=== PATIENT | male | born 1980 | race Caucasian/White ===

== ENCOUNTER 2020-04-05 06:40 | Outpatient (REF) | payer OTHER, SELFPAY ==
[2020-04-05 07:16] LABS: MANUAL DIFF FLAG NO
[2020-04-05 07:33] LABS: Basophils Absolute Auto 0.1 X10*3/uL (0.0-0.2); Basophils Percent Auto 0.7 % (0-2); Eosinophils Absolute Auto 0.2 X10*3/uL (0.0-0.4); Eosinophils Percent Auto 2.8 % (0-4); Hematocrit 46.7 % (42-52); Hemoglobin 15.2 g/dl (14.0-18.0); Imm Gran Abs Auto 0.02 X10*3/uL (0.00-0.03); Imm Gran Pct Auto 0.3 % (0.0-0.4); Lymphocytes Absolute Auto 2.6 X10*3/uL (1.2-4.9); Lymphocytes Percent Auto 37.6 % (20-40); Mean Corpuscular HGB Conc 32.5 g/dl (31.0-36.0); Mean Corpuscular Hemoglobin 26.8 pg (27.0-33.0); Mean Corpuscular Volume 82.2 fL (80-98); Mean Platelet Volume 11.8 fL (9.4-12.4); Monocytes Absolute Auto 0.5 X10*3/uL (0.1-1.2); Monocytes Percent Auto 7.7 % (2-11); Neutrophils Absolute Auto 3.5 X10*3/uL (2.0-8.3); Neutrophils Percent Auto 50.9 % (45-73); Platelet Count 192 X10*3/uL (160-400); Red Blood Count 5.68 X10*6/uL (4.60-5.80); Red Cell Distribution Width 13.7 % (11.0-16.0); White Blood Count 6.9 X10*3/uL (4.8-10.8)
[2020-04-05 07:46] LABS: Alanine Aminotransferase 13 U/L (0-40); Albumin Level 4.2 g/dL (3.5-5.0); Alkaline Phosphatase 48 U/L (39-117); Anion Gap 10 (12-20); Aspartate Amino Transferase 11 U/L (5-37); Bilirubin Total 2.2 mg/dL (0.0-1.0); Blood Urea Nitrogen 16 mg/dL (9-16); Calcium 8.9 mg/dL (8.4-10.2); Carbon Dioxide 26 mmol/L (22-29); Chloride 109 mmol/L (96-108); Cholesterol 203 mg/dL; Estimated Glomerular Filt Rate > 60; Glucose Fasting 102 mg/dL (60-99); HDL Cholesterol 39 mg/dL; LDL Cholesterol Calculated 139 mg/dl; Potassium 4.2 mmol/L (3.3-5.1); Sodium 141 mmol/L (135-145); Total Protein 6.5 g/dL (6.5-8.0); Triglycerides 128 mg/dL
== END 2020-04-05 06:41 | disposition home or self-care (01) ==
LOC: HO.LAB 06:40
PROVIDERS: Visit Provider Internal Medicine
DX: Z00.00 Encounter for general adult medical examination without abnormal findings (principal); E11.9 Type 2 diabetes mellitus without complications
CPT/HCPCS: 36415; 80053; 80061; 85025

== ENCOUNTER 2020-04-28 05:24 | Emergency (ER) | payer OTHER, SELFPAY ==
[2020-04-28 05:25] VITALS: BP 139/83; PULSE 78; RESP 18; TEMP 36.6; O2SAT 98; BMI 29.0
--- NOTE | 2020-04-28 06:32 | ED_ITS ---
HPI - General Adult General Chief complaint: Neck Pain/Injury Stated complaint: Neck pain Time Seen by Provider: 04/28/20 06:20 Source: patient Mode of arrival: ambulatory Limitations: no limitations History of Present Illness HPI narrative: 40-year-old male who presents emergency department for evaluation of neck pain x4 days. The patient does not recount any injury. States he had a gradual onset of pain in his neck muscles. The patient points to his a occipital area and to his trapezius muscles bilaterally when asked to localize the pain. He states the pain is a constant, spasm like pain which is 9/10 at its worst. The pain is worse with movement. He denies radiation of the pain to his arms, he denies numbness or weakness of his arms or legs. He denied fever, chills, cough, shortness of breath or dyspnea on exertion. The patient states he has had similar problems in the past and has been seen in the emergency department and also has been treated by his primary care physician. He states that he has been taking Advil 200 mg pills once or twice a day with no relief his pain. He states that in the past, he has benefitted from muscle relaxants. Related Data Previous Rx's Medication Instructions Recorded cyclobenzaprine 10 mg PO TID PRN #20 tab 04/28/20 Allergies Allergy/AdvReac Type Severity Reaction Status Date / Time codeine Allergy Severe RASH Verified 04/02/20 15:12 [From TYLENOL-CODEINE #3] oxycodone Allergy Unknown Nausea Verified 04/02/20 15:12 Review of Systems Review of Systems: Yes all other systems are reviewed and are negative PMFSH Past Medical History Medical History (Updated 04/28/20 @ 06:39 by Cheng Foley MD) Physical exam Surgical History History of appendectomy History of hernia repair Family History Family History Father No problems noted. Mother No problems noted. Social History Social History Alcohol intake: never Smoking Status: Never smoker Advance Directives: No Advance Directives Information Provided: No Physical Exam Vital Signs: Vital Signs: Last Vital Signs Temp 98 F 03/10/21 05:25 Pulse 78 04/28/20 05:25 Resp 18 04/28/20 05:25 BP 139/83 04/28/20 05:25 Pulse Ox 98 04/28/20 05:25 Body Mass Index 29.0 Const: General: cooperative and healthy appearing Orientation/consciousness: oriented to person and oriented to place Limitations: no limitations HENMT: Head: Yes normal to inspection, Yes normocephalic and Yes atraumatic Ears: external ears normal General nose exam: Normal external nose present Face and sinus: Yes normal facial exam Mouth: Normal oral and palatal mucosa present Throat: Yes posterior oropharynx normal Eyes: Periorbital: periorbital findings normal Eyelids: Yes eyelids normal Conjunctivae: conjunctivae normal Sclerae: sclerae normal Corneas: corneas normal Pupils: Equal, round and reactive pupils present Direct Ophthalmoscopy: normal light reflex Neck: Neck: Yes normal visual inspection, Yes no lymphadenopathy, Yes no meningeal signs, Yes trachea midline, Yes supple and Yes tender (Trapezius muscle bilaterally with spasm) Chest: Chest palpation & inspection: normal inspection of the chest and normal palpation of entire chest wall Resp: Effort & Inspection: normal respiratory effort and able to speak in complete sentences Auscultation: clear to auscultation bilaterally Cardio: Rate: regular rate Rhythm: regular rhythm Heart sounds: S1 normal heart sound present, S2 normal heart sound present and no murmurs GI: Inspection: Yes normal to inspection Palpation (GI): Soft to palpation, nontender, no guarding, not rigid and No hepatosplenomegaly present : General: Yes no CVA tenderness Back/Spine/Pelvis: Back: no CVA tenderness Cervical Spine: normal cervical lordosis Thoracic/Lumbar Spine: thoracic and lumbar spine normal to ins pection Skin: Lesions: no lesions Rashes: no rashes Wounds: no wounds Neuro: General: oriented to person, oriented to place and no meningeal signs Cranial nerves: Yes CN's II-XII intact bilaterally and Yes Equal, round and reactive pupils present Cognition (Neuro): normal cognition Motor exam (neuro): 5/5 motor strength present throughout Extrem: General: Yes normal to inspection and Yes full ROM Psych: Appearance: well kempt Mental Status: mental status grossly normal Speech and movement: Normal speech and movement present Affect: normal affect Attitude: cooperative Thought process: Normal thought process pres ent Thought content: Normal thought content present Course Course Course Narrative: 40-year-old male who presents emergency department for evaluation of spasm like muscle pain his trapezius muscles x4 days, the patient reports no injury and no systemic illness. Physical examination did reveal tenderness with palpation of the trapezius muscles with spasm these muscles. The patient was advised to take ibuprofen 200 mg pills, 3 pills every 6 hours and Tylenol (acetaminophen) 500 mg pills, 2 pills every 4 to 6 hours as needed for pain. He was prescribed cyclobenzaprine 10 mg every 6-8 hours as needed for pain and spasm. He was given verbal and printed instructions and discharged home. Discharge Plan Discharge Clinical Impression: Strain of neck muscle Qualifiers: Encounter type: initial encounter Qualified Code(s): S16.1XXA - Strain of muscle, fascia and tendon at neck level, initial encounter Patient Disposition: Home, Self-Care Instructions: Acute Neck Pain (ED) Additional Instructions: Neck Pain Discharge Instructions: Take Motri(ibuprofen) 200 mg pills, 3 pills every 6 hours as needed for pain. Take Tyleno(acetaminophen) 500 mg pills, 2 pills every 6 hours as needed for pain. Take Flexerl(cyclobenzaprine) 10 mg pills, 1 pill every 8 hours as needed for pain or muscle spasm. This is a prescription medication. This medication will make you sleepy, therefore do not drive or work while taking this medication. Apply ice for 15 minutes to the area that hurts on your neck, then apply a heating a pad on low for 15 minutes. Do this 4-6 times a day to help reduce the pain in your neck. Continue with normal activities as tolerated since staying in bed and not moving around will make your pain worse. Please return to the Emergency Department or see your doctor immediately if your symptoms get worse or if you develop any new symptoms that are concerning you. Follow up with your doctor in 2 day. Please read the other printed discharge instructions on back pain. Prescriptions: New cyclobenzaprine 10 mg tablet 10 mg PO TID PRN (Reason: muscle pain or spasm) Qty: 20 RF: 0
== END 2020-04-28 06:48 | disposition home or self-care (01) ==
PROVIDERS: Emergency Provider Emergency Medicine Emergency Medical Services; PCP Internal Medicine
DX: S16.1XXA Strain of muscle, fascia and tendon at neck level, initial encounter (principal); M54.2 Cervicalgia; X58.XXXA Exposure to other specified factors, initial encounter; Y93.9 Activity, unspecified; Y92.9 Unspecified place or not applicable; Y99.9 Unspecified external cause status; Z79.899 Other long term (current) drug therapy
CPT/HCPCS: 99283

== ENCOUNTER 2021-02-14 10:14 | Emergency (ER) | payer OTHER, SELFPAY ==
[2021-02-14 11:14] VITALS: BP 142/86; PULSE 106; RESP 18; TEMP 36.9; O2SAT 96; BMI 30.4
--- NOTE | 2021-02-14 11:34 | ED.URI ---
HPI - URI/Sore Throat General Chief Complaint: Upper Respiratory Symptoms Stated Complaint: Sore throat Sinus pressure Time Seen by Provider: 02/14/21 11:30 Source: patient Mode of arrival: ambulatory Limitations: no limitations History of Present Illness MD elicited complaint: sore throat, rhinorrhea, nasal congestion and sinus pain Pertinent past history: other (vaccinated x 2) Onset (ago): day(s) (2) Consistency: constant Severity: mild Description of mucous: clear Able to tolerate fluids by mouth: Yes Exacerbating factors: nothing Relieving factors: nothing Context: other (hx of sinusitis in the past) Associated symptoms: nasal congestion and sore throat Treatments prior to arrival: none Related Data Previous Rx's Medication Instructions Recorded albuterol sulfate 90 mcg/actuation 2 puff PO Q6H PRN #18 g 01/05/21 aerosol inhaler (ProAir HFA) amoxicillin 875 mg-potassium 1 tab PO BID #14 tab 02/14/21 clavulanate 125 mg tablet (Augmentin) Allergies Allergy/AdvReac Type Severity Reaction Status Date / Time codeine Allergy Severe RASH Verified 02/14/21 11:13 [From TYLENOL-CODEINE #3] oxycodone Allergy Unknown Nausea Verified 02/14/21 11:13 Review of Systems Review of Systems: Constitutional : no Fever, no Chills, no fatigue, no Malaise ENT/Mouth : positive sore throat, positive runny nose, pos sinus pain Eyes: No Discharge Cardiovascular : No Chest Pain, No SOB Respiratory : No Cough, No Sputum Gastrointestinal : No Nausea, No Vomiting, No Diarrhea Genitourinary : No Dysuria, No Urinary Frequency Musculoskeletal : no Myalgia Skin : No rash Neuro : No Headache PMFSH Past Medical History Medical History Acute sinus infection Asthma Obesity Physical exam Surgical History History of appendectomy History of hernia repair Family History Family History Father No problems noted. Mother No problems noted. Social History Social History Housing: Apartment Alcohol intake: never Patient Tobacco Use Status: Never used Tobacco e-Cigarette/Vaping Use: Never Used Second Hand Smoke Exposure: No Advance Directives: No Advance Directives Information Provided: No service: No Current occupational status: unemployed Cognitive needs: No Hearing needs: No Vision needs: No Physical Exam Vital Signs: Vital Signs: Last Vital Signs Temp 98.5 F 02/14/21 11:14 Pulse 106 H 02/14/21 11:14 Resp 18 02/14/21 11:14 BP 142/86 H 02/14/21 11:14 Pulse Ox 96 02/14/21 11:14 BMI result Body Mass Index 30.4 Appearance: Alert. Oriented X3. No acute distress. Eyes: Pupils equal, round and reactive to light. ENT: Pharynx moderate generalized erythema no patches noted - also has sinus congestion and ttp along both maxillary sinuses no swelling noted Neck: Normal inspection. Neck supple. CVS: Normal heart rate and rhythm. Pulses normal. Respiratory: No respiratory distress. Breath sounds normal. Abdomen: Soft and nontender. Skin: Skin warm and dry. Normal skin color. Normal skin turgor. Extremities: No lower extremity edema. No calf ttp Neuro: Oriented X 3. No motor deficit. No sensory deficit. MDM - URI/Sore Throat MDM Narrative Medical decision making narrative: 40 yo male hx of asthma here with sore throat and sinus pressure and congestion - at this time not toxic, no hypoxia he has had two of his pfizer shots - hx of sinusitis in the past feels the same will order strep and COVID swabs. Likely start on augmentin. Lab Data Labs: Lab Results 02/14/21 02/14/21 Range/Units 11:26 11:54 COVID-19 (DOMI) Negative (Negative) COVID-19 Clin Com See Note S. pyogenes GrpA ILDA Negative (Negative) Discharge Plan Discharge Clinical Impression: Sinusitis Qualifiers: Sinusitis location: maxillary Chronicity: acute Recurrence: non-recurrent Qualified Code(s): J01.00 - Acute maxillary sinusitis, unspecified Patient Disposition: Home, Self-Care Instructions: Sinusitis (ED) Additional Instructions: return to ED for any worsening symptoms or concerns COVID negative please get the booster it is preventing serious illness from the new COVID variants Prescriptions: New amoxicillin-pot clavulanate [Augmentin] 875-125 mg tablet 1 tab PO BID Qty: 14 RF: 0 No Action albuterol sulfate [ProAir HFA] 90 mcg/actuation HFA aerosol inhaler 2 puff PO Q6H PRN (Reason: bronchospasm) Qty: 18 RF: 8 Referrals: Crow Omer MD [Primary Care Provider] - 2 days (if not better) Interventions: ED Discharge Assessment Last Done: 02/14/21 12:26 Discharge Date/Time: 02/14/21 12:27
[2021-02-14 11:50] LABS: COVID-19 Test Negative (Negative)
[2021-02-14 12:20] LABS: Strep A Nucleic Acid Negative (Negative)
== END 2021-02-14 12:27 | disposition home or self-care (01) ==
PROVIDERS: Emergency Provider Emergency Medicine; PCP Internal Medicine
DX: J01.00 Acute maxillary sinusitis, unspecified (principal); J45.909 Unspecified asthma, uncomplicated; Z20.822 Contact with and (suspected) exposure to COVID-19
CPT/HCPCS: 36415; 87635; 87651; 99283

== ENCOUNTER 2021-04-04 09:43 | Outpatient (REF) | payer OTHER, SELFPAY ==
[2021-04-04 09:54] LABS: MANUAL DIFF FLAG NO
[2021-04-04 10:41] LABS: Alanine Aminotransferase 16 U/L (0-40); Albumin Level 4.5 g/dL (3.5-5.0); Alkaline Phosphatase 55 U/L (39-117); Anion Gap 10 (12-20); Aspartate Amino Transferase 12 U/L (5-37); Bilirubin Total 2.3 mg/dL (0.0-1.0); Blood Urea Nitrogen 13 mg/dL (9-16); Carbon Dioxide 28 mmol/L (22-29); Chloride 107 mmol/L (96-108); Cholesterol 233 mg/dL; Estimated Glomerular Filt Rate > 60; Glucose Fasting 110 mg/dL (60-99); HDL Cholesterol 34 mg/dL; LDL Cholesterol Calculated 163 mg/dl; Potassium 4.4 mmol/L (3.3-5.1); Sodium 141 mmol/L (135-145); Total Protein 7.1 g/dL (6.5-8.0); Triglycerides 182 mg/dL
[2021-04-04 10:47] LABS: Basophils Percent Auto 0.5 % (0-2); Eosinophils Absolute Auto 0.2 X10*3/uL (0.0-0.4); Eosinophils Percent Auto 2.6 % (0-4); Hematocrit 47.5 % (42.0-52.0); Hemoglobin 15.6 g/dl (14.0-18.0); Imm Gran Abs Auto 0.02 X10*3/uL (0.00-0.03); Imm Gran Pct Auto 0.3 % (0.0-0.4); Lymphocytes Absolute Auto 2.5 X10*3/uL (1.2-4.9); Lymphocytes Percent Auto 34.1 % (20-40); Mean Corpuscular HGB Conc 32.8 g/dl (31.0-36.0); Mean Corpuscular Hemoglobin 26.9 pg (27.0-33.0); Mean Corpuscular Volume 81.8 fL (80.0-98.0); Mean Platelet Volume 12.2 fL (9.4-12.4); Monocytes Absolute Auto 0.7 X10*3/uL (0.1-1.2); Monocytes Percent Auto 8.9 % (2-11); Neutrophils Percent Auto 53.6 % (45-73); Platelet Count 207 X10*3/uL (160-400); Red Blood Count 5.81 X10*6/uL (4.60-5.80); White Blood Count 7.5 X10*3/uL (4.8-10.8)
== END 2021-04-04 09:44 | disposition home or self-care (01) ==
LOC: HO.LAB 09:43
PROVIDERS: PCP Internal Medicine; Visit Provider Internal Medicine
DX: Z00.00 Encounter for general adult medical examination without abnormal findings (principal); Z13.0 Encounter for screening for diseases of the blood and blood-forming organs and certain disorders involving the immune mechanism
CPT/HCPCS: 36415; 80053; 80061; 85025

== ENCOUNTER 2021-06-21 06:23 | Emergency (ER) | payer OTHER, SELFPAY ==
--- NOTE | ~2021-06-21 | XR_ITS ---
EXAMINATION: XR CHEST CLINICAL INFORMATION: Cough, Covid positive COMPARISON: 04/05/2018 TECHNIQUE: Frontal view of the chest was obtained. FINDINGS: The cardiomediastinal silhouette is normal. There is no dense consolidation, pleural effusion or pneumothorax. XR/XR chest 1V IMPRESSION: No acute cardiopulmonary process.
[2021-06-21 06:36] VITALS: BP 144/103; PULSE 81; RESP 18; TEMP 36.4; O2SAT 94; BMI 29.8
[2021-06-21 06:49] LABS: COVID-19 Test Positive (Negative); IDNOW Serial# 55D5AD1C
[2021-06-21 06:55] LABS: Influenza A Negative (Negative); Influenza B2 Negative (Negative)
--- NOTE | 2021-06-21 07:16 | ED.URI ---
HPI - URI/Sore Throat General Chief Complaint: General Medical Stated Complaint: flu like symptoms Time Seen by Provider: 06/21/21 06:58 Source: patient Mode of arrival: ambulatory Limitations: no limitations History of Present Illness MD elicited complaint: cough, nasal congestion and sinus pain Pertinent past history: sinusitis and asthma Onset (ago): day(s) (5) Consistency: constant Severity: mild Description of mucous: clear Able to tolerate fluids by mouth: Yes Exacerbating factors: supine positioning Relieving factors: nothing Context: other (vaccinated x 2) Associated symptoms: nasal congestion and cough Treatments prior to arrival: none Related Data Previous Rx's Medication Instructions Recorded albuterol sulfate 90 mcg/actuation 2 puff PO Q6H PRN #18 g 01/05/21 aerosol inhaler (ProAir HFA) amoxicillin 500 mg tablet 500 mg PO BID 7 Days #14 tab 06/21/21 Allergies Allergy/AdvReac Type Severity Reaction Status Date / Time codeine Allergy Severe RASH Verified 04/04/21 08:59 [From TYLENOL-CODEINE #3] oxycodone Allergy Unknown Nausea Verified 04/04/21 08:59 Review of Systems Review of Systems: Constitutional : No Fever, No Chills, No Fatigue, No Malaise ENT/Mouth : No sore throat, No Rhinorrhea, pos sinus pain, pos nasal congestion Eyes: No Eye Pain, No Swelling, No Redness Cardiovascular : No Chest Pain, No SOB, No Dyspnea on Exertion, No Orthopnea, No Edema, No Palpitations Respiratory : pos Cough, No Sputum, No Wheezing Gastrointestinal : No Nausea, No Vomiting, No Diarrhea, No Constipation, No abdominal Pain, No Hematochezia, No Melena Genitourinary : No Dysuria, No Urinary Frequency, No Hematuria, Musculoskeletal : No joint pain, No Myalgias, No Joint Swelling Skin : No Skin Lesions, No rash Neuro : No Weakness, No Numbness, No Dizziness, No Headache All other systems reviewed and are negative [facility] Past Medical History Attestation statement: The following information was validated with the patient. Medical History Acute sinus infection Asthma Obesity Physical exam Surgical History History of appendectomy History of hernia repair Family History Family History Father No problems noted. Mother No problems noted. Social History Social History Housing: Apartment Alcohol intake: never Patient Tobacco Use Status: Never used Tobacco e-Cigarette/Vaping Use: Never Used Second Hand Smoke Exposure: No Advance Directives: No Advance Directives Information Provided: Yes service: No Current occupational status: unemployed Cognitive needs: No Hearing needs: No Vision needs: No Physical Exam Vital Signs: Vital Signs: Last Vital Signs Temp 98.4 F 06/21/21 07:57 Pulse 73 06/21/21 07:57 Resp 16 06/21/21 07:57 BP 130/87 06/21/21 07:57 Pulse Ox 97 06/21/21 07:57 BMI result Body Mass Index 29.8 Appearance: Alert. Oriented X3. No acute distress. Eyes: Pupils equal, round and reactive to light. ENT: Pharynx normal. Neck: Normal inspection. Neck supple. CVS: Normal heart rate and rhythm. Pulses normal. Respiratory: No respiratory distress. Breath sounds normal. Abdomen: Soft and non-tender. Skin: Skin warm and dry. Normal skin color. Normal skin turgor. Extremities: No lower extremity edema. Neuro: Oriented X 3. No motor deficit. No sensory deficit. MDM - URI/Sore Throat MDM Narrative Medical decision making narrative: 41 yo male hx of sinusitis and asthma vaccinated x 2 here with c/o URI symptoms x 5 days - at this time given asthma hx of and obesity would quality for treatments for COVID he has no resp distress 98% in the room - will refer to [facility]. Dx with COVID. Does not require inpatient treatment denies CP/SOB. Lab Data Result diagrams: 06/21/21 07:50 06/21/21 07:50 Labs: Lab Results 06/21/21 06/21/21 06/21/21 Range/Units 06:33 06:33 07:50 WBC 6.8 (4.8-10.8) X10*3/uL RBC 5.55 (4.60-5.80) X10*6/uL Hgb 14.8 (14.0-18.0) g/dl Hct 44.9 (42.0-52.0) % MCV 80.9 (80.0-98.0) fL MCH 26.7 L (27.0-33.0) pg MCHC 33.0 (31.0-36.0) g/dl RDW 14.3 (11.0-16.0) % Plt Count 160 (160-400) X10*3/uL MPV 11.0 (9.4-12.4) fL Immature Gran % (Auto) 0.3 (0.0-0.4) % Neut % (Auto) 55.3 (45-73) % Lymph % (Auto) 27.5 (20-40) % Gosper % (Auto) 12.4 H (2-11) % Eos % (Auto) 4.2 H (0-4) % Baso % (Auto) 0.3 (0-2) % Lymph # (Auto) 1.9 (1.2-4.9) X10*3/uL Gosper # (Auto) 0.9 (0.1-1.2) X10*3/uL Eos # (Auto) 0.3 (0.0-0.4) X10*3/uL Baso # (Auto) 0.0 (0.0-0.2) X10*3/uL Abs Immat Gran (auto) 0.02 (0.00-0.03) X10*3/uL Absolute Neuts (auto) 3.8 (2.0-8.3) x10*3/uL Absolute Nucleated RBC 0.000 (0.0-0.012) X10*3/uL Nucleated RBC % (auto) 0.0 (0.0-0.2) /100WBC Sodium (135-145) mmol/L Potassium (3.3-5.1) mmol/L Chloride (96-108) mmol/L Carbon Dioxide (22-29) mmol/L Anion Gap (12-20) BUN (9-16) mg/dL Creatinine (0.5-1.4) mg/dL Estim Creat Clear Calc Estimated GFR Random Glucose (60-115) mg/dL Calcium (8.4-10.2) mg/dL Total Bilirubin (0.0-1.0) mg/dL Direct Bilirubin (0.0-0.5) mg/dL AST (5-37) U/L ALT (0-40) U/L Alkaline Phosphatase (39-117) U/L Total Protein (6.5-8.0) g/dL Albumin (3.5-5.0) g/dL COVID-19 (DOMI) Positive A (Negative) COVID-19 Clin Com See Note Influenza Type A (ILDA) Negative (Negative) Influenza Type B (ILDA) Negative (Negative) Influenza A & B Note See Note 06/21/21 Range/Units 07:50 WBC (4.8-10.8) X10*3/uL RBC (4.60-5.80) X10*6/uL Hgb (14.0-18.0) g/dl Hct (42.0-52.0) % MCV (80.0-98.0) fL MCH (27.0-33.0) pg MCHC (31.0-36.0) g/dl RDW (11.0-16.0) % Plt Count (160-400) X10*3/uL MPV (9.4-12.4) fL Immature Gran % (Auto) (0.0-0.4) % Neut % (Auto) (45-73) % Lymph % (Auto) (20-40) % Gosper % (Auto) (2-11) % Eos % (Auto) (0-4) % Baso % (Auto) (0-2) % Lymph # (Auto) (1.2-4.9) X10*3/uL Gosper # (Auto) (0.1-1.2) X10*3/uL Eos # (Auto) (0.0-0.4) X10*3/uL Baso # (Auto) (0.0-0.2) X10*3/uL Abs Immat Gran (auto) (0.00-0.03) X10*3/uL Absolute Neuts (auto) (2.0-8.3) x10*3/uL Absolute Nucleated RBC (0.0-0.012) X10*3/uL Nucleated RBC % (auto) (0.0-0.2) /100WBC Sodium 140 (135-145) mmol/L Potassium 4.3 (3.3-5.1) mmol/L Chloride 107 (96-108) mmol/L Carbon Dioxide 26 (22-29) mmol/L Anion Gap 11 L (12-20) BUN 10 (9-16) mg/dL Creatinine 0.89 (0.5-1.4) mg/dL Estim Creat Clear Calc 133.6 Estimated GFR > 60 Random Glucose 108 (60-115) mg/dL Calcium 9.1 D (8.4-10.2) mg/dL Total Bilirubin 1.0 (0.0-1.0) mg/dL Direct Bilirubin 0.3 (0.0-0.5) mg/dL AST 18 D (5-37) U/L ALT 28 (0-40) U/L Alkaline Phosphatase 52 (39-117) U/L Total Protein 6.7 (6.5-8.0) g/dL Albumin 4.0 (3.5-5.0) g/dL COVID-19 (DOMI) (Negative) COVID-19 Clin Com Influenza Type A (ILDA) (Negative) Influenza Type B (ILDA) (Negative) Influenza A & B Note Discharge Plan Discharge Clinical Impression: COVID-19 Sinusitis Qualifiers: Sinusitis location: maxillary Chronicity: acute Recurrence: non-recurrent Qualified Code(s): J01.00 - Acute maxillary sinusitis, unspecified Patient Disposition: Home, Self-Care Instructions: Sinusitis (ED), COVID-19 (Coronavirus Disease 2019) (ED) Additional Instructions: return to ED for any worsening symptoms or concerns you were reffered [facility] they will be contacting you labs and chest xray were normal Prescriptions: New amoxicillin 500 mg tablet 500 mg PO BID 7 Days Qty: 14 0RF No Action albuterol sulfate [ProAir HFA] 90 mcg/actuation HFA aerosol inhaler 2 puff PO Q6H PRN (Reason: bronchospasm) Qty: 18 8RF Stand Alone Forms: Work/School Release
[2021-06-21 07:57] VITALS: BP 130/87; PULSE 73; RESP 16; TEMP 36.9; O2SAT 97
[2021-06-21 07:57] LABS: MANUAL DIFF FLAG NO
[2021-06-21 07:58] LABS: Basophils Percent Auto 0.3 % (0-2); Eosinophils Absolute Auto 0.3 X10*3/uL (0.0-0.4); Eosinophils Percent Auto 4.2 % (0-4); Hematocrit 44.9 % (42.0-52.0); Hemoglobin 14.8 g/dl (14.0-18.0); Imm Gran Abs Auto 0.02 X10*3/uL (0.00-0.03); Imm Gran Pct Auto 0.3 % (0.0-0.4); Lymphocytes Absolute Auto 1.9 X10*3/uL (1.2-4.9); Lymphocytes Percent Auto 27.5 % (20-40); Mean Corpuscular Hemoglobin 26.7 pg (27.0-33.0); Mean Corpuscular Volume 80.9 fL (80.0-98.0); Monocytes Absolute Auto 0.9 X10*3/uL (0.1-1.2); Monocytes Percent Auto 12.4 % (2-11); Neutrophils Absolute Auto 3.8 x10*3/uL (2.0-8.3); Neutrophils Percent Auto 55.3 % (45-73); Platelet Count 160 X10*3/uL (160-400); Red Blood Count 5.55 X10*6/uL (4.60-5.80); Red Cell Distribution Width 14.3 % (11.0-16.0); White Blood Count 6.8 X10*3/uL (4.8-10.8)
[2021-06-21 08:34] LABS: Alanine Aminotransferase 28 U/L (0-40); Alkaline Phosphatase 52 U/L (39-117); Anion Gap 11 (12-20); Aspartate Amino Transferase 18 U/L (5-37); Bilirubin Direct 0.3 mg/dL (0.0-0.5); Blood Urea Nitrogen 10 mg/dL (9-16); Calcium 9.1 mg/dL (8.4-10.2); Carbon Dioxide 26 mmol/L (22-29); Chloride 107 mmol/L (96-108); Creatinine Clr Calc Pharmacy 133.6; Estimated Glomerular Filt Rate > 60; Glucose Random 108 mg/dL (60-115); Potassium 4.3 mmol/L (3.3-5.1); Sodium 140 mmol/L (135-145); Total Protein 6.7 g/dL (6.5-8.0)
== END 2021-06-21 09:01 | disposition home or self-care (01) ==
PROVIDERS: Emergency Provider Emergency Medicine
DX: U07.1 COVID-19 (principal); J01.00 Acute maxillary sinusitis, unspecified; R05.9 Cough, unspecified; R09.81 Nasal congestion; Z79.899 Other long term (current) drug therapy
CPT/HCPCS: 36415; 71045; 80048; 80076; 85025; 87502; 87635; 99283

== ENCOUNTER 2022-04-24 08:27 | Emergency (ER) | payer OTHER, SELFPAY ==
--- NOTE | ~2022-04-24 | XR_ITS ---
EXAMINATION: XR CHEST CLINICAL INFORMATION: Chest pain COMPARISON: 06/21/2021. TECHNIQUE: 2 views of the chest were obtained. FINDINGS: No significant abnormality is noted involving the heart, lungs, mediastinum, bony thorax or soft tissues. XR/XR chest 2V IMPRESSION: Unremarkable examination.
--- NOTE | 2022-04-24 08:31 | ECG_ITS ---
Test Reason : CHEST PAIN Blood Pressure : / mmHG Vent. Rate : 070 BPM Atrial Rate : 070 BPM P-R Int : 164 ms QRS Dur : 078 ms QT Int : 370 ms P-R-T Axes : 035 046 037 degrees QTc Int : 399 ms Normal sinus rhythm Possible Left atrial enlargement Borderline ECG No significant changes when compared with the previous EKG of 05 jan 2017 Referred By: Generic ED Physician Electronically Signed By:RAMESH PIERCE
[2022-04-24 08:55] VITALS: BP 142/98; PULSE 76; RESP 20; TEMP 37; O2SAT 99; BMI 29.4
[2022-04-24 09:12] LABS: MANUAL DIFF FLAG NO
[2022-04-24 09:18] LABS: Basophils Absolute Auto 0.1 X10*3/uL (0.0-0.2); Basophils Percent Auto 0.7 % (0-2); Eosinophils Absolute Auto 0.3 X10*3/uL (0.0-0.4); Eosinophils Percent Auto 3.7 % (0-4); Hematocrit 47.3 % (42.0-52.0); Hemoglobin 15.8 g/dl (14.0-18.0); Imm Gran Abs Auto 0.02 X10*3/uL (0.00-0.03); Imm Gran Pct Auto 0.3 % (0.0-0.4); Lymphocytes Absolute Auto 2.7 X10*3/uL (1.2-4.9); Lymphocytes Percent Auto 37.4 % (20-40); Mean Corpuscular HGB Conc 33.4 g/dl (31.0-36.0); Mean Corpuscular Hemoglobin 27.4 pg (27.0-33.0); Mean Corpuscular Volume 82.1 fL (80.0-98.0); Mean Platelet Volume 11.7 fL (9.4-12.4); Monocytes Absolute Auto 0.6 X10*3/uL (0.1-1.2); Monocytes Percent Auto 8.1 % (2-11); Neutrophils Absolute Auto 3.6 x10*3/uL (2.0-8.3); Neutrophils Percent Auto 49.8 % (45-73); Platelet Count 187 X10*3/uL (160-400); Red Blood Count 5.76 X10*6/uL (4.60-5.80); Red Cell Distribution Width 14.5 % (11.0-16.0); White Blood Count 7.3 X10*3/uL (4.8-10.8)
[2022-04-24 09:27] LABS: Anion Gap 10 (12-20); Blood Urea Nitrogen 15 mg/dL (9-16); Calcium 9.1 mg/dL (8.4-10.2); Carbon Dioxide 26 mmol/L (22-29); Chloride 110 mmol/L (96-108); Creatinine Clr Calc Pharmacy 146.2; Estimated Glomerular Filt Rate > 60; Glucose Random 106 mg/dL (60-115); Sodium 142 mmol/L (135-145)
[2022-04-24 09:35] LABS: Troponin-I High Sensitivity 5.9 ng/L (<3.5-35.0)
--- NOTE | 2022-04-24 15:12 | ED_ITS ---
HPI - Chest Pain General Chief Complaint: Chest Pain Stated Complaint: Chest pain/L arm pain Time Seen by Provider: 04/24/22 14:51 Source: patient, family and RN notes reviewed Mode of arrival: ambulatory Limitations: no limitations History of Present Illness HPI narrative: This is a 42-year-old male, with past medical history of asthma, who presents to the emergency department today with complaints of intermittent chest pain for the last few weeks, worsening last night. but has been ongoing for >1 yr. Patient reports that he has had intermittent mid-sternal chest pain, which radiates down his left arm which typically lasts for 45 minutes to 1 hour and resolves on its own. Patient reports that the pain worsens with lying down and inspiration, and it improves with leaning forward. Patient reports that last night he took ibuprofen 200 mg which provided him with some relief. Patient admits to having some shortness of breath, diaphoresis, and decreased appetite secondary to the chest pain. He otherwise denies any palpitations, calf pain, swelling in his legs vomiting, or diarrhea. He denies any recent travels, surgeries, cancer history, or tobacco use. Patient denies any known cardiac history, reports his father had a history of coronary artery disease. He has a primary care physician who he saw several weeks ago and addressed these chest pain concerns, reports that his primary care physician orders labs but he reports the lab was too busy and has not had these labs drawn. MD complaint: chest pain Pertinent past history: asthma Onset (ago): week(s) Timing of current episode: episodic Prior episodes: Yes Onset: during rest Pain location: substernal Pain radiation: left arm Severity: moderate Quality: tightness and aching Relieving factors: leaning forward Exacerbating factors: inspiration, supine and movement Associated symptoms: diaphoresis and dyspnea Treatment prior to arrival: none Risk Factors Coronary artery disease risk factors: family history of CAD before age 50 Thoracic aortic dissection risk factors: none Related Data Previous Rx's Medication Instructions Recorded albuterol sulfate 90 mcg/actuation 2 puff PO Q6H PRN bronchospasm #18 02/02/22 aerosol inhaler (ProAir HFA) grams Allergies Allergy/AdvReac Type Severity Reaction Status Date / Time codeine Allergy Severe RASH Verified 04/04/21 08:59 [From TYLENOL-CODEINE #3] oxycodone Allergy Unknown Nausea Verified 04/04/21 08:59 Review of Systems Review of Systems: Yes all other systems are reviewed and are negative Constitutional: Constitutional: Reports no additional constitutional complaints, Denies body ache(s), Denies chills, Denies fever(s), Denies head ache(s) and Denies weakness Eyes: Eyes: Reports no additional eye complaints and Denies change in vision ENT: Reports system reviewed and no additional complaints, except as documented, Denies dizziness, Denies headache(s), Denies nasal congestion, Denies nasal discharge and Denies neck pain Cardiovascular: Cardiovascular: Reports no additional cardiovascular complaints, Reports chest pain, Denies leg edema, Reports radiating jaw, neck or arm pain and Reports dyspnea Respiratory: Respiratory: Reports no additional respiratory complaints, Denies cough and Reports dyspnea Gastrointestinal: Gastrointestinal: Reports no additional gastrointestinal co mplaints, Denies abdominal pain, Denies diarrhea, Denies nausea and Denies vomiting Genitourinary: Genitourinary: Denies urinary incontinence Musculoskeletal: Musculoskeletal: Reports no additional musculoskeletal complaints, Denies back pain, Denies arthralgias, Denies joint swelling, Denies neck pain, Denies numbness and Denies tingling Integumentary/Breasts: Skin/Breast: Reports system reviewed and no additional complaints, except as docu and Denies rash Neurologic: Reports system reviewed and no additional complaints, except as documented, Denies Abnormal speech present, Denies dizziness, Denies h eadache(s), Denies numbness, Denies tingling and Denies weakness PMFSH Past Medical History Medical History Acute sinus infection Asthma Obesity Physical exam Surgical History History of appendectomy History of hernia repair Family History Family History Father No problems noted. Mother No problems noted. Social History Social History Housing: Apartment Alcohol intake: never Patient Tobacco Use Status: Never used Tobacco Tobacco use type: Cigarette e-Cigarette/Vaping Use: Never Used Second Hand Smoke Exposure: No Advance Directives: No Advance Directives Information Provided: No service: No Current occupational status: unemployed Cognitive needs: No Hearing needs: No Vision needs: No Physical Exam Vital Signs: Vital Signs: Last Vital Signs Temp 98.6 F 04/24/22 08:55 Pulse 68 04/24/22 16:49 Resp 18 04/24/22 16:49 BP 134/78 04/24/22 16:49 Pulse Ox 98 04/24/22 16:49 O2 Del Method 04/24/22 16:49 BMI result Body Mass Index 29.4 Const: General: cooperative, healthy appearing, comfortable and no acute distress Orientation/consciousness: patient oriented x3 Limitations: no limitations HEENT: Head: Yes normal to inspection Ears: hearing grossly normal bilaterally General nose exam: Normal external nose present Face and sinus: Yes normal facial exam Mouth: Normal oral and palatal mucosa present Throat: Yes posterior oropharynx normal Eyes: General: appearance normal, both eyes and all related structures Pupils: Equal, round and reactive pupils present Neck: Neck: Yes normal visual inspection Chest: Other: Chest is nontender to palpation. Chest palpation & inspection: normal inspection of the chest Resp: Other: Reporting pleuritic chest pain upon inspiration. Effort & Inspection: normal respiratory effort Auscultation: clear to auscultation bilaterally Cardio: Rate: regular rate Rhythm: regular rhythm Peripheral pulses: Peripheral pulses 2+ throughout GI: Inspection: Yes normal to inspection Palpation (GI): Soft to palpation and nontender Auscultation: normal bowel sounds Back/Spine/Pelvis: Thoracic/Lumbar Spine: thoracic and lumbar spine normal to inspection Skin: General skin exam: no rashes or lesions noted Neuro: General: patient oriented x3, no focal motor deficits and normal sensation to monofilament Cranial nerves: Yes Equal, round and reactive pupils present Cognition (Neuro): normal cognition Speech: No Abnormal speech present Gait exam (Neuro): Normal gait present Motor exam (neuro): 5/5 motor strength present throughout Extrem: General: Yes normal to inspection Course Course Course Narrative: 1522 - Troponin within normal limits. PERC negative, however patient with pleuritic chest pain with inspiration. Will obtain D-dimer. Reevaluation(s) Reevaluation #1: 1630-troponin x2 are negative. D-dimer is negative. Symptoms are atypical for ACS, nonexertional in nature. HEART score is 0. Recommend patient follow up outpatient this primary care doctor. Reviewed worrisome signs symptoms of when to return to the emergency room. Comfortable plan for discharge home. Medical Decision Making Medical Decision Making [facility] Narrative: This is a 42-year-old male, with a past medical history of asthma, presents today for evaluation of intermittent episodes of chest pain for the last several weeks, worsening since last night. Will obtain EKG, chest x-ray, labs, and cardiac enzymes. Differential Diagnosis Differential Diagnoses: The differential diagnosis associated with the presentation includes ACS, PE, AAA, pericarditis, pneumonia, costochondritis, chest wall strain Lab Data [facility] Lab Attestation statement: I reviewed the patient's lab results. 04/24/22 09:08 04/24/22 09:08 Labs: Lab Results 04/24/22 04/24/22 04/24/22 Range/Units 09:08 09:08 09:08 WBC 7.3 (4.8-10.8) X10*3/uL RBC 5.76 (4.60-5.80) X10*6/uL Hgb 15.8 (14.0-18.0) g/dl Hct 47.3 (42.0-52.0) % MCV 82.1 (80.0-98.0) fL MCH 27.4 (27.0-33.0) pg MCHC 33.4 (31.0-36.0) g/dl RDW 14.5 (11.0-16.0) % Plt Count 187 (160-400) X10*3/uL MPV 11.7 (9.4-12.4) fL Immature Gran % (Auto) 0.3 (0.0-0.4) % Neut % (Auto) 49.8 (45-73) % Lymph % (Auto) 37.4 (20-40) % [place] % (Auto) 8.1 (2-11) % Eos % (Auto) 3.7 (0-4) % Baso % (Auto) 0.7 (0-2) % Lymph # (Auto) 2.7 (1.2-4.9) X10*3/uL [place] # (Auto) 0.6 (0.1-1.2) X10*3/uL Eos # (Auto) 0.3 (0.0-0.4) X10*3/uL Baso # (Auto) 0.1 (0.0-0.2) X10*3/uL Abs Immat Gran (auto) 0.02 (0.00-0.03) X10*3/uL Absolute Neuts (auto) 3.6 (2.0-8.3) x10*3/uL Absolute Nucleated RBC 0.000 (0.0-0.012) X10*3/uL Nucleated RBC % (auto) 0.0 (0.0-0.2) /100WBC D-Dimer High Sensitivty NG/ML Sodium 142 (135-145) mmol/L Potassium 4.0 (3.3-5.1) mmol/L Chloride 110 H (96-108) mmol/L Carbon Dioxide 26 (22-29) mmol/L Anion Gap 10 L (12-20) BUN 15 (9-16) mg/dL Creatinine 0.80 (0.5-1.4) mg/dL Estim Creat Clear Calc 146.2 Estimated GFR > 60 Random Glucose 106 (60-115) mg/dL Calcium 9.1 (8.4-10.2) mg/dL Troponin I High Sens 5.9 (<3.5-35.0) ng/L 04/24/22 04/24/22 Range/Units 15:51 15:51 WBC (4.8-10.8) X10*3/uL RBC (4.60-5.80) X10*6/uL Hgb (14.0-18.0) g/dl Hct (42.0-52.0) % MCV (80.0-98.0) fL MCH (27.0-33.0) pg MCHC (31.0-36.0) g/dl RDW (11.0-16.0) % Plt Count (160-400) X10*3/uL MPV (9.4-12.4) fL Immature Gran % (Auto) (0.0-0.4) % Neut % (Auto) (45-73) % Lymph % (Auto) (20-40) % [place] % (Auto) (2-11) % Eos % (Auto) (0-4) % Baso % (Auto) (0-2) % Lymph # (Auto) (1.2-4.9) X10*3/uL [place] # (Auto) (0.1-1.2) X10*3/uL Eos # (Auto) (0.0-0.4) X10*3/uL Baso # (Auto) (0.0-0.2) X10*3/uL Abs Immat Gran (auto) (0.00-0.03) X10*3/uL Absolute Neuts (auto) (2.0-8.3) x10*3/uL Absolute Nucleated RBC (0.0-0.012) X10*3/uL Nucleated RBC % (auto) (0.0-0.2) /100WBC D-Dimer High Sensitivty 175 NG/ML Sodium (135-145) mmol/L Potassium (3.3-5.1) mmol/L Chloride (96-108) mmol/L Carbon Dioxide (22-29) mmol/L Anion Gap (12-20) BUN (9-16) mg/dL Creatinine (0.5-1.4) mg/dL Estim Creat Clear Calc Estimated GFR Random Glucose (60-115) mg/dL Calcium (8.4-10.2) mg/dL Troponin I High Sens 5.2 (<3.5-35.0) ng/L Independent Interpretation I performed an independent interpretation of an: EKG and Plain X-Ray Interpretation: I performed an independent interpretation of patient's EKG and read as normal sinus rhythm with a ventricular rate of 70, normal VA interval, normal QTC interval. No ST elevation or depression. I performed an independent interpretation of patient's chest x-ray and agree with radiologist reading. Radiology Impression Discussion of test interpretation with radiology: I have reviewed the radiologist's reading. Radiologist Impression: [place] [id number] XRay Report Signed Patient: Anurag Roberson MR#: [id number] : 1980 Acct:[id number] Age/Sex: 42 / M ADM Date: 04/24/22 Loc: .ED Attending Dr: Ordering Physician: Generic ED Physician Date of Service: 04/24/22 Procedure(s): XR chest 2V Accession Number(s): [id number] cc: Generic ED Physician~ EXAMINATION: XR CHEST CLINICAL INFORMATION: Chest pain COMPARISON: 06/21/2021. TECHNIQUE: 2 views of the chest were obtained. FINDINGS: No significant abnormality is noted involving the heart, lungs, mediastinum, bony thorax or soft tissues. XR/XR chest 2V IMPRESSION: Unremarkable examination. 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 It is critical that you follow-up with your primary care in regards to today's visit. Please return for any worsening or change in symptoms Prescriptions: No Action albuterol sulfate [ProAir HFA] 90 mcg/actuation HFA aerosol inhaler 2 puff PO Q6H PRN (Reason: bronchospasm) Qty: 18 8RF Referrals: Crow Omer MD [Primary Care Provider] - 5 days Stand Alone Forms: Work/School Release Interventions: ED Discharge Assessment Last Done: 04/24/22 16:48 Discharge Date/Time: 04/24/22 16:49
[2022-04-24 15:52] VITALS: BP 143/97; PULSE 61; RESP 19; O2SAT 98
[2022-04-24 16:07] LABS: D Dimer High Sensitivity 175 NG/ML
[2022-04-24 16:25] LABS: Troponin-I High Sensitivity 5.2 ng/L (<3.5-35.0)
[2022-04-24 16:49] VITALS: BP 134/78; PULSE 68; RESP 18; O2SAT 98
== END 2022-04-24 16:49 | disposition home or self-care (01) ==
PROVIDERS: Nurse Practitioner Family; Emergency Provider Emergency Medicine; PCP Internal Medicine
DX: R07.9 Chest pain, unspecified (principal)
CPT/HCPCS: 36415; 71046; 80048; 84484; 85025; 85379; 93005; 99283; 99284

== ENCOUNTER 2022-06-17 15:41 | Emergency (ER) | payer OTHER, SELFPAY ==
[2022-06-17 16:08] VITALS: PULSE 89; RESP 18; TEMP 36.7; O2SAT 98; BMI 31.1
--- NOTE | 2022-06-17 16:26 | ED.EXTPRO ---
HPI - Extremity Problem General Chief complaint: Extremity Problem Stated complaint: rash and bump between toes Time Seen by Provider: 06/17/22 16:26 Source: patient and RN notes reviewed Mode of arrival: ambulatory Limitations: no limitations History of Present Illness HPI Narrative: This is a 42-year-old male presenting to the emergency department with complaints of burning rash in between his toes on his BL feet for the last week. 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 Patient states that he tried OTC lotrimin cream without any relief. He denies any fevers or chills. No numbness or tingling. Denies hx of similar symptoms in the past. No other complaints or concerns at this time. Onset (ago): week(s) Pain Consistency: constant Quality: burning Radiation: none Relieving factors: nothing Exacerbating factors: nothing Associated symptoms: denies other symptoms Related Data Previous Rx's Medication Instructions Recorded albuterol sulfate 90 mcg/actuation 2 puff PO Q6H PRN bronchospasm #18 02/02/22 aerosol inhaler (ProAir HFA) grams ketoconazole 2 % topical cream 1 appl topical BID #30 grams 06/17/22 Allergies Allergy/AdvReac Type Severity Reaction Status Date / Time codeine Allergy Severe RASH Verified 04/04/21 08:59 [From TYLENOL-CODEINE #3] oxycodone Allergy Unknown Nausea Verified 04/04/21 08:59 Review of Systems Review of Systems: Yes all other systems are reviewed and are negative PMFSH Past Medical History Attestation statement: The following information was validated with the patient. Medical History Acute sinus infection Asthma Obesity Physical exam Surgical History History of appendectomy History of hernia repair Family History Family History Father No problems noted. Mother No problems noted. Social History Social History Housing: Apartment Alcohol intake: never Patient Tobacco Use Status: Never used Tobacco Tobacco use type: Cigarette e-Cigarette/Vaping Use: Never Used Second Hand Smoke Exposure: No Advance Directives: No Advance Directives Information Provided: No service: No Current occupational status: unemployed Cognitive needs: No Hearing needs: No Vision needs: No Physical Exam Vital Signs: Vital Signs: Last Vital Signs Temp 98.1 F 06/17/22 16:08 Pulse 89 06/17/22 16:08 Resp 18 06/17/22 16:08 Pulse Ox 98 06/17/22 16:08 O2 Del Method Room Air 06/17/22 16:08 BMI result Body Mass Index 31.1 General: Awake, alert, and oriented X3. No acute distress. HEENT: Normal inspection CVS: Normal heart rate and rhythm. Pulses normal. Respiratory: No respiratory distress Skin: Warm, dry. Cracked, scaly, plaques noted to the skin between patient's toes. No erythema or edema or warmth. No drainage. Distal sensation and circulation intact. Extremities: Normal inspection. Neuro: Oriented X 3. No motor deficit. No sensory deficit. Medical Decision Making Medical Decision Making [facility] Narrative: This is a 40-year-old male, past medical history of asthma who presents emergency department today for rash between his toes for the last week. Patient tried [id number] Lotrimin cream any relief. 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 Patient's symptoms consistent with tinea pedis. No signs of underlying skin infection. Will treat with ketoconazole. Patient advised to keep feet clean and dry. Advised follow-up with his primary care physician and encouraged to return with any new or worsening symptoms. Patient understands and agrees with plan. Differential Diagnosis Differential Diagnoses: The differential diagnosis associated with the presentation includes Tinea pedis, cellulitis, contact dermatitis, folliculitis Discharge Plan Discharge Clinical Impression: Athlete's foot Patient Disposition: Home, Self-Care Instructions: Athlete's Foot (ED) Additional Instructions: Keep your feet clean and dry. Change her socks frequently as moisture will make this condition worse. Use ketoconazole cream as directed. Follow-up with her primary care physician. If any new or worsening symptoms occur, please return for re-evaluation. Prescriptions: New ketoconazole 2 % cream 1 appl topical BID Qty: 30 0RF No Action albuterol sulfate [ProAir HFA] 90 mcg/actuation HFA aerosol inhaler 2 puff PO Q6H PRN (Reason: bronchospasm) Qty: 18 8RF Stand Alone Forms: Work/School Release Interventions: ED Discharge Assessment Last Done: 06/17/22 16:41 Discharge Date/Time: 06/17/22 16:41
== END 2022-06-17 16:41 | disposition home or self-care (01) ==
PROVIDERS: Emergency Provider Emergency Medicine; PCP Internal Medicine
DX: B35.3 Tinea pedis (principal); R21 Rash and other nonspecific skin eruption; Z79.899 Other long term (current) drug therapy
CPT/HCPCS: 99282; 99283

== ENCOUNTER 2022-07-18 21:47 | Emergency (ER) | payer OTHER, SELFPAY ==
--- NOTE | ~2022-07-18 | XR_ITS ---
X-RAY RIGHT ANKLE X-RAY RIGHT FOOT CLINICAL HISTORY: Injury, pain. COMPARISON: Radiograph of the right foot 10/01/2018. TECHNIQUE: 2 views of the right ankle and 3 views of the right foot. FINDINGS: No acute fractures or malalignment. Asymmetric soft tissue thickening along the anterior surface of the distal calf best seen on the lateral view the x-ray of the foot. No unexpected radiopaque foreign bodies. Mild multifocal degenerative osteoarthritis. XR/XR ankle RT 2V IMPRESSION: 1. No acute fractures or malalignment. 2. Asymmetric soft tissue thickening along the anterior surface of the distal calf. Correlate with physical examination.
--- NOTE | ~2022-07-18 | XR_ITS ---
X-RAY RIGHT ANKLE X-RAY RIGHT FOOT CLINICAL HISTORY: Injury, pain. COMPARISON: Radiograph of the right foot 10/01/2018. TECHNIQUE: 2 views of the right ankle and 3 views of the right foot. FINDINGS: No acute fractures or malalignment. Asymmetric soft tissue thickening along the anterior surface of the distal calf best seen on the lateral view the x-ray of the foot. No unexpected radiopaque foreign bodies. Mild multifocal degenerative osteoarthritis. XR/XR foot RT 2V IMPRESSION: 1. No acute fractures or malalignment. 2. Asymmetric soft tissue thickening along the anterior surface of the distal calf. Correlate with physical examination.
[2022-07-18 22:01] VITALS: BP 133/78; PULSE 87; RESP 18; TEMP 36.2; O2SAT 99; BMI 28.5
--- NOTE | 2022-07-19 02:06 | ED_ITS ---
HPI - General Adult General Chief complaint: Extremity Injury, Lower Stated complaint: work accident, fell right foot Time Seen by Provider: 07/19/22 01:00 Source: patient Mode of arrival: ambulatory Limitations: no limitations History of Present Illness HPI narrative: 42 yold male presents to the ED right ankle/foot pain after oil drum fell on her lower leg and foot. patient denies falling to the ground or loss of conscisouness. patient states no other physical complaints. Related Data Previous Rx's Medication Instructions Recorded albuterol sulfate 90 mcg/actuation 2 puff PO Q6H PRN bronchospasm #18 02/02/22 aerosol inhaler (ProAir HFA) grams ketoconazole 2 % topical cream 1 appl topical BID #30 grams 06/17/22 naproxen 500 mg tablet 500 mg PO BID PRN pain 7 days #14 07/19/22 tabs doxycycline hyclate 100 mg capsule 100 mg PO BID 7 days #14 caps 07/20/22 Allergies Allergy/AdvReac Type Severity Reaction Status Date / Time codeine Allergy Severe RASH Verified 04/04/21 08:59 [From TYLENOL-CODEINE #3] oxycodone Allergy Unknown Nausea Verified 04/04/21 08:59 Review of Systems Review of Systems: RIght ankle/foot pain. Yes all other systems are reviewed and are negative PMFSH Past Medical History Medical History Acute sinus infection Asthma Obesity Physical exam Surgical History History of appendectomy History of hernia repair Family History Family History Father No problems noted. Mother No problems noted. Social History Social History Housing: Apartment Alcohol intake: never Patient Tobacco Use Status: Never used Tobacco Tobacco use type: Cigarette e-Cigarette/Vaping Use: Never Used Second Hand Smoke Exposure: No service: No Current occupational status: unemployed Cognitive needs: No Hearing needs: No Vision needs: No Physical Exam ED Vital Signs: Vital Signs - 24 hr 07/18/22 22:01 Temperature 97.2 F Pulse Rate 87 Respiratory Rate 18 Blood Pressure 133/78 Pulse Oximetry 99 Oxygen Delivery Method Room Air BMI result Body Mass Index 28.5 Const General: cooperative, healthy appearing, comfortable, no acute distress, well developed, alert, awake and Physically active Orientation/consciousness: oriented to person, oriented to place, oriented to time and patient oriented x3 HENHI Head: Yes normal to inspection, Yes No palpable skull fracture present, Yes normocephalic, Yes atraumatic and No abrasion Eyes General: appearance normal, both eyes and all related structures Neck Neck: Yes normal visual inspection, Yes full ROM, Yes no lymphadenopathy, Yes no meningeal signs, Yes trachea midline, Yes supple, No anterior neck swelling and No tender Chest Chest palpation & inspection: normal inspection of the chest and normal palpation of entire chest wall Resp Effort & Inspection: normal respiratory effort and able to speak in complete sentences Auscultation: clear to auscultation bilaterally Cardio Jugular venous distension: no JVD Heart sounds: S1 normal heart sound present and S2 normal heart sound present GI Inspection: Yes normal to inspection and No abdominal wall ecchymosis Palpation (GI): Soft to palpation, not firm, nontender, no guarding and not rigid General: No CVA tenderness and Yes no CVA tenderness Back/Spine/Pelvis Back: no CVA tenderness, No CVA tenderness and No back tenderness Skin General skin exam: no rashes or lesions noted and elasticity normal Neuro General: oriented to person, oriented to place, oriented to time, patient oriented x3, gait normal, tone normal, moves all extremities, Normal light touch and pain sensation, no meningeal signs, no focal motor deficits and CN's II-XI intact bilaterally Extrem General: Yes normal to inspection and Yes full ROM Upper/lower leg/hip images: 1. abrasion. Negative for crepitus, ecchymosis, or deformity. Motor/neuro /vascular exam intact. Negative for pus drainage or foul odor. Psych Appearance: grossly normal, well kempt and not disheveled Course Course Course Narrative: Patient with right ankle/foot pain after oil drum fell on ankle/foot Medications Administered Discontinued Medications Generic Name Dose Route Start Last Admin Trade Name Freq PRN Reason Stop Dose Admin Diphtheria/Tetanus/Acell Pertussis 0.5 ml 07/19/22 02:01 07/19/22 02:07 Diphth,Pertus(Acell),Tet Adult 0.5 Ml Syringe IM 07/19/22 02:02 0.5 ml .ONCE ONE Administration Medical Decision Making Medical Decision Making MDM Narrative: 42 yold male preesnts to the ED right ankle/foot discomfort after oil drum on foot/ankle. Patient denies hitting head or loss of consciousness. Patient given tetanus. Wound clean. X-ray negative for fractures. Patient informed to follow-up with [facility]. Differential Diagnosis Differential Diagnoses: The differential diagnosis associated with the presentation includes (Ankle fracture/Dislocation, foot fracture/diloscation. ) Independent Interpretation I performed an independent interpretation of an: Plain X-Ray Radiology Impression Discussion of test interpretation with radiology: I have reviewed the radi ologist's reading. Prescription Management I considered prescription management with: Pain Medication (naproxen) Discharge Plan Discharge Clinical Impression: Ankle sprain and strain, Abrasion Patient Disposition: Home, Self-Care Instructions: Ankle Sprain (ED), Abrasion (ED), R.I.C.E. Treatment (ED) Additional Instructions: Return to the ED for any swelling, redness, pus drainage, foul odor, bluish/black discoloration, numbness/tingling, worse pain, or any other concerning symptoms. Please follow up wiht [facility]. Prescriptions: New naproxen 500 mg tablet 500 mg PO BID PRN (Reason: pain) 7 Days Qty: 14 0RF No Action albuterol sulfate [ProAir HFA] 90 mcg/actuation HFA aerosol inhaler 2 puff PO Q6H PRN (Reason: bronchospasm) Qty: 18 8RF ketoconazole 2 % cream 1 appl topical BID Qty: 30 0RF doxycycline hyclate 100 mg capsule 100 mg PO BID 7 Days Qty: 14 0RF Referrals: [facility] [Provider Group] (Right ankle sprain/abrasion) Stand Alone Forms: Work/School Release Interventions: ED Discharge Assessment Last Done: 07/19/22 02:35 Discharge Date/Time: 07/19/22 02:35 Print Language: Venezuelan
[2022-07-19] MEDS: Diphth,Pertus(ACell),Tet Adult 0.5 ML SYRINGE IM (02:07)
== END 2022-07-19 02:35 | disposition home or self-care (01) ==
PROVIDERS: Emergency Provider Internal Medicine
DX: S93.401A Sprain of unspecified ligament of right ankle, initial encounter (principal); S96.911A Strain of unspecified muscle and tendon at ankle and foot level, right foot, initial encounter; S90.811A Abrasion, right foot, initial encounter; W20.8XXA Other cause of strike by thrown, projected or falling object, initial encounter; Y93.89 Activity, other specified; Y92.513 Shop (commercial) as the place of occurrence of the external cause; Y99.0 Civilian activity done for income or pay
CPT/HCPCS: 73600; 73620; 90471; 90715; 99282; 99284

== ENCOUNTER → 2022-07-20 08:16 | Outpatient (BNVA) | payer OTHER, SELFPAY | PROVIDERS: Visit Provider Physician Assistant Medical | DX: S90.01XA Contusion of right ankle, initial encounter (principal); W20.8XXA Other cause of strike by thrown, projected or falling object, initial encounter | CPT/HCPCS: 99203 ==

== ENCOUNTER → 2022-07-24 13:23 | Outpatient (BNVA) | payer OTHER, SELFPAY | PROVIDERS: Visit Provider Physician Assistant Medical | DX: S90.01XA Contusion of right ankle, initial encounter (principal); W20.8XXA Other cause of strike by thrown, projected or falling object, initial encounter | CPT/HCPCS: 99213 ==

== ENCOUNTER → 2022-07-27 10:53 | Outpatient (BNVA) | payer OTHER, SELFPAY | PROVIDERS: Visit Provider Physician Assistant Medical | DX: S90.01XD Contusion of right ankle, subsequent encounter (principal); W20.8XXD Other cause of strike by thrown, projected or falling object, subsequent encounter | CPT/HCPCS: 99213 ==

== ENCOUNTER 2023-01-01 10:59 | Emergency (ER) | payer OTHER, SELFPAY ==
--- NOTE | 2023-01-01 | ECG_ITS ---
Test Reason : l sided chest pain Blood Pressure : / mmHG Vent. Rate : 082 BPM Atrial Rate : 082 BPM P-R Int : 160 ms QRS Dur : 078 ms QT Int : 366 ms P-R-T Axes : 017 048 038 degrees QTc Int : 427 ms Normal sinus rhythm Normal ECG When compared with ECG of 24-APR-2022 08:42, No significant change was found Referred By: Generic ED Physician Electronically Signed By:IZAIAH YANES MD
--- NOTE | ~2023-01-01 | XR_ITS ---
EXAMINATION: XR CHEST CLINICAL INFORMATION: Chest pain. Shortness of breath. COMPARISON: Chest radiograph dated 04/24/2022. TECHNIQUE: 2 views of the chest were obtained. FINDINGS: The lungs are clear. The cardiomediastinal silhouette is normal in size. There is no pleural effusion or pneumothorax. No acute osseous abnormality. XR/XR chest 2V IMPRESSION: No acute cardiopulmonary findings.
--- NOTE | 2023-01-01 11:28 | ED_ITS ---
HPI - General Adult General Chief complaint: Chest Pain Stated complaint: R side chest pain when breathing Time Seen by Provider: 01/01/23 14:29 Source: patient Mode of arrival: ambulatory Limitations: no limitations History of Present Illness HPI narrative: Patient is a 42 year old assigned male at with a history of asthma presenting to the emergency department today with left sided chest pain. Patient states that over the last 3 days she has had chest pain with inspiration and he is out of his asthma pump at home. Patient denies any dizziness, lightheadedness, abdominal pain, nausea, vomiting, fever, chills, blurry vision, double vision, loss of vision, difficulty breathing, shortness of breath, back pain, night sweats, pain with urination, increased urinary frequency, increased urinary urgency, blood in his urine or stool, syncope or a near syncopal episode, recent trauma or falls, bowel incontinence, bladder incontinence, bowel retention, bladder retention, or any other complaints at this time. Onset (ago): day(s) Location: chest Severity: mild Severity scale (1-10): 3 Quality: aching Pain Consistency: intermittent Relieving factors: none Exacerbating factors: other (inspiration) Associated symptoms: denies other symptoms Treatments prior to arrival: none Related Data Previous Rx's Medication Instructions Recorded albuterol sulfate 90 mcg/actuation 2 puff PO Q6H PRN bronchospasm #18 02/02/22 aerosol inhaler (ProAir HFA) grams ketoconazole 2 % topical cream 1 appl topical BID #30 grams 06/17/22 naproxen 500 mg tablet 500 mg PO BID PRN pain 7 days #14 07/19/22 tabs doxycycline hyclate 100 mg capsule 100 mg PO BID 7 days #14 caps 07/20/22 albuterol sulfate 90 mcg/actuation 2 puff inhalation Q6H PRN 01/01/23 aerosol inhaler shortness of breath or wheezing #8.5 grams naproxen 500 mg tablet 500 mg PO BID 7 days #14 tabs 01/01/23 Allergies Allergy/AdvReac Type Severity Reaction Status Date / Time codeine Allergy Severe RASH Verified 04/04/21 08:59 [From TYLENOL-CODEINE #3] oxycodone Allergy Unknown Nausea Verified 04/04/21 08:59 Review of Systems 2 Constitutional: Constitutional: Reports no additional constitutional complaints, Denies chills, Denies fever(s) and Denies night sweats Eyes: Eyes: Reports no additional eye complaints, Denies blurry vision, Denies change in vision, Denies diplopia, Denies eye discharge, Denies loss of vision and Denies eye pain ENT: Denies dizziness Cardiovascular: Cardiovascular: Reports no additional cardiovascular complaints, Reports chest pain, Denies lightheadedness, Denies Loss of Consciousness and Denies dyspnea Respiratory: Respiratory: Reports no additional respiratory complaints and Denies dyspnea Gastrointestinal: Gastrointestinal: Reports no additional gastrointestinal complaints, Denies abdominal pain, Denies melena, Denies hematochezia, Denies change in bowel habits and Denies change in stool character Genitourinary: Genitourinary: Reports no additional male genitourinary complaints, Denies hematuria, Denies oliguria, Denies difficulty urinating, Denies dysuria, Denies urinary frequency, Denies urinary hesitancy, Denies urinary incontinence and Denies urinary urgency Musculoskeletal: Musculoskeletal: Reports no additional musculoskeletal complaints, Denies numbness and Denies tingling Neurologic: Denies dizziness, Denies loss of vision, Denies numbness and Denies tingling Psychiatric: Psychiatric: Reports no additional psychiatric complaints Endocrine: Endocrine: Reports no additional endocrine complaints Hematologic/Lymphatic: Hematologic/Lymphatic: Reports no additional hematologic/lymphatic complaints Allergic/Immunologic: Allergic/Immunologic: Reports no additional allergic/immunologic complaints [facility] Past Medical History Attestation statement: The following information was validated with the patient. Source: old records reviewed and nursing notes reviewed Medical History Acute sinus infection Obesity Asthma Physical exam Surgical History History of appendectomy History of hernia repair Family History Family History Father No problems noted. Mother No problems noted. Social History Social History Housing: Apartment Alcohol intake: never Patient Tobacco Use Status: Never used Tobacco Tobacco use type: Cigarette e-Cigarette/Vaping Use: Never Used Second Hand Smoke Exposure: No Advance Directives: No Advance Directives Information Provided: Yes service: No Current occupational status: unemployed Cognitive needs: No Hearing needs: No Vision needs: No Physical Exam ED Vital Signs: Vital Signs - 24 hr 01/01/23 11:29 Temperature 98.5 F Pulse Rate 74 Respiratory Rate 18 Blood Pressure 126/86 Pulse Oximetry 98 Oxygen Delivery Method Room Air BMI result Body Mass Index 29.8 Const General: cooperative, no acute distress, alert and awake Nutritional Appearance: well nourished Orientation/consciousness: patient oriented x3 Limitations: no limitations HENMT Head: Yes normal to inspection and Yes atraumatic Ears: hearing grossly normal bilaterally and external ears normal General nose exam: Normal external nose present, no nasal discharge noted and no epistaxis Face and sinus: Yes normal facial exam, No abrasion and No laceration Mouth: Normal oral and palatal mucosa present, no drooling and no muffled voice Eyes General: appearance normal, both eyes and all related structures Periorbital: periorbital findings normal Eyelids: Yes eyelids normal Conjunctivae: conjunctivae normal Pupils: Equal, round and reactive pupils present EOM: EOMs intact bilaterally Neck Neck: Yes normal visual inspection, Yes full ROM and Yes no lymphadenopathy Chest Chest palpation & inspection: normal inspection of the chest Resp Effort & Inspection: normal respiratory effort and able to speak in complete sentences GI Inspection: Yes normal to inspection Neuro General: patient oriented x3 and moves all extremities Cranial nerves: Yes Equal, round and reactive pupils present Cognition (Neuro): normal cognition Motor exam (neuro): 5/5 motor strength present throughout Sensory Exam: Normal double simultaneous stimulation for sensation Coordination: [id number] test normal Extrem General: Yes normal to inspection, Yes full ROM and Yes capillary refill normal Psych Appearance: grossly normal Mental Status: mental status grossly normal Affect: normal affect Attitude: cooperative Thought process: Normal thought process present Thought content: Normal thought content present Insight: Good insight present (Psych) Course Course Course Narrative: RME performed by Susi Dao PA-C. Patient is a 42 year old assigned male at presenting to the emergency department with shortness of breath. Labs, imaging, and swabs ordered. Patient placed back in the waiting room pending room availability and results. Medical Decision Making Medical Decision Making MDM Narrative: Patient is a 42 year old assigned male at with a history of asthma presenting to the emergency department today with chest pain upon inspiration. Patient's physical exam was unremarkable. Patient's blood work was unremarkable. Patient's EKG was unremarkable. Patient's chest x-ray showed no acute process. I explained my physical exam findings as well as all test results to the patient. I answered all questions asked by the patient. Patient received IM Toradol which he stated helped his symptoms significantly. I stressed the importance of the patient taking his medication as prescribed. I stressed the importance of the patient following up with his primary care provider. I stressed the importance of the patient returning to the emergency department immediately if his symptoms were to worsen or if he were to develop any dizziness, shortness of breath, difficulty breathing, chest pain, blurry vision, loss of vision, nausea, vomiting, abdominal pain, fever, chills, back pain, or any other complaints. Patient verbalized agreement and understanding with this treatment plan and discharge. Differential Diagnosis Differential Diagnoses: The differential diagnosis associated with the presentation includes Chest pain NSTEMI STEMI Costochondritis URI Asthma exacerbation Admission/Observation Consideration of admission/observation: Escalation of care including admission/observation considered Patient would have been admitted to the hospital had his work up had any findings where hospital admission was appropriate and his clinical presentation warranted hospital admission. Lab Data MDM Lab Attestation statement: I reviewed the patient's lab results. My interpretation of these studies and their corresponding values is that they are grossly normal. 01/01/23 11:42 01/01/23 11:42 Labs: Lab Results 01/01/23 01/01/23 Range/Units 11:38 11:42 WBC 7.1 (4.8-10.8) X10*3/uL RBC 5.80 (4.60-5.80) X10*6/uL Hgb 15.5 (14.0-18.0) g/dl Hct 46.8 (42.0-52.0) % MCV 80.7 (80.0-98.0) fL MCH 26.7 L (27.0-33.0) pg MCHC 33.1 (31.0-36.0) g/dl RDW 13.9 (11.0-16.0) % Plt Count 202 (160-400) X10*3/uL MPV 11.3 (9.4-12.4) fL Immature Gran % (Auto) 0.4 (0.0-0.4) % Neut % (Auto) 56.5 (45-73) % Lymph % (Auto) 32.4 (20-40) % Ramsey % (Auto) 7.6 (2-11) % Eos % (Auto) 2.5 (0-4) % Baso % (Auto) 0.6 (0-2) % Lymph # (Auto) 2.3 (1.2-4.9) X10*3/uL Ramsey # (Auto) 0.5 (0.1-1.2) X10*3/uL Eos # (Auto) 0.2 (0.0-0.4) X10*3/uL Baso # (Auto) 0.0 (0.0-0.2) X10*3/uL Abs Immat Gran (auto) 0.03 (0.00-0.03) X10*3/uL Absolute Neuts (auto) 4.0 (2.0-8.3) x10*3/uL Absolute Nucleated RBC 0.000 (0.0-0.012) X10*3/uL Nucleated RBC % (auto) 0.0 (0.0-0.2) /100WBC PT 12.1 (11.1-13.3) SEC INR 1.0 (0.9-1.1) APTT 32.4 (26.0-36.4) SEC Sodium 141 (135-145) mmol/L Potassium 3.9 (3.3-5.1) mmol/L Chloride 109 H (96-108) mmol/L Carbon Dioxide 26 (22-29) mmol/L Anion Gap 10 L (12-20) BUN 16 (9-16) mg/dL Creatinine 0.78 (0.5-1.4) mg/dL Estim Creat Clear Calc 150.9 Estimated GFR > 60 Random Glucose 111 (60-115) mg/dL Calcium 8.8 (8.4-10.2) mg/dL Magnesium 2.1 (1.6-2.6) mg/dL Total Bilirubin 1.7 H (0.0-1.0) mg/dL AST 12 (5-37) U/L ALT 9 (0-40) U/L Alkaline Phosphatase 56 (39-117) U/L Troponin I High Sens 4.2 (<3.5-35.0) ng/L Total Protein 6.7 (6.5-8.0) g/dL Albumin 4.1 (3.5-5.0) g/dL Influenza Type A (PCR) NEGATIVE (Negative) Influenza Type B (PCR) NEGATIVE (Negative) RSV RNA Qual (PCR) NEGATIVE (Negative) SARS-CoV-2 RNA (RT-PCR) NEGATIVE (Negative) Independent Interpretation I performed an independent interpretation of an: EKG and Plain X-Ray Interpretation: My interpretation is in agreement with the radiologist's impression of this imaging study. - EXAMINATION: XR CHEST CLINICAL INFORMATION: Chest pain. Shortness of breath. COMPARISON: Chest radiograph dated 04/24/2022. TECHNIQUE: 2 views of the chest were obtained. FINDINGS: The lungs are clear. The cardiomediastinal silhouette is normal in size. There is no pleural effusion or pneumothorax. No acute osseous abnormality. XR/XR chest 2V IMPRESSION: No acute cardiopulmonary findings. Dictated By: Paul Elizondo MD Signed By: Electronically signed by Paul Elizondo MD 01/01/23 1249 - Vent. Rate: 082 BPM Atrial Rate: 082 BPM P-R Int: 160 ms QRS Dur: 078 ms QT Int: 366 ms P-R-T Axes: 017 048 038 degrees QTc Int: 427 ms Normal sinus rhythm Normal ECG When compared with ECG of 24-APR-2022 08:42, No significant change was found Electronically Signed By:IZAIAH YANES MD Dictated By: Mahad Yanes MD Signed By: Electronically signed by Mahad Yanes MD 01/01/23 3849 Radiology Impression Discussion of test interpretation with radiology: I have reviewed the radiologist's reading. Prescription Management I considered prescription management with: Pain Medication (patient prescribed pain medication.) Scores Heart Score History: -0- slightly suspicious ECG: -0- normal Age: -0- < or = 45 Risk factory: -0- no risk factors known Troponin: -0- < or = normal limit Score: 0 Risk: 1.7% Additional Scores PERC Score: Score: 0 Discharge Plan Discharge Clinical Impression: Acute costochondritis Patient Disposition: Home, Self-Care Instructions: Costochondritis (ED) Additional Instructions: Follow up with your primary care provider. Return to the emergency department immediately if your symptoms worsen or if you develop any dizziness, shortness of breath, difficulty breathing, chest pain, blurry vision, loss of vision, nausea, vomiting, abdominal pain, fever, chills, back pain, or any other complaints. Prescriptions: New albuterol sulfate 90 mcg/actuation HFA aerosol inhaler 2 puff inhalation Q6H PRN (Reason: shortness of breath or wheezing) Qty: 8.5 0RF naproxen 500 mg tablet 500 mg PO BID 7 Days Qty: 14 0RF No Action albuterol sulfate [ProAir HFA] 90 mcg/actuation HFA aerosol inhaler 2 puff PO Q6H PRN (Reason: bronchospasm) Qty: 18 8RF naproxen 500 mg tablet 500 mg PO BID PRN (Reason: pain) 7 Days Qty: 14 0RF ketoconazole 2 % cream 1 appl topical BID Qty: 30 0RF doxycycline hyclate 100 mg capsule 100 mg PO BID 7 Days Qty: 14 0RF Referrals: Crow Omer MD [Primary Care Provider] - Stand Alone Forms: Work/School Release Print Language: Albanian
[2023-01-01 11:29] VITALS: BP 126/86; PULSE 74; RESP 18; TEMP 36.9; O2SAT 98; BMI 29.8
[2023-01-01 11:46] LABS: MANUAL DIFF FLAG NO
[2023-01-01 11:57] LABS: Prothrombin Time 12.1 SEC (11.1-13.3)
[2023-01-01 11:59] LABS: Partial Thromboplastin Time 32.4 SEC (26.0-36.4)
[2023-01-01 12:02] LABS: Basophils Percent Auto 0.6 % (0-2); Eosinophils Absolute Auto 0.2 X10*3/uL (0.0-0.4); Eosinophils Percent Auto 2.5 % (0-4); Hematocrit 46.8 % (42.0-52.0); Hemoglobin 15.5 g/dl (14.0-18.0); Imm Gran Abs Auto 0.03 X10*3/uL (0.00-0.03); Imm Gran Pct Auto 0.4 % (0.0-0.4); Lymphocytes Absolute Auto 2.3 X10*3/uL (1.2-4.9); Lymphocytes Percent Auto 32.4 % (20-40); Mean Corpuscular HGB Conc 33.1 g/dl (31.0-36.0); Mean Corpuscular Hemoglobin 26.7 pg (27.0-33.0); Mean Corpuscular Volume 80.7 fL (80.0-98.0); Mean Platelet Volume 11.3 fL (9.4-12.4); Monocytes Absolute Auto 0.5 X10*3/uL (0.1-1.2); Monocytes Percent Auto 7.6 % (2-11); Neutrophils Percent Auto 56.5 % (45-73); Platelet Count 202 X10*3/uL (160-400); Red Cell Distribution Width 13.9 % (11.0-16.0); White Blood Count 7.1 X10*3/uL (4.8-10.8)
[2023-01-01 12:04] LABS: Alanine Aminotransferase 9 U/L (0-40); Albumin Level 4.1 g/dL (3.5-5.0); Alkaline Phosphatase 56 U/L (39-117); Anion Gap 10 (12-20); Aspartate Amino Transferase 12 U/L (5-37); Bilirubin Total 1.7 mg/dL (0.0-1.0); Blood Urea Nitrogen 16 mg/dL (9-16); Calcium 8.8 mg/dL (8.4-10.2); Carbon Dioxide 26 mmol/L (22-29); Chloride 109 mmol/L (96-108); Creatinine Clr Calc Pharmacy 150.9; Estimated Glomerular Filt Rate > 60; Glucose Random 111 mg/dL (60-115); Magnesium 2.1 mg/dL (1.6-2.6); Potassium 3.9 mmol/L (3.3-5.1); Sodium 141 mmol/L (135-145); Total Protein 6.7 g/dL (6.5-8.0)
[2023-01-01 12:10] LABS: Troponin-I High Sensitivity 4.2 ng/L (<3.5-35.0)
[2023-01-01 12:33] LABS: Influenza A PCR NEGATIVE (Negative); Influenza B PCR NEGATIVE (Negative); Resp Syncy Virus RNA Qual PCR NEGATIVE (Negative); SARS COV2 PCR INHOUSE NEGATIVE (Negative)
[2023-01-01] MEDS: Ketorolac Tromethamine 15 MG/ML VIAL IM (14:38)
== END 2023-01-01 14:42 | disposition home or self-care (01) ==
PROVIDERS: Physician Assistant Medical; Emergency Provider Emergency Medicine; PCP Internal Medicine
DX: R07.9 Chest pain, unspecified (principal); R06.02 Shortness of breath; M94.0 Chondrocostal junction syndrome [Tietze]; Z20.822 Contact with and (suspected) exposure to COVID-19; Z20.828 Contact with and (suspected) exposure to other viral communicable diseases
CPT/HCPCS: 0241U; 36415; 71046; 80053; 83735; 84484; 85025; 85610; 85730; 93005; 96372; 99283; 99284; J1885

== ENCOUNTER 2023-01-02 09:14 | Outpatient (AMB) | payer OTHER, SELFPAY ==
[2023-01-02 09:47] VITALS: BP 122/80; PULSE 78; O2SAT 98; BMI 29.6
--- NOTE | 2023-01-02 09:47 | A.OFFPC_ITS ---
Vital Signs 01/02/23 09:47 Height 6 ft Weight 218 lb BMI 29.6 BP 122/80 Blood Pressure Location Lt brachial Position Sitting Pulse 78 Pulse Source Pulse Oximeter Pulse Oximetry (%) 98 Oxygen Delivery Method Room Air Intake Visit Reasons: ED 01/01 acute costochondritis Special Delivery Messenger Required: No Japanese Interpreter: Not Required per policy Accompanied by: Self / Same As Patient Allergies codeine [From TYLENOL-CODEINE #3] Allergy (Severe, Verified 01/02/23 09:47) RASH oxycodone Allergy (Unknown, Verified 01/02/23 09:47) Nausea Medication List - Last Reconciled 01/03/23 by Crow Omer MD albuterol sulfate 90 mcg/actuation 2 puffs inhalation Q6H PRN albuterol sulfate 90 mcg/actuation (ProAir HFA) 2 puffs PO Q6H PRN naproxen 500 mg PO BID 7 days Tobacco use date assessed: 04/06/22 Dental Screening Dental Screen Date: 01/02/23 Did you have a dental visit in the last 12 months?: Yes Did you have a dental problem in the last 6 months where you did not have access to dental care?: No Was dental information given to patient?: Patient has dentist HPI ED 01/01 acute costochondritis HPI Details went to er with costochondritis due to lifting and needs oow note for a few more days; [facility] Medical History Acute sinus infection Obesity Asthma Physical exam Surgical History History of appendectomy History of hernia repair Family History Father No problems noted. Mother No problems noted. Social History Housing: Apartment Alcohol intake: never Patient Tobacco Use Status: Never used Tobacco Tobacco use type: Cigarette e-Cigarette/Vaping Use: Never Used Second Hand Smoke Exposure: No service: No Current occupational status: unemployed Cognitive needs: No Hearing needs: No Vision needs: No Questionnaire PHQ-9 Over the last 2 weeks, how often have you been bothered by any of the following problems? 1. Little interest or pleasure in doing things: not at all 2. Feeling down, depressed, or hopeless: not at all 3. Trouble falling or staying asleep, or sleeping too much: not at all 4. Feeling tired or having little energy: not at all 5. Poor appetite or overeating: not at all 6. Feeling bad about yourself - or that you are a failure or have let yourself or your family down: not at all 7. Trouble concentrating on things, such as reading the newspaper or watching television: not at all 8. Moving or speaking so slowly that other people could have noticed. Or the opposite - being so fidgety or restless that you have been moving around a lot more than usual: not at all 9. Thoughts that you would be better off or of hurting yourself in some way: not at all Total score: 0 Depression Screening Interpretation: Negative Depression Screening Done: Yes 50754 - PHQ-9 Billing: Yes Source: Developed by Drs. Ruben Odonnell, Shirley Song, Bobby Lopez and colleagues, with an educational david from [employer]. Thrive Questionnaire Date Thrive assessed: 04/06/22 AUDIT C Alcohol Use Questionnaire (AUDIT-C) 1. How often do you have a drink containing alcohol?: Never Total Score: 0 Score Reviewed/Action Taken: Yes ALEENA-7 AMB Questionnaire ALEENA-7 Date ALEENA - 7 assessed: 04/06/22 Source: Developed by Drs. Ruben Odonnell, Bobby Welch and colleagues, with an educational david from [employer]. Review of Systems Const Denies chills, Denies headache(s) and Denies weight loss ENT Denies headache(s) Card Denies syncope, Denies irregular heart rhythm and Denies dyspnea Resp Denies chest congestion, Denies cough and Denies dyspnea GI Denies abdominal pain, Denies change in stool character, Denies nausea and Denies vomiting Musc Denies deformity and Denies joint swelling Neuro Denies syncope and Denies headache(s) Physical exam (Primary Care) Vital Signs: Last Vital Signs Pulse 78 01/02/23 09:47 BP 122/80 01/02/23 09:47 Pulse Ox 98 01/02/23 09:47 Oxygen Delivery Method Room Air 01/02/23 09:47 BMI result Body Mass Index 29.6 Tobacco/Smoking Status: Tobacco use Status Tobacco use date assessed 04/06/22 01/02/23 09:48 Patient Tobacco Use Status Never used Tobacco 01/02/23 09:48 Tobacco use type Cigarette 01/02/23 09:48 e-Cigarette/Vaping Use Never Used 01/02/23 09:48 PHQ-9: PHQ-9 Score PHQ-9: Total score 0 01/02/23 09:48 Depression Screening Interpretation: Negative Thrive Assessment: Date of Thrive Assessment Date Thrive assessed 04/06/22 01/02/23 09:48 Const General: cooperative, comfortable, no acute distress and alert Neck Neck: Yes no lymphadenopathy Thyroid: Thyroid normal Resp Effort & Inspection: normal respiratory effort Auscultation: clear to auscultation bilaterally Percussion: percussion normal Cardio Jugular venous distension: no JVD Palpation: normal PMI Rate: regular rate Rhythm: regular rhythm Heart sounds: S1 normal heart sound present and S2 normal heart sound present GI Inspection: Yes normal to inspection Palpation (GI): No hepatosplenomegaly present Skin General skin exam: no rashes or lesions noted Extrem General: Yes no clubbing, cyanosis or edema Assessment and Plan Assessment & Plan (1) Costochondritis: Code(s): M94.0 - Chondrocostal junction syndrome [Tietze] Plan: conc=servative rx Coding Level of Care Code Est Pt Level 3 (30242) Diagnoses Costochondritis M94.0
== END 2023-01-02 10:08 | disposition home or self-care (01) ==
PROVIDERS: PCP Internal Medicine; Visit Provider Internal Medicine
DX: M94.0 Chondrocostal junction syndrome [Tietze] (principal)
CPT/HCPCS: 99213

== ENCOUNTER 2023-01-22 21:43 | Emergency (ER) | payer OTHER, SELFPAY ==
--- NOTE | ~2023-01-22 | XR_ITS ---
EXAMINATION: XR CHEST CLINICAL INFORMATION: Epigastric pain COMPARISON: 01/01/2023 TECHNIQUE: 2 views of the chest were obtained. FINDINGS: Since the prior study there has developed left midlung atelectasis and a small left pleural. Heart size normal. No evidence of CHF. The right lung is clear. The bony thorax is unremarkable. XR/XR chest 2V IMPRESSION: New left midlung atelectasis and small left pleural effusion.
--- NOTE | ~2023-01-22 | CT_ITS ---
EXAMINATION: CT ANGIOGRAM OF THE CHEST WITH AND WITHOUT CONTRAST (CT PULMONARY ANGIOGRAM FOR PE) CLINICAL INFORMATION: Reason for Exam l sided pain COMPARISON: None available. TECHNIQUE: Prior to contrast administration, noncontrast localization images were obtained. Subsequently, multidetector volumetric imaging was performed from the thoracic inlet to below the diaphragms following the administration of 80 mL Omnipaque 350 intravenous contrast. No contrast reaction reported Sagittal, coronal, and MIP oblique sagittal reformatted images were obtained on the CT workstation, uploaded to PACS, and reviewed. This CT examination was performed using dose optimization techniques as appropriate, variously including the following: *Automated exposure control *Adjustment of mA and/or kV according to patient size (this includes techniques or standardized protocols for targeted exams where dose is matched to indication/reason for exam; i.e. extremities or head) *Use of iterative reconstruction technique Total exam dose-length product 295 mGy-cm FINDINGS: QUALITY OF STUDY/CONTRAST BOLUS: Satisfactory. PULMONARY ARTERIES: No pulmonary emboli. THORACIC AORTA: No aneurysm. LUNG: There is minimal atelectatic change at the left lung base associated with a small left pleural effusion. There is minimal lingular atelectatic change. PLEURA: There is a small left pleural effusion. MEDIASTINUM: Normal heart size. No pericardial effusion. No hilar or mediastinal lymphadenopathy. No evidence of septal bowing or right heart strain. CORONARY ARTERY CALCIFICATION: None visualized on this study. CHEST WALL/AXILLA: No axillary or internal mammary lymphadenopathy. OSSEOUS STRUCTURES: No acute or suspicious osseous abnormality. UPPER ABDOMEN: Unremarkable. No reflux of contrast into the hepatic veins to suggest elevated right heart pressures. CT/CT angio chest PE protocol IMPRESSION: No evidence for pulmonary embolism. Small left pleural effusion with minimal associated atelectasis. VTE: Negative for pulmonary embolism.
--- NOTE | 2023-01-22 22:13 | ED_ITS ---
HPI - General Adult General Chief complaint: Abdominal Pain Stated complaint: upper abd pain Time Seen by Provider: 01/23/23 00:27 Source: patient and old records reviewed Mode of arrival: ambulatory Limitations: no limitations History of Present Illness HPI narrative: 42 yo male hx of asthma seen 01/01 started on inhaler and naproxen - he comes back with recurrent L sided rib pain and now 5am yesterday started with epigastric pain but no n/v/d belching. He notes no acid taste in the mouth feels the pain moved to his epigastric area. He has never had this before. Prior to the left rib pain he denies travel, procedures, URI symptoms. He notes he did have a hard time breathing and it hurt to breathe but he has no hx of blood clots. He notes the pain in his epigastric area does hurt when he breathes. MD complaint: epigastric pain Onset (ago): day(s) (5am yesterday ) Location: chest and abdomen Radiation: non-radiation Severity: moderate Quality: stabbing Pain Consistency: intermittent Relieving factors: none Exacerbating factors: other (inspiration) Associated symptoms: denies other symptoms Treatments prior to arrival: none Related Data Previous Rx's Medication Instructions Recorded albuterol sulfate 90 mcg/actuation 2 puff PO Q6H PRN bronchospasm #18 02/02/22 aerosol inhaler (ProAir HFA) grams albuterol sulfate 90 mcg/actuation 2 puff inhalation Q6H PRN 01/01/23 aerosol inhaler shortness of breath or wheezing #8.5 grams naproxen 500 mg tablet 500 mg PO BID 7 days #14 tabs 01/01/23 famotidine 20 mg tablet (Pepcid) 20 mg PO DAILY abdominal 01/23/23 discomfort #10 tabs prednisone 20 mg tablet 40 mg (2 x 20 mg) PO DAILY 5 days 01/23/23 #10 tabs Allergies Allergy/AdvReac Type Severity Reaction Status Date / Time codeine Allergy Severe RASH Verified 01/02/23 09:47 [From TYLENOL-CODEINE #3] oxycodone Allergy Unknown Nausea Verified 01/02/23 09:47 Review of Systems 2 Review of Systems: Constitutional : No Weight loss, No Fever, No Chills ENT/Mouth : No sore throat, No Rhinorrhea Eyes: No Swelling, No Redness Cardiovascular : No Chest Pain, No SOB, NoEdema, pos rib pain Respiratory : No Cough, No Sputum, No Wheezing Gastrointestinal : no Nausea, no Vomiting, no Diarrhea, positive abdominal Pain, No Hematochezia, No Melena Genitourinary : No Dysuria, No Urinary Frequency, No Hematuria, No Urgency Musculoskeletal : No joint pain, No Myalgias, No Joint Swelling Skin : No Skin Lesions, No rash Neuro : No Weakness, No Numbness, No Dizziness, No Headache Psych : No Anxiety/Panic, No Depression All other systems reviewed and are negative. [facility] Past Medical History Attestation statement: The following information was validated with the patient. Source: old records reviewed Medical History Acute sinus infection Obesity Asthma Physical exam Surgical History History of appendectomy History of hernia repair Family History Family History Father No problems noted. Mother No problems noted. Social History Social History Housing: Apartment Alcohol intake: current Alcohol intake frequency: a few times a month Patient Tobacco Use Status: Never used Tobacco Tobacco use type: Cigarette Smoked in Last 30 Days: No e-Cigarette/Vaping Use: Never Used Second Hand Smoke Exposure: No Use of substances other than those prescribed or required for medical reasons: No Advance Directives: No Advance Directives Information Provided: Yes service: No Current occupational status: unemployed Cognitive needs: No Hearing needs: No Vision needs: No Physical Exam ED Vital Signs: Vital Signs - 24 hr 01/22/23 22:16 Temperature 99.0 F Pulse Rate 85 Respiratory Rate 20 Blood Pressure 119/92 H Pulse Oximetry 96 Oxygen Delivery Method Room Air BMI result Body Mass Index 29.0 Appearance: Alert. Oriented X3. No acute distress. Eyes: Pupils equal, round and reactive to light. ENT: Pharynx normal. Neck: Normal inspection. Neck supple. CVS: Normal heart rate and rhythm. Pulses normal. Respiratory: No respiratory distress. Breath sounds diminished L lower base Abdomen: Soft and mild epigastric ttp no rebound Skin: Skin warm and dry. Normal skin color. Normal skin turgor. Extremities: No lower extremity edema. No calf ttp Neuro: Oriented X 3. No motor deficit. No sensory deficit. Course Course Course Narrative: RME performed by Susi Dao PA-C. Patient is a 42 year old assigned male at presenting to the emergency department with epigastric pain. Labs, imaging, and swabs ordered. Patient placed back in the waiting room pending room availability and results. Medications Administered Discontinued Medications Generic Name Dose Route Start Last Admin Trade Name Dawit PRN Reason Stop Dose Admin Famotidine 20 mg 01/23/23 00:41 01/23/23 01:09 Famotidine/Pf 20 Mg/2 Ml Vial IVPUSH 01/23/23 00:42 20 mg ONCE ONE Administration Iohexol 85 ml 01/23/23 02:05 01/23/23 02:06 Iohexol 350 Mg/Ml 100 Ml Infus..Btl IV 01/23/23 02:06 85 ml ONCE ONE Administration Medical Decision Making Medical Decision Making [facility] Narrative: 42 yo male with PMH of asthma just seen for L sided rib pain now here with c/o epigastric pain and L sided pain at this time has new effusion will obtain basic labs, CTA given effusion - to look for infection/VTE, he has benign abdominal exam but will obtain basic labs. He is not toxic appearing. Could be pancreatitis, gastritis, VTE, will order initial EKG and trop x 1 as pain > 12 hours. Differential Diagnosis Differential Diagnoses: The differential diagnosis associated with the presentation includes gastritis, pancreatis, effusion, pleurisy, VTE Admission/Observation Consideration of admission/observation: Escalation of care including admission/observation considered can be DC home - labs and CT scan stable Lab Data [facility] Lab Attestation statement: I reviewed the patient's lab results. 01/22/23 22:26 01/22/23 22:26 Labs: Lab Results 01/22/23 01/23/23 Range/Units 22:26 01:14 WBC 9.1 (4.8-10.8) X10*3/uL RBC 5.55 (4.60-5.80) X10*6/uL Hgb 14.9 (14.0-18.0) g/dl Hct 44.8 (42.0-52.0) % MCV 80.7 (80.0-98.0) fL MCH 26.8 L (27.0-33.0) pg MCHC 33.3 (31.0-36.0) g/dl RDW 13.2 (11.0-16.0) % Plt Count 267 D (160-400) X10*3/uL MPV 10.9 (9.4-12.4) fL Immature Gran % (Auto) 0.2 (0.0-0.4) % Neut % (Auto) 52.7 (45-73) % Lymph % (Auto) 29.5 (20-40) % [place] % (Auto) 6.8 (2-11) % Eos % (Auto) 9.9 H (0-4) % Baso % (Auto) 0.9 (0-2) % Lymph # (Auto) 2.7 (1.2-4.9) X10*3/uL [place] # (Auto) 0.6 (0.1-1.2) X10*3/uL Eos # (Auto) 0.9 H (0.0-0.4) X10*3/uL Baso # (Auto) 0.1 (0.0-0.2) X10*3/uL Abs Immat Gran (auto) 0.02 (0.00-0.03) X10*3/uL Absolute Neuts (auto) 4.8 (2.0-8.3) x10*3/uL Absolute Nucleated RBC 0.000 (0.0-0.012) X10*3/uL Nucleated RBC % (auto) 0.0 (0.0-0.2) /100WBC PT 12.8 (11.1-13.3) SEC INR 1.1 (0.9-1.1) APTT 33.8 (26.0-36.4) SEC Sodium 143 (135-145) mmol/L Potassium 3.8 (3.3-5.1) mmol/L Chloride 109 H (96-108) mmol/L Carbon Dioxide 24 (22-29) mmol/L Anion Gap 14 (12-20) BUN 15 (9-16) mg/dL Creatinine 0.81 (0.5-1.4) mg/dL Estim Creat Clear Calc 143.4 Estimated GFR > 60 Random Glucose 109 (60-115) mg/dL Calcium 9.3 (8.4-10.2) mg/dL Magnesium 2.2 (1.6-2.6) mg/dL Total Bilirubin 1.1 H (0.0-1.0) mg/dL AST 12 (5-37) U/L ALT 10 (0-40) U/L Alkaline Phosphatase 68 (39-117) U/L Troponin I High Sens 4.1 (<3.5-35.0) ng/L Total Protein 7.1 (6.5-8.0) g/dL Albumin 4.2 (3.5-5.0) g/dL Lipase 17 (8-78) U/L Urine Color DK YELLOW Urine Appearance Clear Urine pH 6.5 (5.0-9.0) Ur Specific [place] 1.025 (1.005-1.025) Urine Protein Negative (Neg-Trace) mg/dL Urine Glucose (UA) Negative (Negative) mg/dL Urine Ketones Negative (Negative) mg/dL Urine Blood Negative (Negative) Urine Nitrite Negative (Negative) Ur Leukocyte Esterase Negative (Negative) Influenza Type A (PCR) NEGATIVE (Negative) Influenza Type B (PCR) NEGATIVE (Negative) RSV RNA Qual (PCR) NEGATIVE (Negative) SARS-CoV-2 RNA (RT-PCR) NEGATIVE (Negative) Independent Interpretation I performed an independent interpretation of an: EKG, Plain X-Ray (L sided pleural effusion) and CT Scan (no PE) Interpretation: Rate: 81 Rhythm: NSR [place]: normal Normal P waves. Normal AFUA. Normal QRS complex. ST T wave : normal no THAD qTC: normal prior studies: no acute ischemia The study has been interpreted contemporaneously by me. . Radiology Impression Discussion of test interpretation with radiology: I have reviewed the radiologist's reading. External Record Review External record reviewed: Inpatient record Prescription Management I considered prescription management with: Other Discharge Plan Discharge Clinical Impression: Pleural effusion Gastritis Qualifiers: Gastritis type: unspecified gastritis Chronicity: acute Gastritis bleeding: w ithout bleeding Qualified Code(s): K29.00 - Acute gastritis without bleeding Patient Disposition: Home, Self-Care Instructions: Pleurisy (ED), Gastritis (ED), Pleural Effusion (ED) Additional Instructions: return for worsening pain, difficulty breathing, inability to eat or drink repeat chest xray in 2 weeks with doctor. avoid motrin/ibuprofen or aleve at this time. Prescriptions: New prednisone 20 mg tablet 40 mg PO DAILY 5 Days Qty: 10 0RF famotidine [Pepcid] 20 mg tablet 20 mg PO DAILY Qty: 10 0RF No Action albuterol sulfate [ProAir HFA] 90 mcg/actuation HFA aerosol inhaler 2 puff PO Q6H PRN (Reason: bronchospasm) Qty: 18 8RF albuterol sulfate 90 mcg/actuation HFA aerosol inhaler 2 puff inhalation Q6H PRN (Reason: shortness of breath or wheezing) Qty: 8.5 0RF naproxen 500 mg tablet 500 mg PO BID 7 Days Qty: 14 0RF Stand Alone Forms: Work/School Release
--- NOTE | 2023-01-22 22:13 | ECG_ITS ---
Test Reason : abdominal pain Blood Pressure : / mmHG Vent. Rate : 081 BPM Atrial Rate : 081 BPM P-R Int : 156 ms QRS Dur : 090 ms QT Int : 372 ms P-R-T Axes : 011 040 040 degrees QTc Int : 432 ms Normal sinus rhythm Normal ECG When compared with ECG of 01-JAN-2023 11:10, No significant change was found Referred By: Susi Dao Electronically Signed By:RAMESH PIERCE
[2023-01-22 22:16] VITALS: BP 119/92; PULSE 85; RESP 20; TEMP 37.2; O2SAT 96; BMI 29.0
[2023-01-22 22:36] LABS: MANUAL DIFF FLAG NO
[2023-01-22 22:38] LABS: Basophils Absolute Auto 0.1 X10*3/uL (0.0-0.2); Basophils Percent Auto 0.9 % (0-2); Eosinophils Absolute Auto 0.9 X10*3/uL (0.0-0.4); Eosinophils Percent Auto 9.9 % (0-4); Hematocrit 44.8 % (42.0-52.0); Hemoglobin 14.9 g/dl (14.0-18.0); Imm Gran Abs Auto 0.02 X10*3/uL (0.00-0.03); Imm Gran Pct Auto 0.2 % (0.0-0.4); Lymphocytes Absolute Auto 2.7 X10*3/uL (1.2-4.9); Lymphocytes Percent Auto 29.5 % (20-40); Mean Corpuscular HGB Conc 33.3 g/dl (31.0-36.0); Mean Corpuscular Hemoglobin 26.8 pg (27.0-33.0); Mean Corpuscular Volume 80.7 fL (80.0-98.0); Mean Platelet Volume 10.9 fL (9.4-12.4); Monocytes Absolute Auto 0.6 X10*3/uL (0.1-1.2); Monocytes Percent Auto 6.8 % (2-11); Neutrophils Absolute Auto 4.8 x10*3/uL (2.0-8.3); Neutrophils Percent Auto 52.7 % (45-73); Platelet Count 267 X10*3/uL (160-400); Red Blood Count 5.55 X10*6/uL (4.60-5.80); Red Cell Distribution Width 13.2 % (11.0-16.0); White Blood Count 9.1 X10*3/uL (4.8-10.8)
[2023-01-22 22:45] LABS: INTERNATIONAL NORM RATIO 1.1 (0.9-1.1); Prothrombin Time 12.8 SEC (11.1-13.3)
[2023-01-22 22:48] LABS: Partial Thromboplastin Time 33.8 SEC (26.0-36.4)
[2023-01-22 22:51] LABS: Alanine Aminotransferase 10 U/L (0-40); Albumin Level 4.2 g/dL (3.5-5.0); Alkaline Phosphatase 68 U/L (39-117); Anion Gap 14 (12-20); Aspartate Amino Transferase 12 U/L (5-37); Bilirubin Total 1.1 mg/dL (0.0-1.0); Blood Urea Nitrogen 15 mg/dL (9-16); Calcium 9.3 mg/dL (8.4-10.2); Carbon Dioxide 24 mmol/L (22-29); Chloride 109 mmol/L (96-108); Creatinine Clr Calc Pharmacy 143.4; Estimated Glomerular Filt Rate > 60; Glucose Random 109 mg/dL (60-115); Magnesium 2.2 mg/dL (1.6-2.6); Potassium 3.8 mmol/L (3.3-5.1); Sodium 143 mmol/L (135-145); Total Protein 7.1 g/dL (6.5-8.0)
[2023-01-22 22:58] LABS: Troponin-I High Sensitivity 4.1 ng/L (<3.5-35.0)
[2023-01-22 23:13] LABS: Influenza A PCR NEGATIVE (Negative); Influenza B PCR NEGATIVE (Negative); Resp Syncy Virus RNA Qual PCR NEGATIVE (Negative); SARS COV2 PCR INHOUSE NEGATIVE (Negative)
[2023-01-23 01:07] LABS: Lipase 17 U/L (8-78)
[2023-01-23] MEDS: Famotidine/PF 20 MG/2 ML VIAL IVPUSH (01:09)
[2023-01-23 01:28] LABS: Appearance Urine Clear; Color Urine DK YELLOW; Glucose Urine UA Negative (Negative); Leukocyte Esterase Urine Negative (Negative); Nitrite Urine Negative (Negative); PH 6.5 (5.0-9.0); Specific Gravity - Urine 1.025 (1.005-1.025); Urine Blood Negative (Negative); Urine Ketones Negative (Negative); Urine Protein Negative (Neg-Trace)
--- NOTE | 2023-01-23 01:37 | PC.NURSE ---
this rn assumed care of pt. pt reporting epigastric pain since sunday that feels like burning sensation. pt reports being treated with naproxen recently for a similar pain in his lower left quadrant. pt denies n/v/d. pt abdomen soft but tender to touch in the upper epigastric region. bowel sounds active in all 4 quandrants. pt a&ox4. pt ambulated with steady gait to bathroom.
[2023-01-23] MEDS: iohexoL 350 MG/ML 100 ML INFUS..BTL 85 ML IV (02:06)
== END 2023-01-23 03:27 | disposition home or self-care (01) ==
PROVIDERS: Physician Assistant Medical; Emergency Provider Emergency Medicine; PCP Internal Medicine
DX: K29.00 Acute gastritis without bleeding (principal); J90 Pleural effusion, not elsewhere classified; Z20.822 Contact with and (suspected) exposure to COVID-19; Z20.828 Contact with and (suspected) exposure to other viral communicable diseases; Z79.899 Other long term (current) drug therapy
CPT/HCPCS: 0241U; 71046; 71275; 80053; 81003; 83690; 83735; 84484; 85025; 85610; 85730; 93005; 96374; 99284; Q9967

== ENCOUNTER → 2023-01-22 22:13 | Outpatient (BNV) | payer OTHER, SELFPAY | PROVIDERS: Emergency Provider Emergency Medicine; PCP Internal Medicine; Visit Provider Internal Medicine | DX: R06.02 Shortness of breath (principal); K29.00 Acute gastritis without bleeding | CPT/HCPCS: 93010 ==

== ENCOUNTER 2023-01-30 08:52 | Outpatient (AMB) | payer OTHER, SELFPAY ==
[2023-01-30 08:53] VITALS: BP 130/82; PULSE 62; O2SAT 98; BMI 29.3
--- NOTE | 2023-01-30 08:53 | A.OFFPC_ITS ---
Vital Signs 01/30/23 08:53 Height 6 ft Weight 216 lb BMI 29.3 BP 130/82 Blood Pressure Location Lt brachial Position Sitting Pulse 62 Pulse Source Pulse Oximeter Pulse Oximetry (%) 98 Oxygen Delivery Method Room Air Intake [place] [facility] [place] upper abd pain/lung fluid Director Of Outpatient Services Required: No Dining Room Tables Set Up Attendant: Not Required per policy Accompanied by: Self / Same As Patient Allergies codeine [From TYLENOL-CODEINE #3] Allergy (Severe, Verified 01/30/23 08:54) RASH oxycodone Allergy (Unknown, Verified 01/30/23 08:54) Nausea Medication List - Last Reconciled 01/30/23 by Crow Omer MD albuterol sulfate 90 mcg/actuation 2 puffs inhalation Q6H PRN albuterol sulfate 90 mcg/actuation (ProAir HFA) 2 puffs PO Q6H PRN famotidine (Pepcid) 20 mg PO DAILY naproxen 500 mg PO BID 7 days prednisone 40 mg (2 x 20 mg) PO DAILY 5 days Tobacco use date assessed: 04/06/22 Dental Screening Dental Screen Date: 01/30/23 Did you have a dental visit in the last 12 months?: Yes Did you have a dental problem in the last 6 months where you did not have access to dental care?: No Was dental information given to patient?: Patient has dentist [place] [facility] [place] upper abd pain/lung fluid HPI Details ER visit with left sided chest pain; cxr showed left sided atel and effusion; still has pain PFSH Medical History Acute sinus infection Obesity Asthma Physical exam Surgical History History of appendectomy History of hernia repair Family History Father No problems noted. Mother No problems noted. Social History Housing: Apartment Alcohol intake: current Alcohol intake frequency: a few times a month Patient Tobacco Use Status: Never used Tobacco Tobacco use type: Cigarette e-Cigarette/Vaping Use: Never Used Second Hand Smoke Exposure: No service: No Current occupational status: unemployed Cognitive needs: No Hearing needs: No Vision needs: No Questionnaire Thrive Questionnaire Date Thrive assessed: 04/06/22 ALEENA-7 AMB Questionnaire ALEENA-7 Date ALEENA - 7 assessed: 04/06/22 Source: Developed by Drs. Ruben Odonnell, Shirley Song, Bobby Lopez and colleagues, with an educational david from [employer]. Review of Systems Const Denies chills, Denies headache(s) and Denies weight loss ENT Denies headache(s) Card Denies syncope, Denies irregular heart rhythm and Denies dyspnea Resp Denies chest congestion and Denies dyspnea GI Denies abdominal pain, Denies change in stool character, Denies nausea and Denies vomiting Musc Denies deformity and Denies joint swelling Neuro Denies syncope and Denies headache(s) Physical exam (Primary Care) Vital Signs: Last Vital Signs Pulse 62 01/30/23 08:53 BP 130/82 01/30/23 08:53 Pulse Ox 98 01/30/23 08:53 Oxygen Delivery Method Room Air 01/30/23 08:53 BMI result Body Mass Index 29.3 Tobacco/Smoking Status: Tobacco use Status Tobacco use date assessed 04/06/22 01/30/23 08:58 Patient Tobacco Use Status Never used Tobacco 01/30/23 08:58 Tobacco use type Cigarette 01/30/23 08:58 e-Cigarette/Vaping Use Never Used 01/30/23 08:58 Thrive Assessment: Date of Thrive Assessment Date Thrive assessed 04/06/22 01/30/23 08:58 Const General: cooperative, comfortable, no acute distress and alert Neck Neck: Yes no lymphadenopathy Thyroid: Thyroid normal Resp Effort & Inspection: normal respiratory effort Auscultation: clear to auscultation bilaterally Percussion: percussion normal Cardio Jugular venous distension: no JVD Palpation: normal PMI Rate: regular rate Rhythm: regular rhythm Heart sounds: S1 normal heart sound present and S2 normal heart sound present GI Inspection: Yes normal to inspection Palpation (GI): No hepatosplenomegaly present Skin General skin exam: no rashes or lesions noted Extrem General: Yes no clubbing, cyanosis or edema Assessment and Plan Assessment & Plan (1) Chest pain: Code(s): R07.9 - Chest pain, unspecified Plan: repeat cxr; antibiotics Orders: Orders XR chest 2V Today R07.9 - Chest pain, unspecified Referrals Pulmonary Medicine Referral J98.11 - Atelectasis Medications: New amoxicillin-pot clavulanate 500-125 mg (Augmentin) 1 tab PO BID 10 tabs 0RF Coding Level of Care Code Est Pt Level 3 (15957) Diagnoses Chest pain R07.9
== END 2023-01-30 09:17 | disposition home or self-care (01) ==
PROVIDERS: PCP Internal Medicine; Visit Provider Internal Medicine
DX: R07.9 Chest pain, unspecified (principal)
CPT/HCPCS: 99213

== ENCOUNTER 2023-02-14 10:54 | Outpatient (REF) | payer OTHER, SELFPAY | END 2023-02-14 10:55 | disposition home or self-care (01) | LOC: HO.XRAY 10:54 | PROVIDERS: PCP Internal Medicine; Visit Provider Internal Medicine | DX: R07.81 Pleurodynia (principal); J45.909 Unspecified asthma, uncomplicated; J90 Pleural effusion, not elsewhere classified | CPT/HCPCS: 71046; 94640; 99202 ==

== ENCOUNTER 2023-02-14 10:54 | Outpatient (AMB) | payer OTHER, SELFPAY ==
--- NOTE | 2023-02-14 10:57 | MHC.OFFVIS ---
Intake Vital Signs 02/14/23 11:01 Height 6 ft Weight 215 lb BMI 29.2 BP 126/70 Blood Pressure Location Rt brachial Position Sitting Pulse 76 Pulse Source Pulse Oximeter Pulse Oximetry (%) 97 Oxygen Delivery Method Room Air Intake Visit Reasons: Atelectasis Garnisher Required: No Manager Real Estate: Manager Real Estate offered & declined Allergies codeine [From TYLENOL-CODEINE #3] Allergy (Severe, Verified 02/14/23 11:02) RASH oxycodone Allergy (Unknown, Verified 02/14/23 11:02) Nausea Medication List - Last Reconciled 02/14/23 by Margot Hector LPN albuterol sulfate 90 mcg/actuation 2 puffs inhalation Q6H PRN albuterol sulfate 90 mcg/actuation (ProAir HFA) 2 puffs PO Q6H PRN famotidine (Pepcid) 20 mg PO DAILY naproxen 500 mg PO BID 7 days HPI Atelectasis HPI Details Anurag is a pleasant 42 year old male, never smoker, with underlying asthma since childhood. He was referred for pulmonary evalution by PCP after recent ED evaluation. He was seen in [facility] ED on 01/23 and prior on 01/01 with pleuritic chest pain. CTA performed on 01/23 which was negative for PE, however did reveal minimal atelectasis and small pleural effusion. Full report below. He reports intermittent wheezing, chest tightness and cough. He has been prescribed albuterol recently, which he has been using on a daily basis with good effect. He has never been prescribed a daily inhaler. 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 Denies pets. Reports mother, never smoker, had lung cancer as well as asthma. [facility] Medical History Acute sinus infection Obesity Asthma Physical exam Surgical History History of appendectomy History of hernia repair Family History Father No problems noted. Mother No problems noted. Social History (Updated 02/14/23 @ 11:05 by Margot Hector LPN) Housing: Apartment Alcohol intake: current Alcohol intake frequency: a few times a month Patient Tobacco Use Status: Never used Tobacco Tobacco use type: Cigarette Smoked in Last 30 Days: No e-Cigarette/Vaping Use: Never Used Second Hand Smoke Exposure: No service: No Current occupational status: unemployed Cognitive needs: No Hearing needs: No Vision needs: No Review of Systems Const Denies chills, Denies excessive sweating, Denies fever(s), Denies headache(s) and Denies night sweats Eyes Denies dry eyes, Denies irritation and Denies itchy eyes ENT Reports Normal hearing present, Denies headache(s), Denies nasal congestion, Denies nasal discharge, Denies post nasal drip and Denies sore throat Card Denies chest pain, Denies chest pain at rest, Denies chest pain with activity, Denies claudication, Denies leg edema, Denies dyspnea, Denies orthopnea and Denies paroxysmal nocturnal dyspnea Resp Denies chest congestion, Denies excessive phlegm production, Denies pain with cough, Denies dyspnea, Denies stridor and Denies wheezing Neuro Reports Normal hearing present and Denies headache(s) Endo Denies excessive sweating Nam/Lymph Denies lymphadenopathy Aller/Immun Denies itchy eyes, Denies seasonal rhinorrhea and Denies wheezing Physical Exam Vital Signs: Last Vital Signs Pulse 76 02/14/23 11:01 BP 126/70 02/14/23 11:01 Pulse Ox 97 02/14/23 11:01 Oxygen Delivery Method Room Air 02/14/23 11:01 BMI result Body Mass Index 29.2 Const General: cooperative, healthy appearing, comfortable, no acute distress, well developed and alert Nutritional Appearance: obese Orientation/consciousness: patient oriented x3 Limitations: no limitations HEENT Head: Yes normal to inspection, Yes normocephalic and Yes atraumatic Ears: hearing grossly normal bilaterally and external ears normal Eyes General: appearance normal, both eyes and all related structures Eyelids: Yes eyelids normal Sclerae: sclerae normal EOM: EOMs intact bilaterally Neck Neck: Yes normal visual inspection and Yes no lymphadenopathy Lymphatic: no lymphadenopathy noted Chest Chest palpation & inspection: normal inspection of the chest Resp Other: diminished lung sounds, improved with nebulizer Effort & Inspection: normal respiratory effort, able to speak in complete sentences, no audible wheezes, no cough, no stridor, not tachypneic, no tripod positioning and no use of accessory muscles Cardio Jugular venous distension: no JVD Rate: regular rate Rhythm: regular rhythm Skin Other: warm, dry General skin exam: no rashes or lesions noted Neuro General: patient oriented x3 Cranial nerves: Yes Normal hearing present Cognition (Neuro): normal cognition Gait exam (Neuro): Normal gait present Extrem General: Yes normal to inspection, Yes capillary refill normal, Yes no clubbing, cyanosis or edema and Yes no pedal edema Psych Appearance: grossly normal and well kempt Speech and movement: Normal speech and movement present and Clear speech present Affect: normal affect Attitude: cooperative Thought process: Normal thought process present Thought content: Normal thought content present Insight: Good insight present (Psych) Judgement: Good judgement present (Psych) Office Procedures Nebulizer Treatment Nebulizer Treatment 25041-Lyhigthfm/MDI RX initial, or Nebulizer Subsequent Treatment Office Meds ipratropium 0.5 mg-albuterol 3 mg (2.5 mg base)/3 mL nebulization soln Performing Provider: Desiree Schmidt NP Performing Location: [facility] Administered by: Margot Hector LPN on 02/14/23 11:44 Dose Route Admin Location Dispensed Lot Number Expiration Date [facility] Transportation Engineering Technician 3 mL inhalation 3 mL [id number] 11/18/24 58155-595-56 [employer] Results Reviewed Results Reviewed: [address] [address] [address] Scan Report Signed Patient: Anurag Roberson MR#: [id number] : 1980 Acct:[id number] Age/Sex: 42 / M ADM Date: 01/23/23 Loc: .ED Attending Dr: Ordering Physician: Cheyenne Horvath DO Date of Service: 01/23/23 Procedure(s): CT angio chest PE protocol Accession Number(s): [id number] cc: Cheyenne Horvath DO; Crow Omer MD~ EXAMINATION: CT ANGIOGRAM OF THE CHEST WITH AND WITHOUT CONTRAST (CT PULMONARY ANGIOGRAM FOR PE) CLINICAL INFORMATION: Reason for Exam l sided pain COMPARISON: None available. TECHNIQUE: Prior to contrast administration, noncontrast localization images were obtained. Subsequently, multidetector volumetric imaging was performed from the thoracic inlet to below the diaphragms following the administration of 80 mL Omnipaque 350 intravenous contrast. No contrast reaction reported Sagittal, coronal, and MIP oblique sagittal reformatted images were obtained on the CT workstation, uploaded to PACS, and reviewed. This CT examination was performed using dose optimization techniques as appropriate, variously including the following: *Automated exposure control *Adjustment of mA and/or kV according to patient size (this includes techniques or standardized protocols for targeted exams where dose is matched to indication/reason for exam; i.e. extremities or head) *Use of iterative reconstruction technique Total exam dose-length product 295 mGy-cm FINDINGS: QUALITY OF STUDY/CONTRAST BOLUS: Satisfactory. PULMONARY ARTERIES: No pulmonary emboli. THORACIC AORTA: No aneurysm. LUNG: There is minimal atelectatic change at the left lung base associated with a small left pleural effusion. There is minimal lingular atelectatic change. PLEURA: There is a small left pleural effusion. MEDIASTINUM: Normal heart size. No pericardial effusion. No hilar or mediastinal lymphadenopathy. No evidence of septal bowing or right heart strain. CORONARY ARTERY CALCIFICATION: None visualized on this study. CHEST WALL/AXILLA: No axillary or internal mammary lymphadenopathy. OSSEOUS STRUCTURES: No acute or suspicious osseous abnormality. UPPER ABDOMEN: Unremarkable. No reflux of contrast into the hepatic veins to suggest elevated right heart pressures. CT/CT angio chest PE protocol IMPRESSION: No evidence for pulmonary embolism. Small left pleural effusion with minimal associated atelectasis. VTE: Negative for pulmonary embolism. Assessment & Plan Assessment & Plan (1) Asthma: Code(s): J45.909 - Unspecified asthma, uncomplicated (2) Pleuritic pain: Code(s): R07.81 - Pleurodynia (3) Pleural effusion: Code(s): J90 - Pleural effusion, not elsewhere classified Plan Anurag's symptoms are likely related to underlying asthma as well as recent diagnosis of costochronidritis resulting in atelectasis secondary to poor inspiratory effort. Will obtain repeat CXR to assess to resolution of atelectatsis and pleural effusion. Will send for PFT and empirically trial on Breo. All questions were answered and patient is in agreement of plan. Will follow up in 2-3 months to review PFT results and response to inhaler. Orders: Orders XR chest 2V Today R07.81 - Pleurodynia PFT pulmonary function test Today J45.909 - Unspecified asthma, uncomplicated AMB Nebulizer Treatment Today J45.909 - Unspecified asthma, uncomplicated Medications: New fluticasone furoate-vilanterol 100-25 mcg/dose (Breo Ellipta) 1 inh inhalation DAILY 60 ea 3RF Coding Level of Care Code New Pt Level 4 (26079) Diagnoses Asthma J45.909 Pleuritic pain R07.81 Pleural effusion J90 CPT Codes Nebulizer Treatment - Nebulizer Treatment, initial or subsequent: 54054-Buitsxiow/MDI RX initial, or Nebulizer Subsequent Treatment ([id number])
[2023-02-14 11:01] VITALS: BP 126/70; PULSE 76; O2SAT 97; BMI 29.2
== END 2023-02-14 13:53 | disposition home or self-care (01) ==
PROVIDERS: PCP Internal Medicine; Visit Provider Nurse Practitioner Family
DX: J45.909 Unspecified asthma, uncomplicated (principal); R07.81 Pleurodynia; J90 Pleural effusion, not elsewhere classified
CPT/HCPCS: 99204

== ENCOUNTER 2023-03-08 09:36 | Outpatient (REF) | payer OTHER, SELFPAY ==
--- NOTE | 2023-03-08 10:39 | PFT_ITS ---
Flows: FEV1: 75 % of predicted at 3.28 L FVC: 72 % of predicted at 4.01 L FEV1/FVC: 82 % Bronchodilator response: Absent Volumes: Total lung capacity: 71 % of predicted at 5.41 L Residual volume: 70 % of predicted at 1.24 L Slow vital capacity: 71 % of predicted at 4.17 L Expiratory reserve volume: 56 % of predicted at 0.96 L Diffusion capacity: Normal Impression: Moderate restrictive ventilatory defect with no bronchodilator response. Decreased expiratory reserve volume suggests extrathoracic restriction likely secondary to abdominal obesity. MTDD
== END 2023-03-08 09:37 | disposition home or self-care (01) ==
LOC: HO.RESP 09:36
PROVIDERS: PCP Internal Medicine; Visit Provider Nurse Practitioner Family
DX: J45.909 Unspecified asthma, uncomplicated (principal)
CPT/HCPCS: 94010; 94727; 94729

== ENCOUNTER → 2023-03-08 10:39 | Outpatient (BNV) | payer OTHER, SELFPAY | PROVIDERS: PCP Internal Medicine; Visit Provider Internal Medicine Pulmonary Disease | DX: J45.909 Unspecified asthma, uncomplicated (principal) | CPT/HCPCS: 94060; 94727; 94729 ==

== ENCOUNTER 2023-04-11 09:29 | Outpatient (AMB) | payer OTHER, SELFPAY ==
--- NOTE | 2023-04-11 09:31 | A.OFFPC_ITS ---
Vital Signs 04/11/23 09:32 Height 6 ft Weight 222 lb BMI 30.1 BP 122/82 Blood Pressure Location Lt brachial Position Sitting Pulse 75 Pulse Source Pulse Oximeter Pulse Oximetry (%) 99 Oxygen Delivery Method Room Air Intake Visit Reasons: PE Store Keeper Required: No Detail Drafter: Not Required per policy Accompanied by: Self / Same As Patient Allergies codeine [From TYLENOL-CODEINE #3] Allergy (Severe, Verified 04/11/23 09:32) RASH oxycodone Allergy (Unknown, Verified 04/11/23 09:32) Nausea Medication List - Last Reconciled 04/11/23 by Crow Omer MD albuterol sulfate 90 mcg/actuation 2 puffs inhalation Q6H PRN albuterol sulfate 90 mcg/actuation (ProAir HFA) 2 puffs PO Q6H PRN famotidine (Pepcid) 20 mg PO DAILY fluticasone furoate-vilanterol 100-25 mcg/dose (Breo Ellipta) 1 inh inhalation DAILY naproxen 500 mg PO BID 7 days Tobacco use date assessed: 04/11/23 Dental Screening Dental Screen Date: 04/11/23 Did you have a dental visit in the last 12 months?: Yes Did you have a dental problem in the last 6 months where you did not have access to dental care?: No Was dental information given to patient?: Patient has dentist HPI PE HPI Details no reg meds PFSH Medical History Acute sinus infection Obesity Asthma Physical exam Surgical History History of appendectomy History of hernia repair Family History Father No problems noted. Mother No problems noted. Social History (Updated 02/14/23 @ 11:05 by Margot Hector LPN) Housing: Apartment Alcohol intake: current Alcohol intake frequency: a few times a month Patient Tobacco Use Status: Never used Tobacco Tobacco use type: Cigarette e-Cigarette/Vaping Use: Never Used Second Hand Smoke Exposure: No service: No Current occupational status: unemployed Cognitive needs: No Hearing needs: No Vision needs: No Questionnaire PHQ-9 Over the last 2 weeks, how often have you been bothered by any of the following problems? 1. Little interest or pleasure in doing things: more than half the days 2. Feeling down, depressed, or hopeless: more than half the days 3. Trouble falling or staying asleep, or sleeping too much: several days 4. Feeling tired or having little energy: several days 5. Poor appetite or overeating: more than half the days 6. Feeling bad about yourself - or that you are a failure or have let yourself or your family down: not at all 7. Trouble concentrating on things, such as reading the newspaper or watching television: several days 8. Moving or speaking so slowly that other people could have noticed. Or the opposite - being so fidgety or restless that you have been moving around a lot more than usual: not at all 9. Thoughts that you would be better off or of hurting yourself in some way: not at all Total score: 9 Depression Screening Interpretation: Positive Depression Screening Done: Yes 71482 - PHQ-9 Billing: Yes Source: Developed by Drs. Ruben Odonnell, Shirley Song, Bobby Lopez and colleagues, with an educational david from [employer]. Thrive Questionnaire Date Thrive assessed: 04/11/23 I am a: Patient What is your living situation today?: I have a steady place to live Within the past 12 months, did the food you bought not last and you didn't have the money to get more?: Never true Within the past 12 months, did you worry whether your food would run out before you got money to buy more?: Never true Do you have trouble paying for medicines?: No Do you have trouble getting transportation to medical appointments?: No Do you have trouble paying your heating and electricity bill?: No Do you have trouble taking care of your child, family member or friend?: No Do you have trouble with day-to-day activities such as bathing, preparing meals, shopping, managing finances, etc.?: No Are you currently unemployed and looking for a job?: No Are you interested in more education?: No Please select the resources that you would like help with: None THRIVE Score: 0 AUDIT C Alcohol Use Questionnaire (AUDIT-C) 1. How often do you have a drink containing alcohol?: Never Total Score: 0 Score Reviewed/Action Taken: Yes ALEENA-7 AMB Questionnaire ALEENA-7 Date ALEENA - 7 assessed: 04/11/23 Feeling nervous, anxious, or on edge: 0 = Not at all Not being able to stop or control worryin = Not at all Worrying too much about different things: 0 = Not at all Trouble relaxin = Not at all Being so restless that it is hard to sit still: 0 = Not at all Becoming easily annoyed or irritable: 0 = Not at all Feeling afraid as if something awful might happen: 0 = Not at all Total ALEENA-7 score (0-4 normal; 5-9 mild; 10-14 moderate; 15-21 severe): 0 Source: Developed by Drs. Ruben Odonnell, Shirley Song, Bobby Lopez and colleagues, with an educational david from [employer]. ALEENA-7 Assessment Billing ALEENA-7 Assessment Tool: ALEENA-7 Assessment 04242 Review of Systems Const Denies chills, Denies fatigue, Denies headache(s) and Denies weight loss Eyes Denies change in vision, Denies diplopia and Denies eye pain ENT Denies vertigo, Denies dizziness, Denies headache(s) and Denies nasal discharge Card Denies chest pain, Denies rapid heart rate and Denies dyspnea on exertion Resp Denies chest congestion, Denies cough, Denies pain with cough and Denies dyspnea on exertion GI Denies abdominal pain, Denies hematochezia and Denies change in bowel habits Musc Denies myalgias, Denies arthralgias and Denies joint swelling Skin/Breast Denies lesions and Denies unusual bruising Neuro Denies vertigo, Denies dizziness, Denies headache(s) and Denies focal weakness Endo Denies fatigue Physical exam (Primary Care) Vital Signs: Last Vital Signs Pulse 75 04/11/23 09:32 BP 122/82 04/11/23 09:32 Pulse Ox 99 04/11/23 09:32 Oxygen Delivery Method Room Air 04/11/23 09:32 BMI result Body Mass Index 30.1 Tobacco/Smoking Status: Tobacco use Status Tobacco use date assessed 04/11/23 04/11/23 09:33 Patient Tobacco Use Status Never used Tobacco 04/11/23 09:33 Tobacco use type Cigarette 04/11/23 09:33 e-Cigarette/Vaping Use Never Used 04/11/23 09:33 PHQ-9: PHQ-9 Score PHQ-9: Total score 9 04/11/23 09:42 Depression Screening Interpretation: Positive Thrive Assessment: Date of Thrive Assessment Date Thrive assessed 04/11/23 04/11/23 09:33 Const General: cooperative, healthy appearing and no acute distress Orientation/consciousness: oriented to person, oriented to place and oriented to time HENMT Head: Yes normal to inspection, Yes normocephalic and Yes atraumatic Mouth: Normal oral and palatal mucosa present and tongue normal Throat: Yes posterior oropharynx normal and Yes uvula midline Eyes General: appearance normal, both eyes and all related structures Neck Neck: Yes normal visual inspection, Yes full ROM and Yes no lymphadenopathy Thyroid: Thyroid normal Carotids: normal carotid upstroke Chest Chest palpation & inspection: normal inspection of the chest Resp Effort & Inspection: normal respiratory effort and able to speak in complete sentences Auscultation: clear to auscultation bilaterally Cardio Jugular venous distension: no JVD Palpation: normal PMI Rate: regular rate Rhythm: regular rhythm Heart sounds: S1 normal heart sound present and S2 normal heart sound present GI Inspection: Yes normal to inspection Palpation (GI): Soft to palpation and No hepatosplenomegaly present Auscultation: normal bowel sounds General: Yes no CVA tenderness Back/Spine/Pelvis Back: no CVA tenderness Skin General skin exam: no rashes or lesions noted Neuro General: oriented to person, oriented to place and oriented to time Extrem General: Yes normal to inspection and Yes full ROM Assessment and Plan Assessment & Plan (1) Physical exam: Code(s): Z00.00 - Encounter for general adult medical examination without abnormal findings Plan: labs (2) Depression: Code(s): F32.A - Depression, unspecified Plan: rx sent Orders: Orders Comprehensive Jamison. Panel Fast Today N28.9 - Disorder of kidney and ureter, unspecified Lipid Panel Today E78.5 - Hyperlipidemia, unspecified Thyroid Stimulating Hormone Today E03.9 - Hypothyroidism, unspecified Complete Blood Count Auto Diff Today D64.9 - Anemia, unspecified Medications: New sertraline 25 mg PO DAILY 30 tabs 3RF Coding Level of Care Code Est Pt Prev Care 40-64y(86907) Diagnoses Physical exam Z00.00 Depression F32.A Additional Codes ALEENA-7 Assessment Billing - ALEENA-7 Assessment Tool: ALEENA-7 Assessment 00892 ([id number])
[2023-04-11 09:32] VITALS: BP 122/82; PULSE 75; O2SAT 99; BMI 30.1
== END 2023-04-11 09:54 | disposition home or self-care (01) ==
PROVIDERS: Visit Provider Internal Medicine
DX: Z00.00 Encounter for general adult medical examination without abnormal findings (principal); F32.A Depression, unspecified
CPT/HCPCS: 96127; 99396

== ENCOUNTER 2023-04-12 07:20 | Outpatient (REF) | payer OTHER, SELFPAY ==
[2023-04-12 07:37] LABS: MANUAL DIFF FLAG NO
[2023-04-12 07:53] LABS: Basophils Percent Auto 0.5 % (0-2); Eosinophils Absolute Auto 0.4 X10*3/uL (0.0-0.4); Eosinophils Percent Auto 4.9 % (0-4); Hemoglobin 15.8 g/dl (14.0-18.0); Imm Gran Abs Auto 0.03 X10*3/uL (0.00-0.03); Imm Gran Pct Auto 0.4 % (0.0-0.4); Lymphocytes Absolute Auto 2.8 X10*3/uL (1.2-4.9); Lymphocytes Percent Auto 36.6 % (20-40); Mean Corpuscular HGB Conc 32.9 g/dl (31.0-36.0); Mean Corpuscular Hemoglobin 26.9 pg (27.0-33.0); Mean Corpuscular Volume 81.8 fL (80.0-98.0); Mean Platelet Volume 11.1 fL (9.4-12.4); Monocytes Absolute Auto 0.7 X10*3/uL (0.1-1.2); Monocytes Percent Auto 8.9 % (2-11); Neutrophils Absolute Auto 3.8 x10*3/uL (2.0-8.3); Neutrophils Percent Auto 48.7 % (45-73); Platelet Count 188 X10*3/uL (160-400); Red Blood Count 5.87 X10*6/uL (4.60-5.80); Red Cell Distribution Width 13.8 % (11.0-16.0); White Blood Count 7.8 X10*3/uL (4.8-10.8)
[2023-04-12 08:37] LABS: Alanine Aminotransferase 13 U/L (0-40); Albumin Level 4.3 g/dL (3.5-5.0); Alkaline Phosphatase 55 U/L (39-117); Anion Gap 11 (12-20); Aspartate Amino Transferase 14 U/L (5-37); Bilirubin Total 2.1 mg/dL (0.0-1.0); Blood Urea Nitrogen 17 mg/dL (9-16); Calcium 9.4 mg/dL (8.4-10.2); Carbon Dioxide 27 mmol/L (22-29); Chloride 108 mmol/L (96-108); Cholesterol 186 mg/dL (<200); Estimated Glomerular Filt Rate > 60; Glucose Fasting 104 mg/dL (60-99); HDL Cholesterol 36 mg/dL (>40); LDL Cholesterol Calculated 113 mg/dL (<100); Sodium 142 mmol/L (135-145); Total Protein 6.9 g/dL (6.5-8.0); Triglycerides 187 mg/dL (<150)
[2023-04-12 08:55] LABS: Thyroid Stimulating Hormone 3.37 uIU/mL (0.32-4.0)
== END 2023-04-12 07:21 | disposition home or self-care (01) ==
LOC: HO.LAB 07:20
PROVIDERS: PCP Internal Medicine; Visit Provider Internal Medicine
DX: E03.9 Hypothyroidism, unspecified (principal); D64.9 Anemia, unspecified; N28.9 Disorder of kidney and ureter, unspecified; E78.5 Hyperlipidemia, unspecified
CPT/HCPCS: 36415; 80053; 80061; 84443; 85025

== ENCOUNTER 2024-01-05 15:58 | Emergency (ER) | payer OTHER, SELFPAY ==
--- NOTE | ~2024-01-05 | XR_ITS ---
EXAMINATION: XR SHOULDER, LEFT CLINICAL INFORMATION: Left shoulder pain. COMPARISON: None available. TECHNIQUE: Three views of the left shoulder. FINDINGS: The bones and soft tissues appear unremarkable. No fracture identified. Glenohumeral and acromioclavicular alignment is anatomic with normal joint space. No abnormal soft tissue calcifications appreciated. XR/XR shoulder LT min 2V IMPRESSION: Normal plain film examination of the left shoulder. Electronically signed by: Otoniel Hartman MD 01/05/2024 05:08 PM CHANTAL LORENZANA
[2024-01-05 16:21] VITALS: BP 121/87; PULSE 83; RESP 18; TEMP 37.1; O2SAT 99
[2024-01-05 20:00] VITALS: BP 136/93; PULSE 66; RESP 16; TEMP 36.8; O2SAT 100
--- NOTE | 2024-01-05 20:48 | ED_ITS ---
HPI - Extremity Problem General Chief complaint: Extremity Problem Stated complaint: left side back shoulder pain Time Seen by Provider: 01/05/24 20:35 Source: patient Mode of arrival: ambulatory Limitations: no limitations History of Present Illness ED Provider: zoë TEE Narrative: Patient was moving heavy stuff days since then noticed pain in the upper back especially in the rhomboids area no other injuries Related Data Previous Rx's ?Medication ?Instructions ?Recorded albuterol sulfate 90 mcg/actuation 2 puff PO Q6H PRN bronchospasm #18 02/02/22 aerosol inhaler (ProAir HFA) grams albuterol sulfate 90 mcg/actuation 2 puff inhalation Q6H PRN 01/01/23 aerosol inhaler shortness of breath or wheezing #8.5 grams naproxen 500 mg tablet 500 mg PO BID 7 days #14 tabs 01/01/23 famotidine 20 mg tablet (Pepcid) 20 mg PO DAILY abdominal 01/23/23 discomfort #10 tabs fluticasone furoate 100 1 inh inhalation DAILY #60 ea 02/14/23 mcg-vilanterol 25 mcg/dose inhalation powder (Breo Ellipta) sertraline 25 mg tablet 25 mg PO DAILY #30 tabs 04/11/23 cyclobenzaprine 10 mg tablet 10 mg PO Q8H #20 tabs 01/05/24 ibuprofen 600 mg tablet 600 mg PO Q6H PRN fever or pain 01/05/24 #30 tabs Allergies Allergy/AdvReac Type Severity Reaction Status Date / Time codeine Allergy Severe RASH Verified 01/05/24 16:22 [From TYLENOL-CODEINE #3] oxycodone Allergy Unknown Nausea Verified 01/05/24 16:22 Review of Systems 2 Review of Systems: Yes all other systems are reviewed and are negative PMFSH Past Medical History Medical History Acute sinus infection Obesity Asthma Physical exam Surgical History History of appendectomy History of hernia repair Family History Family History Father No problems noted. Mother No problems noted. Social History Social History Housing: Apartment Alcohol intake: current Alcohol intake frequency: a few times a month Patient Tobacco Use Status: Never used Tobacco Tobacco use type: Cigarette Smoked in Last 30 Days: No e-Cigarette/Vaping Use: Never Used Second Hand Smoke Exposure: No Use of substances other than those prescribed or required for medical reasons: No Advance Directives: No Advance Directives Information Provided: No service: No Current occupational status: unemployed Cognitive needs: No Hearing needs: No Vision needs: No Physical Exam 2 Vital Signs: Vital Signs: Last Vital Signs Temp 98.2 F 01/05/24 20:00 Pulse 66 01/05/24 20:00 Resp 16 01/05/24 20:00 BP 136/93 H 01/05/24 20:00 Pulse Ox 100 01/05/24 20:00 O2 Del Method Room Air 01/05/24 20:00 BMI result Body Mass Index 30.0 Appearance: Alert. Oriented X3. No acute distress. ENT: Pharynx normal. Oral Mucosa moist Neck: Normal inspection. Neck supple. CVS: Normal heart rate and rhythm. Pulses normal. Respiratory: No respiratory distress. Equal air entry bilateral, no wheezing/rales/rhonchi Skin: Skin warm and dry. Normal skin color. Normal skin turgor. Extremities: No lower extremity edema. Neuro: Oriented X 3. Back/Spine/Pelvis: Back/spine/pelvis image: 1. Tenderness in the right rhomboids and trapezius area right shoulder good range of movement Medications Administered Discontinued Medications Generic Name Dose Route Start Last Admin Trade Name Freq PRN Reason Stop Dose Admin Cyclobenzaprine HCl 10 mg 01/05/24 20:48 01/05/24 21:02 Cyclobenzaprine Hcl 10 Mg Tablet PO 01/05/24 20:49 10 mg ONCE ONE Administration Ibuprofen 600 mg 01/05/24 20:48 01/05/24 21:02 Ibuprofen 600 Mg Tablet PO 01/05/24 20:49 600 mg ONCE ONE Administration Medical Decision Making Independent Interpretation I performed an independent interpretation of an: Plain X-Ray Interpretation: Negative left shoulder x-ray Radiology Impression Discussion of test interpretation with radiology: I have reviewed the radiologist's reading. Discharge Plan Discharge Clinical Impression: Muscle strain of left upper back Patient Disposition: Home, Self-Care Instructions: Thoracic Back Strain (ED) Additional Instructions: Take ibuprofen for pain Flexeril for muscle relaxation Apply ice pack Prescriptions: New cyclobenzaprine 10 mg tablet 10 mg PO Q8H Qty: 20 0RF ibuprofen 600 mg tablet 600 mg PO Q6H PRN (Reason: fever or pain) Qty: 30 0RF No Action albuterol sulfate [ProAir HFA] 90 mcg/actuation HFA aerosol inhaler 2 puff PO Q6H PRN (Reason: bronchospasm) Qty: 18 8RF albuterol sulfate 90 mcg/actuation HFA aerosol inhaler 2 puff inhalation Q6H PRN (Reason: shortness of breath or wheezing) Qty: 8.5 0RF naproxen 500 mg tablet 500 mg PO BID 7 Days Qty: 14 0RF famotidine [Pepcid] 20 mg tablet 20 mg PO DAILY Qty: 10 0RF sertraline 25 mg tablet 25 mg PO DAILY Qty: 30 3RF fluticasone furoate-vilanterol [Breo Ellipta] 100-25 mcg/dose blister with device 1 inh inhalation DAILY Qty: 60 3RF Print Language: Kyrgyz
[2024-01-05] MEDS: Cyclobenzaprine HCl 10 MG TABLET PO (21:02)
[2024-01-05] MEDS: Ibuprofen 600 MG TABLET PO (21:02)
[2024-01-05 22:00] VITALS: BP 136/93; PULSE 66; RESP 16; TEMP 36.8; O2SAT 100
== END 2024-01-05 21:22 | disposition home or self-care (01) ==
PROVIDERS: Emergency Provider Internal Medicine; PCP Internal Medicine
DX: S29.012A Strain of muscle and tendon of back wall of thorax, initial encounter (principal); X50.0XXA Overexertion from strenuous movement or load, initial encounter; Y93.E9 Activity, other interior property and clothing maintenance; Y92.019 Unspecified place in single-family (private) house as the place of occurrence of the external cause; Y99.9 Unspecified external cause status
CPT/HCPCS: 73030; 99283; 99284

== ENCOUNTER 2024-07-04 16:50 | Emergency (ER) | payer OTHER, SELFPAY ==
--- NOTE | ~2024-07-04 | XR_ITS ---
CLINICAL HISTORY: R shoulder pain 4 view right shoulder Comparison: None Findings: Bones intact. No dislocations. No significant arthritic change. No erosions. No radiopaque foreign body. IMPRESSION: 1. No acute findings This document has been electronically signed by: Peggy Mancilla MD on 07/04/2024 17:55:26
--- NOTE | 2024-07-04 17:21 | ED.GENADULT ---
HPI - General Adult General Chief complaint: Extremity Problem Stated complaint: right houlder pain radiating down to fingers Time Seen by Provider: 07/04/24 22:24 Source: patient, RN notes reviewed and old records reviewed Mode of arrival: ambulatory Limitations: no limitations History of Present Illness ED Provider: Natalie HPI narrative: 44-year-old male presents for evaluation of right shoulder pain. Patient reports that his pain has been worsening for the last 2 days but today became severe. The pain is mostly in the back of the right shoulder and radiates symptoms right arm all the way down into his fingertips. He reports no improvement with NSAIDs. 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 He denies chest pain or shortness of breath Related Data Previous Rx's ?Medication ?Instructions ?Recorded albuterol sulfate 90 mcg/actuation 2 puff PO Q6H PRN bronchospasm #18 02/02/22 aerosol inhaler (ProAir HFA) grams albuterol sulfate 90 mcg/actuation 2 puff inhalation Q6H PRN 01/01/23 aerosol inhaler shortness of breath or wheezing #8.5 grams naproxen 500 mg tablet 500 mg PO BID 7 days #14 tabs 01/01/23 famotidine 20 mg tablet (Pepcid) 20 mg PO DAILY abdominal 01/23/23 discomfort #10 tabs fluticasone furoate 100 1 inh inhalation DAILY #60 ea 02/14/23 mcg-vilanterol 25 mcg/dose inhalation powder (Breo Ellipta) sertraline 25 mg tablet 25 mg PO DAILY #30 tabs 04/11/23 cyclobenzaprine 10 mg tablet 10 mg PO Q8H #20 tabs 01/05/24 ibuprofen 600 mg tablet 600 mg PO Q6H PRN fever or pain 01/05/24 #30 tabs cyclobenzaprine 10 mg tablet 10 mg PO TID PRN muscle spasm #20 07/04/24 tabs prednisone 20 mg tablet 40 mg (2 x 20 mg) PO DAILY #10 tabs 07/04/24 Allergies Allergy/AdvReac Type Severity Reaction Status Date / Time codeine Allergy Severe RASH Verified 07/04/24 17:24 [From TYLENOL-CODEINE #3] oxycodone Allergy Unknown Nausea Verified 07/04/24 17:24 Review of Systems Constitutional: Constitutional: Denies body ache(s), Denies chills, Denies fatigue, Denies fever(s) and Denies headache(s) ENT: Denies dysphagia, Denies vertigo and Denies headache(s) Cardiovascular: Cardiovascular: Denies chest pain Gastrointestinal: Gastrointestinal: Denies dysphagia Musculoskeletal: Musculoskeletal: Reports arthralgias, Reports joint swelling, Reports limited range of motion, Reports numbness and Reports tingling Integumentary/Breasts: Skin/Breast: Denies rash Neurologic: Denies vertigo, Denies headache(s), Reports numbness and Reports tingling Endocrine: Endocrine: Denies fatigue PMFSH Past Medical History Medical History Acute sinus infection Obesity Asthma Physical exam Surgical History History of appendectomy History of hernia repair Family History Family History Father No problems noted. Mother No problems noted. Social History Social History Housing: Apartment Alcohol intake: current Alcohol intake frequency: a few times a month Patient Tobacco Use Status: Never used Tobacco Tobacco use type: Cigarette e-Cigarette/Vaping Use: Never Used Second Hand Smoke Exposure: No Advance Directives: No Advance Directives Information Provided: Yes Do you have a plan to hurt others: No Plan service: No Current occupational status: unemployed Cognitive needs: No Hearing needs: No Vision needs: No Physical Exam ED Vital Signs: Vital Signs - 24 hr 07/04/24 17:22 07/04/24 22:55 Temperature 98.9 F 98.9 F Pulse Rate 73 73 Respiratory Rate 16 16 Blood Pressure 130/97 H 130/97 H Pulse Oximetry 97 97 Oxygen Delivery Method Room Air Room Air BMI result Body Mass Index 29.5 Const General: healthy appearing, comfortable, no acute distress, alert and awake Nutritional Appearance: well nourished Orientation/consciousness: patient oriented x3 HENMT Head: Yes normocephalic and Yes atraumatic Eyes Eyelids: Yes eyelids normal Conjunctivae: conjunctivae normal Sclerae: sclerae normal Corneas: corneas normal Pupils: Equal, round and reactive pupils present EOM: EOMs intact bilaterally Neck Neck: Yes full ROM Resp Effort & Inspection: normal respiratory effort, able to speak in complete sentences and not labored GI Inspection: No distended Palpation (GI): Soft to palpation, not firm, nontender, no guarding and not rigid Skin General skin exam: elasticity normal Neuro General: patient oriented x3 Cranial nerves: Yes Equal, round and reactive pupils present and Yes Bilaterally intact EOM present Cognition (Neuro): normal cognition Extrem Other: There was no obvious deformity to the right upper extremity. There is minimal tenderness to the right posterior shoulder and trapezius muscle group. That has minimal tenderness to the right cervical paraspinous region. He retains full range of motion with shoulder, elbow, and wrist. Gross sensation is intact, distal capillary refill intact. Radial pulses 2+ and equal Course Course Course Narrative: This is a Rapid Medical Exam performed in triage by Naomi Muse PA-C. Full HPI, ROS and PE to be performed by primary ED provider. 44-year-old male with a past medical history of obesity, asthma, depression, presenting to the ED c/o R shoulder pain x2 days w/assoc R finger numbness & tingling. denies injury. reports heavy lifting at work. denies CP/MULTANI PE: RUE w/o deformity, + reproducible right shoulder tenderness. Neurovascularly intact distally. Decreased sensation to right digits to light touch. Full range of motion intact. No crepitus Plan: EKG, labs, XR Medical Decision Making Medical Decision Making [facility] Narrative: 44-year-old male presents for evaluation of right shoulder pain. He does reports repetitive motion and heavy lifting but no trauma. X-rays negative for acute injury, EKG is nonischemic. Labs are unremarkable. History exam is most consistent with overuse injury which I discussed with the patient. He may have some degree of thoracic outlet syndrome which I discussed with him. He will follow up with his outpatient providers. We will treat his symptoms with a short course of prednisone and cyclobenzaprine Differential Diagnosis Differential Diagnoses: The differential diagnosis associated with the presentation includes Tendonitis Bursitis Thoracic outlet syndrome Muscle strain Arthritis Lab Data [facility] Lab Attestation statement: I reviewed the patient's lab results. No leukocytosis or anemia. Normal platelet count. No electrolyte abnormalities warranting intervention. 07/04/24 17:37 07/04/24 17:37 Labs: Lab Results 07/04/24 Range/Units 17:37 WBC 7.2 (4.8-10.8) X10*3/uL RBC 5.77 (4.60-5.80) X10*6/uL Hgb 15.5 (14.0-18.0) g/dl Hct 45.7 (42.0-52.0) % MCV 79.2 L (80.0-98.0) fL MCH 26.9 L (27.0-33.0) pg MCHC 33.9 (31.0-36.0) g/dl RDW 13.7 (11.0-16.0) % Plt Count 221 (160-400) X10*3/uL MPV 11.6 (9.4-12.4) fL Immature Gran % (Auto) 0.3 (0.0-0.4) % Neut % (Auto) 50.0 (45-73) % Lymph % (Auto) 37.3 (20-40) % [place] % (Auto) 8.1 (2-11) % Eos % (Auto) 3.6 (0-4) % Baso % (Auto) 0.7 (0-2) % Lymph # (Auto) 2.7 (1.2-4.9) X10*3/uL [place] # (Auto) 0.6 (0.1-1.2) X10*3/uL Eos # (Auto) 0.3 (0.0-0.4) X10*3/uL Baso # (Auto) 0.1 (0.0-0.2) X10*3/uL Abs Immat Gran (auto) 0.02 (0.00-0.03) X10*3/uL Absolute Neuts (auto) 3.6 (2.0-8.3) x10*3/uL Absolute Nucleated RBC 0.000 (0.0-0.012) X10*3/uL Nucleated RBC % (auto) 0.0 (0.0-0.2) /100WBC Sodium 141 (135-145) mmol/L Potassium 4.0 (3.3-5.1) mmol/L Chloride 109 H (96-108) mmol/L Carbon Dioxide 23 (22-29) mmol/L Anion Gap 13 (12-20) BUN 17 H (9-16) mg/dL Creatinine 0.78 (0.5-1.4) mg/dL Estim Creat Clear Calc 147.0 Estimated GFR > 60 Random Glucose 101 (60-115) mg/dL Calcium 9.3 (8.4-10.2) mg/dL Magnesium 2.1 (1.6-2.6) mg/dL Total Bilirubin 1.9 H (0.0-1.0) mg/dL Direct Bilirubin 0.4 (0.0-0.5) mg/dL AST 18 (5-37) U/L ALT 16 (0-40) U/L Alkaline Phosphatase 58 (39-117) U/L Troponin I High Sens < 2.7 (<3.5-35.0) ng/L Total Protein 7.2 (6.5-8.0) g/dL Albumin 4.4 (3.5-5.0) g/dL Independent Interpretation I performed an independent interpretation of an: EKG Interpretation: Normal sinus rhythm with a rate of 72 beats minute. No significant change when compared to previous from January 22, 2023. Radiology Impression Discussion of test interpretation with radiology: I have reviewed the radiologist's reading. Radiologist Impression: Findings: Bones intact. No dislocations. No significant arthritic change. No erosions. No radiopaque foreign body. IMPRESSION: 1. No acute findings This document has been electronically signed by: Peggy Mancilla MD on 07/04/2024 17:55:26 Discharge Plan Discharge Clinical Impression: Acute pain of right shoulder Patient Disposition: Home, Self-Care Instructions: Shoulder Pain (ED), Shoulder Impingement Syndrome (ED) Additional Instructions: Your workup in the ER today was reassuring. This includes your x-ray, labs, EKG. Your pain is most likely related to an overuse injury such as a bursitis or tendinitis related to your job. I recommend avoiding heavy lifting or strenuous activity with the right arm for the next 4-5 days Use ibuprofen as needed for pain inflammation. You may use cyclobenzaprine for muscle spasms This may make you drowsy, do not drink alcohol or drive after taking it. Take prednisone 40 mg daily for the next 5 days to help reduce inflammation Follow-up with your primary doctor, return for new or worsening symptoms Prescriptions: New cyclobenzaprine 10 mg tablet 10 mg PO TID PRN (Reason: muscle spasm) Qty: 20 0RF prednisone 20 mg tablet 40 mg PO DAILY Qty: 10 0RF No Action albuterol sulfate [ProAir HFA] 90 mcg/actuation HFA aerosol inhaler 2 puff PO Q6H PRN (Reason: bronchospasm) Qty: 18 8RF albuterol sulfate 90 mcg/actuation HFA aerosol inhaler 2 puff inhalation Q6H PRN (Reason: shortness of breath or wheezing) Qty: 8.5 0RF naproxen 500 mg tablet 500 mg PO BID 7 Days Qty: 14 0RF cyclobenzaprine 10 mg tablet 10 mg PO Q8H Qty: 20 0RF ibuprofen 600 mg tablet 600 mg PO Q6H PRN (Reason: fever or pain) Qty: 30 0RF famotidine [Pepcid] 20 mg tablet 20 mg PO DAILY Qty: 10 0RF sertraline 25 mg tablet 25 mg PO DAILY Qty: 30 3RF fluticasone furoate-vilanterol [Breo Ellipta] 100-25 mcg/dose blister with device 1 inh inhalation DAILY Qty: 60 3RF Stand Alone Forms: Work/School Release Interventions: ED Discharge Assessment Last Done: 07/04/24 22:55 Discharge Date/Time: 07/04/24 22:55 Print Language: Turkish
[2024-07-04 17:22] VITALS: BP 130/97; PULSE 73; RESP 16; TEMP 37.2; O2SAT 97; BMI 29.5
--- NOTE | 2024-07-04 17:23 | ECG_ITS ---
Test Reason : shoulder pain Blood Pressure : */* mmHG Vent. Rate : 72 BPM Atrial Rate : 72 BPM P-R Int : 166 ms QRS Dur : 72 ms QT Int : 380 ms P-R-T Axes : 28 41 21 degrees QTcB Int : 416 ms Normal sinus rhythm Nonspecific ST abnormality Abnormal ECG When compared with ECG of 22-Jan-2023 22:19, No significant change was found Referred By: Naomi Muse Electronically Signed By: JOHN LEONE MD
[2024-07-04 17:42] LABS: MANUAL DIFF FLAG NO
[2024-07-04 18:01] LABS: Alanine Aminotransferase 16 U/L (0-40); Albumin Level 4.4 g/dL (3.5-5.0); Alkaline Phosphatase 58 U/L (39-117); Anion Gap 13 (12-20); Aspartate Amino Transferase 18 U/L (5-37); Bilirubin Direct 0.4 mg/dL (0.0-0.5); Bilirubin Total 1.9 mg/dL (0.0-1.0); Blood Urea Nitrogen 17 mg/dL (9-16); Calcium 9.3 mg/dL (8.4-10.2); Carbon Dioxide 23 mmol/L (22-29); Chloride 109 mmol/L (96-108); Estimated Glomerular Filt Rate > 60; Glucose Random 101 mg/dL (60-115); Magnesium 2.1 mg/dL (1.6-2.6); Sodium 141 mmol/L (135-145); Total Protein 7.2 g/dL (6.5-8.0)
[2024-07-04 18:08] LABS: Troponin-I High Sensitivity < 2.7 ng/L (<3.5-35.0)
[2024-07-04 18:13] LABS: Basophils Absolute Auto 0.1 X10*3/uL (0.0-0.2); Basophils Percent Auto 0.7 % (0-2); Eosinophils Absolute Auto 0.3 X10*3/uL (0.0-0.4); Eosinophils Percent Auto 3.6 % (0-4); Hematocrit 45.7 % (42.0-52.0); Hemoglobin 15.5 g/dl (14.0-18.0); Imm Gran Abs Auto 0.02 X10*3/uL (0.00-0.03); Imm Gran Pct Auto 0.3 % (0.0-0.4); Lymphocytes Absolute Auto 2.7 X10*3/uL (1.2-4.9); Lymphocytes Percent Auto 37.3 % (20-40); Mean Corpuscular HGB Conc 33.9 g/dl (31.0-36.0); Mean Corpuscular Hemoglobin 26.9 pg (27.0-33.0); Mean Corpuscular Volume 79.2 fL (80.0-98.0); Mean Platelet Volume 11.6 fL (9.4-12.4); Monocytes Absolute Auto 0.6 X10*3/uL (0.1-1.2); Monocytes Percent Auto 8.1 % (2-11); Neutrophils Absolute Auto 3.6 x10*3/uL (2.0-8.3); Platelet Count 221 X10*3/uL (160-400); Red Blood Count 5.77 X10*6/uL (4.60-5.80); Red Cell Distribution Width 13.7 % (11.0-16.0); White Blood Count 7.2 X10*3/uL (4.8-10.8)
[2024-07-04 22:55] VITALS: BP 130/97; PULSE 73; RESP 16; TEMP 37.2; O2SAT 97
== END 2024-07-04 22:55 | disposition home or self-care (01) ==
PROVIDERS: Physician Assistant; Emergency Provider Emergency Medicine; PCP Internal Medicine
DX: M25.511 Pain in right shoulder (principal)
CPT/HCPCS: 36415; 73030; 80048; 80076; 83735; 84484; 85025; 93005; 99283; 99284

== ENCOUNTER → 2024-07-04 17:22 | Outpatient (BNV) | payer OTHER, SELFPAY | PROVIDERS: PCP Internal Medicine; Visit Provider Radiology Diagnostic Radiology | DX: M25.511 Pain in right shoulder (principal) | CPT/HCPCS: 73030 ==

== ENCOUNTER → 2024-07-04 17:23 | Outpatient (BNV) | payer OTHER, SELFPAY | PROVIDERS: Emergency Provider Emergency Medicine; PCP Internal Medicine; Visit Provider Internal Medicine Cardiovascular Disease | DX: R94.31 Abnormal electrocardiogram [ECG] [EKG] (principal); M25.519 Pain in unspecified shoulder | CPT/HCPCS: 93010 ==

== ENCOUNTER → 2024-07-07 12:10 | Outpatient (BNVA) | payer OTHER, SELFPAY | PROVIDERS: PCP Internal Medicine; Visit Provider Physician Assistant Medical | DX: Z09 Encounter for follow-up examination after completed treatment for conditions other than malignant neoplasm (principal); M54.12 Radiculopathy, cervical region; M24.811 Other specific joint derangements of right shoulder, not elsewhere classified | CPT/HCPCS: 72040; 99204 ==

== ENCOUNTER → 2024-07-11 13:59 | Outpatient (BNVA) | payer OTHER, SELFPAY | PROVIDERS: PCP Internal Medicine; Visit Provider Physician Assistant Medical | DX: M54.12 Radiculopathy, cervical region (principal); M24.811 Other specific joint derangements of right shoulder, not elsewhere classified; M75.41 Impingement syndrome of right shoulder | CPT/HCPCS: 99213 ==

== ENCOUNTER → 2024-07-18 13:45 | Outpatient (BNVA) | payer OTHER, SELFPAY | PROVIDERS: Visit Provider Physician Assistant Medical | DX: R20.2 Paresthesia of skin (principal); R20.0 Anesthesia of skin; M54.12 Radiculopathy, cervical region; M24.811 Other specific joint derangements of right shoulder, not elsewhere classified | CPT/HCPCS: 99213 ==

== ENCOUNTER 2024-07-24 19:49 | Outpatient (REF) | payer OTHER, SELFPAY ==
--- NOTE | ~2024-07-24 | MR_ITS ---
CLINICAL HISTORY: IMPINGEMENT W RADICUOPATHY MR right shoulder without gadolinium Comparison: CR - XR SHOULDER RT MIN 2V - 07/04/24 17:30 EDT Findings: No acute fractures. No pathologic bone lesions. No significant arthritic changes. Type II acromion without downsloping. No joint effusion. No rotator cuff tears. The long head of biceps is intact. No tears of the glenoid labrum. IMPRESSION: Unremarkable right shoulder MRI. This document has been electronically signed by: Adalberto Haley MD on 07/25/2024 11:39:25
== END 2024-07-24 19:50 | disposition home or self-care (01) ==
LOC: HO.MRI 19:49
PROVIDERS: PCP Internal Medicine; Visit Provider Internal Medicine
DX: M75.41 Impingement syndrome of right shoulder (principal)
CPT/HCPCS: 73221

== ENCOUNTER → 2024-07-24 20:26 | Outpatient (BNV) | payer OTHER, SELFPAY | PROVIDERS: PCP Internal Medicine; Visit Provider Radiology Diagnostic Radiology | DX: M75.41 Impingement syndrome of right shoulder (principal) | CPT/HCPCS: 73221 ==

== ENCOUNTER → 2024-07-29 14:02 | Outpatient (BNVA) | payer OTHER, SELFPAY | PROVIDERS: PCP Internal Medicine; Visit Provider Physician Assistant Medical | DX: M54.12 Radiculopathy, cervical region (principal); M24.811 Other specific joint derangements of right shoulder, not elsewhere classified | CPT/HCPCS: 99213 ==

== ENCOUNTER → 2024-08-08 13:46 | Outpatient (BNVA) | payer OTHER, SELFPAY | PROVIDERS: Visit Provider Physician Assistant Medical | DX: M54.12 Radiculopathy, cervical region (principal); M24.811 Other specific joint derangements of right shoulder, not elsewhere classified | CPT/HCPCS: 99213 ==

== ENCOUNTER → 2024-08-10 18:51 | Outpatient (BNV) | payer OTHER, SELFPAY | PROVIDERS: Visit Provider Radiology Diagnostic Radiology | DX: M54.12 Radiculopathy, cervical region (principal) | CPT/HCPCS: 72141 ==

== ENCOUNTER 2024-08-10 19:46 | Outpatient (REF) | payer OTHER, SELFPAY ==
--- NOTE | ~2024-08-10 | MR_ITS ---
EXAM: MRI cervical spine without contrast TECHNIQUE: Multiplanar multisequence imaging through the cervical spine was performed from the base of the skull through at least T1. INDICATION: Cervical radiculopathy, right PRIOR: X-ray July 07, [address] April 05, 2018 FINDINGS: Skull Base: There is no tonsillar ectopia. Cranialcervical junction is intact. Cord: There is no abnormal cord signal or hydrosyringomyelia. Marrow and end-plates: There are no marrow replacing lesions. Alignment: Subtle retrolisthesis is present at C3-4, C4-5, C5-6. Soft tissues: Paraspinal soft tissues and major vascular structures are unremarkable. C2-3: There is no disc bulge and no spinal stenosis. There is mild facet arthropathy on the right and moderate on the left with mild right and mild to moderate left foraminal narrowing. C3-4: Mild broad-based disc bulge results in mild spinal stenosis. Facet and uncovertebral osteophytes contribute to mild right and [id number] left foraminal narrowing. C4-5: Broad-based disc bulge results in mild spinal stenosis. Focal left foraminal extrusion is present. Uncovertebral and facet osteophytes and disc contribute to moderate right and severe left foraminal narrowing. C5-6: Mild broad-based disc bulge results in mild spinal stenosis. Uncovertebral and facet osteophytes results in [id number] foraminal narrowing bilaterally. C6-7: Broad-based disc bulge results in mild spinal stenosis. Right foraminal extrusion is present. Disc with facet and uncovertebral osteophytes results in severe right and mild left foraminal narrowing. C7-T1: There is no disc bulge, herniation, spinal stenosis, or foraminal narrowing. MR/MR cervical spine wo con IMPRESSION: Multilevel degenerative disc disease results in spinal stenosis and foraminal narrowing. C2-3: There mild right and mild to moderate left foraminal narrowing. C3-4: There is mild spinal stenosis with mild right and [id number] left foraminal narrowing. C4-5: There is mild spinal stenosis and focal left foraminal herniation with moderate right and severe left foraminal narrowing. C5-6: There is mild spinal stenosis with [id number] foraminal narrowing bilaterally. C6-7: There is mild spinal stenosis with right foraminal herniation and severe right and mild left foraminal narrowing. Electronically signed by: Kulwinder Barcenas MD 08/11/2024 11:18 AM EDT
== END 2024-08-10 19:47 | disposition home or self-care (01) ==
LOC: HO.MRI 19:46
PROVIDERS: Visit Provider Internal Medicine
DX: M54.12 Radiculopathy, cervical region (principal)
CPT/HCPCS: 72141

== ENCOUNTER → 2024-08-14 08:04 | Outpatient (BNVA) | payer OTHER, SELFPAY | PROVIDERS: Visit Provider Physician Assistant Medical | DX: M50.123 Cervical disc disorder at C6-C7 level with radiculopathy (principal); M24.811 Other specific joint derangements of right shoulder, not elsewhere classified | CPT/HCPCS: 99213 ==

== ENCOUNTER → 2024-09-04 08:57 | Outpatient (BNVA) | payer OTHER, SELFPAY | PROVIDERS: Visit Provider Physician Assistant Medical | DX: M54.12 Radiculopathy, cervical region (principal); M24.811 Other specific joint derangements of right shoulder, not elsewhere classified | CPT/HCPCS: 99213 ==

== ENCOUNTER 2024-09-04 12:57 | Outpatient (AMB) | payer OTHER, SELFPAY ==
[2024-09-04 12:59] VITALS: BP 130/90; PULSE 75; O2SAT 98; BMI 30.4
--- NOTE | 2024-09-04 12:59 | A.OFFPC_ITS ---
Vital Signs 09/04/24 12:59 Height 6 ft Weight 224 lb 6 oz BMI 30.4 BP 130/90 H Blood Pressure Location Lt brachial Position Sitting Pulse 75 Pulse Source Pulse Oximeter Pulse Oximetry (%) 98 Oxygen Delivery Method Room Air Intake Visit Reasons: annual exam/chris Dr Omer Mag[employer] Developer Required: No Accompanied by: Self / Same As Patient Allergies codeine (From TYLENOL-CODEINE #3) Allergy (Severe, Verified 09/04/24 13:16) RASH oxycodone Allergy (Unknown, Verified 09/04/24 13:16) Nausea Medication List - Last Reconciled 09/04/24 by Joe Portillo MD albuterol sulfate 90 mcg/actuation 2 puffs inhalation Q6H PRN albuterol sulfate 90 mcg/actuation (ProAir HFA) 2 puffs PO Q6H PRN cyclobenzaprine 10 mg PO BEDTIME PRN famotidine (Pepcid) 20 mg PO DAILY fluticasone furoate-vilanterol 100-25 mcg/dose (Breo Ellipta) 1 inh inhalation DAILY lidocaine 5% 1 patch topically 1 patch daily q 12 hours; leave on most painful area for up to 12 hrs prednisone 10 mg PO DIRECTED 10 days sertraline 25 mg PO DAILY Tobacco use date assessed: 09/04/24 Dental Screening Dental Screen Date: 09/04/24 HPI annual exam/chris Dr Omer HPI Details Patient comes in today for his annual physical examination - is transferring over from Dr. Herzog, who retired from the practice a few months ago Patient states that he feels okay except for some ongoing neck pain and right shoulder pain, which he has had for a couple of months now Thinks that he sustained the injury from doing a lot of heavy lifting at work He had a shoulder MRI done last month that came out normal; cervical spine MRI revealed spinal stenosis and neural foraminal narrowing and he is currently going to physical therapy for his neck and shoulder He denies any headaches or dizziness Denies any chest pains, no shortness a breath No nausea/vomiting, no abdominal pain No change in bowel habits noted He denies any acute urinary symptoms Needs his asthma inhalers Rx refilled [facility] Medical History (Updated 09/05/24 @ 05:46 by Joe Portillo MD) Obesity (BMI 30-39.9) Mixed hyperlipidemia Asthma Obesity History of COVID-19 Surgical History History of left inguinal hernia repair History of ventral hernia repair S/P excision of lipoma History of appendectomy Family History Father No problems noted. Mother No problems noted. Social History Housing: Apartment Alcohol intake: current Alcohol intake frequency: a few times a month Patient Tobacco Use Status: Never used Tobacco Tobacco use type: Cigarette e-Cigarette/Vaping Use: Never Used Second Hand Smoke Exposure: No service: No Current occupational status: unemployed Cognitive needs: No Hearing needs: No Vision needs: No Questionnaire PHQ-9 Over the last 2 weeks, how often have you been bothered by any of the following problems? 1. Little interest or pleasure in doing things: more than half the days 2. Feeling down, depressed, or hopeless: more than half the days 3. Trouble falling or staying asleep, or sleeping too much: several days 4. Feeling tired or having little energy: several days 5. Poor appetite or overeating: more than half the days 6. Feeling bad about yourself - or that you are a failure or have let yourself or your family down: not at all 7. Trouble concentrating on things, such as reading the newspaper or watching television: several days 8. Moving or speaking so slowly that other people could have noticed. Or the opposite - being so fidgety or restless that you have been moving around a lot more than usual: not at all 9. Thoughts that you would be better off or of hurting yourself in some way: not at all Total score: 9 Depression Screening Interpretation: Positive Depression Screening Follow-up: Existing condition and In treatment Depression Screening Done: Yes 27529 - PHQ-9 Billing: Yes Source: Developed by Drs. Ruben Odonnell, Shirley Song, Bobby Lopez and colleagues, with an educational david from [employer]. Thrive Questionnaire Date Thrive assessed: 09/04/24 I am a: Patient What is your living situation today?: I have a steady place to live Within the past 12 months, did the food you bought not last and you didn't have the money to get more?: Never true Within the past 12 months, did you worry whether your food would run out before you got money to buy more?: Never true Do you have trouble paying for medicines?: No Do you have trouble getting transportation to medical appointments?: No Do you have trouble paying your heating and electricity bill?: No Do you have trouble taking care of your child, family member or friend?: No Do you have trouble with day-to-day activities such as bathing, preparing meals, shopping, managing finances, etc.?: Yes Are you currently unemployed and looking for a job?: No Are you interested in more education?: No Please select the resources that you would like help with: None Currently or been in a relationship where the following occur: No concerns reported THRIVE Score: 0 AUDIT C Alcohol Use Questionnaire (AUDIT-C) 1. How often do you have a drink containing alcohol?: Monthly or less 2. How many drinks containing alcohol do you have on a typical day when you are drinking?: 1 or 2 3. How often do you have six or more drinks on one occasion?: Never Total Score: 1 Score Reviewed/Action Taken: Yes ALEENA-7 AMB Questionnaire ALEENA-7 Date ALEENA - 7 assessed: 09/04/24 Feeling nervous, anxious, or on edge: 0 = Not at all Not being able to stop or control worryin = Several days Worrying too much about different things: 0 = Not at all Trouble relaxin = Not at all Being so restless that it is hard to sit still: 1 = Several days Becoming easily annoyed or irritable: 0 = Not at all Feeling afraid as if something awful might happen: 0 = Not at all Total ALEENA-7 score (0-4 normal; 5-9 mild; 10-14 moderate; 15-21 severe): 2 Source: Developed by Drs. Ruben Odonnell, Shirley Song, Bobby Lopez and colleagues, with an educational david from [employer]. Review of Systems Const Denies chills, Denies fatigue, Denies fever(s), Denies headache(s), Denies malaise and Denies weakness Eyes Denies blurry vision, Denies change in vision, Denies irritation and Denies itchy eyes ENT Denies dysphagia, Denies dizziness, Denies otalgia, Denies headache(s), Denies nasal congestion, Reports neck pain, Denies odynophagia and Denies sore throat Card Denies chest pain, Denies rapid heart rate, Denies irregular heart rhythm, Denies palpitations and Denies dyspnea Resp Denies chest congestion, Denies cough, Denies dyspnea and Denies wheezing GI Denies abdominal pain, Denies bloating, Denies constipation, Denies dysphagia, Denies heartburn, Denies diarrhea, Denies nausea, Denies odynophagia and Denies vomiting Denies hematuria, Denies difficulty urinating, Denies dysuria, Denies urinary frequency and Denies urinary urgency Musc Denies back pain, Reports arthralgias (in the right shoulder), Denies joint swelling, Denies muscle weakness and Reports neck pain Skin/Breast Denies change in pigmentation, Denies lesions, Denies rash and Denies unusual bruising Neuro Denies dizziness, Denies headache(s), Denies paresthesias and Denies weakness Endo Denies fatigue and Denies palpitations Aller/Immun Denies itchy eyes and Denies wheezing Physical exam (Primary Care) Vital Signs: Last Vital Signs Pulse 75 09/04/24 12:59 BP 130/90 H 09/04/24 12:59 Pulse Ox 98 09/04/24 12:59 Oxygen Delivery Method Room Air 09/04/24 12:59 BMI result Body Mass Index 30.4 Tobacco/Smoking Status: Tobacco use Status Tobacco use date assessed 09/04/24 09/04/24 13:07 Patient Tobacco Use Status Never used Tobacco 09/04/24 13:07 Tobacco use type Cigarette 09/04/24 13:07 e-Cigarette/Vaping Use Never Used 09/04/24 13:07 PHQ-9: PHQ-9 Score PHQ-9: Total score 9 09/04/24 13:19 Depression Screening Interpretation: Positive Depression Screening Follow-up: Existing condition and In treatment Thrive Assessment: Date of Thrive Assessment Date Thrive assessed 09/04/24 09/04/24 13:07 Currently or been in a relationship where the following occur: No concerns reported Const General: no acute distress, alert and awake Orientation/consciousness: patient oriented x3 HENMT Head: Yes normocephalic and Yes atraumatic Ears: external ears normal, TM's normal bilaterally and EAC's normal General nose exam: No nasal discharge present Face and sinus: Yes normal facial exam and Yes sinuses nontender Teeth and gingiva: dentition normal Throat: Yes posterior oropharynx normal and Yes tonsils normal (no TP congestion) Eyes Eyelids: Yes eyelids normal Conjunctivae: conjunctivae normal Pupils: Equal, round and reactive pupils present EOM: EOMs intact bilaterally Neck Neck: No lymphadenopathy and Yes tender Thyroid: Thyroid normal Resp Auscultation: clear to auscultation bilaterally, no rales and no wheezes Cardio Rate: regular rate Rhythm: regular rhythm Heart sounds: no murmurs GI Palpation (GI): Soft to palpation, nontender and No hepatosplenomegaly present Auscultation: normal bowel sounds General: Yes no CVA tenderness Back/Spine/Pelvis Back: no CVA tenderness Thoracic/Lumbar Spine: thoracic and lumbar spine normal to inspection Skin Lesions: no lesions Rashes: no rashes Neuro General: patient oriented x3, moves all extremities, no focal motor deficits and CN's II-XI intact bilaterally Cranial nerves: Yes Equal, round and reactive pupils present Cognition (Neuro): normal cognition Gait exam (Neuro): Normal gait present Extrem General: Yes no clubbing, cyanosis or edema Right upper extremity: shoulder/upper arm Details: tenderness (more over the trapezius muscle and area distal to the R neck) Coding Level of Care Code Est Pt Prev Care 40-64y(54066) Diagnoses Annual physical exam Z00.00 Moderate persistent asthma without complication J45.40 Asthma severity: moderate Asthma persistence: persistent Asthma complication type: uncomplicated Mixed hyperlipidemia E78.2 Impaired fasting glucose R73.01 Degenerative disc disease, cervical M50.30 Episode of recurrent major depressive disorder, unspecified depression episode severity F33.9 Depression Type: major depressive disorder Major depression recurrence: recurrent Active/Remission status: currently active Major depression episode severity: unspecified Obesity (BMI 30-39.9) E66.9 Additional Codes PHQ-9 - 42287 - PHQ-9 Billing: Yes ([id number]) Assessment & Plan Assessment & Plan (1) Annual physical exam: Code(s): Z00.00 - Encounter for general adult medical examination without abnormal findings Category: Medical Plan: Check labs (2) Asthma: Comment: (PFT Done 03/08/23 - FEV1: 75 %, FVC: 72 %, FEV1/FVC: 82 %) Code(s): J45.909 - Unspecified asthma, uncomplicated Category: Medical Qualifiers: Asthma severity: moderate Asthma persistence: persistent Asthma complication type: uncomplicated Qualified Code(s): J45.40 - Moderate persistent asthma, uncomplicated Plan: Controlled Continue Breo Ellipta 100-25 mcg 1 inhalation QD and Albuterol HFA 1 to 2 inhalations Q 6 hours PRN (3) Mixed hyperlipidemia: Code(s): E78.2 - Mixed hyperlipidemia Category: Medical Plan: Reinforced low cholesterol diet Will recheck his fasting lipids for follow up (4) Impaired fasting glucose: Comment: (111 on 03/31/19; 110 on 04/04/21; 104 on 04/12/23) Code(s): R73.01 - Impaired fasting glucose Category: Medical Plan: Reinforced low calorie/low carb diet Will recheck his FBS and HgbA1c for follow up (5) Degenerative disc disease, cervical: Comment: (multilevel DDD and C6-C7 right foraminal herniation on 07/2024 MRI - seeing [facility] for WC injury - [place] [facility]) Code(s): M50.30 - Other cervical disc degeneration, unspecified cervical region Category: Medical Plan: Cervical spine MRI done last month (July 2024) revealed (+) multilevel degenerative disc disease results in spinal stenosis and foraminal narrowing, worse at C4-C5 and C6-C7 Continue physical therapy as scheduled He is being followed for this at [facility] as this is likely a worker's comp issues, with the patient likely aggravating his issue while at work Continue Cyclobenzaprine 10 mg Q HS PRN and Lidocaine 5% patch QD PRN Continue physical therapy as scheduled for now (6) Depression: Code(s): F32.A - Depression, unspecified Category: Medical Qualifiers: Depression Type: major depressive disorder Major depression recurrence: recurrent Active/Remission status: currently active Major depression episode severity: unspecified Qualified Code(s): F33.9 - Major depressive disorder, recurrent, unspecified Plan: Continue Sertraline 25 mg QD (7) Obesity (BMI 30-39.9): Code(s): E66.9 - Obesity, unspecified Category: Medical Plan: Reinforced doet/exercise as tolerated/lose weight Plan Follow up in 6 months Orders: Orders Complete Blood Count Auto Diff 09/04/24 D64.9 - Anemia, unspecified, Z00.00 - Encounter for general adult medical examination without abnormal findings Comprehensive [place]. Panel Fast 09/04/24 E78.00 - Pure hypercholesterolemia, unspecified, Z00.00 - Encounter for general adult medical examination without abnormal findings Lipid Panel 09/04/24 E78.00 - Pure hypercholesterolemia, unspecified, Z00.00 - Encounter for general adult medical examination without abnormal findings TSH reflex Free T4 09/04/24 E78.00 - Pure hypercholesterolemia, unspecified, Z00.00 - Encounter for general adult medical examination without abnormal findings UA CC w/rflx Micro + Cult 09/04/24 R30.0 - Dysuria, Z00.00 - Encounter for general adult medical examination without abnormal findings Vitamin D 25-OH Total 09/04/24 E55.9 - Vitamin D deficiency, unspecified, Z00.00 - Encounter for general adult medical examination without abnormal findings Hemoglobin A1c 09/04/24 R73.01 - Impaired fasting glucose Medications: Changed From albuterol sulfate 90 mcg/actuation (ProAir HFA) 2 puffs PO Q6H PRN 18 grams 8RF bronchospasm To albuterol sulfate 90 mcg/actuation (Ventolin HFA) 2 puffs PO Q6H PRN 8.5 grams 5RF shortness of breath or wheezing 30 days Refilled fluticasone furoate-vilanterol 100-25 mcg/dose (Breo Ellipta) 1 inh inhalation DAILY 60 ea 5RF
== END 2024-09-04 13:26 | disposition home or self-care (01) ==
PROVIDERS: Visit Provider Internal Medicine
DX: Z00.00 Encounter for general adult medical examination without abnormal findings (principal); J45.40 Moderate persistent asthma, uncomplicated; E66.9 Obesity, unspecified; Z68.30 Body mass index [BMI] 30.0-30.9, adult; E78.2 Mixed hyperlipidemia; R73.01 Impaired fasting glucose; M50.30 Other cervical disc degeneration, unspecified cervical region; F33.9 Major depressive disorder, recurrent, unspecified

== ENCOUNTER 2024-09-05 09:57 | Outpatient (REF) | payer OTHER, SELFPAY ==
[2024-09-05 10:15] LABS: MANUAL DIFF FLAG NO
[2024-09-05 10:29] LABS: Hematocrit 46.0 % (42.0-52.0); Hemoglobin 15.4 g/dl (14.0-18.0); Imm Gran Abs Auto 0.02 X10*3/uL (0.00-0.03); Imm Gran Pct Auto 0.3 % (0.0-0.4); Lymphocytes Absolute Auto 2.0 X10*3/uL (1.2-4.9); Mean Corpuscular HGB Conc 33.5 g/dl (31.0-36.0); Mean Corpuscular Hemoglobin 26.7 pg (27.0-33.0); Mean Corpuscular Volume 79.9 fL (80.0-98.0); NRBC Abs Auto 0.000 X10*3/uL (0.0-0.012); NRBC Pct Auto 0.0 /100WBC (0.0-0.2); Platelet Count 187 X10*3/uL (160-400); Red Blood Count 5.76 X10*6/uL (4.60-5.80); White Blood Count 6.3 X10*3/uL (4.8-10.8)
[2024-09-05 10:42] LABS: Hemoglobin A1C 148.0629 umol/L; Total Hemoglobin (HGBA1C) 4002.4635 umol/L
[2024-09-05 11:21] LABS: Alanine Aminotransferase 26 U/L (0-40); Albumin Level 4.6 g/dL (3.5-5.0); Alkaline Phosphatase 63 U/L (39-117); Anion Gap 11 (12-20); Aspartate Amino Transferase 17 U/L (5-37); Blood Urea Nitrogen 18 mg/dL (9-16); Calcium 8.8 mg/dL (8.4-10.2); Carbon Dioxide 25 mmol/L (22-29); Chloride 112 mmol/L (96-108); Cholesterol 219 mg/dL (<200); Estimated Glomerular Filt Rate > 60; HDL Cholesterol 39 mg/dL (>40); Potassium 3.8 mmol/L (3.3-5.1); Sodium 144 mmol/L (135-145); Total Protein 7.1 g/dL (6.5-8.0); Triglycerides 147 mg/dL (<150)
[2024-09-05 11:41] LABS: Appearance Urine Clear; Glucose Urine UA Negative (Negative); PH 6.0 (5.0-9.0); Specific Gravity - Urine 1.025 (1.005-1.025)
== END 2024-09-05 09:58 | disposition home or self-care (01) ==
LOC: HO.LAB 09:57
PROVIDERS: PCP Internal Medicine; Visit Provider Internal Medicine
DX: Z00.00 Encounter for general adult medical examination without abnormal findings (principal); E78.00 Pure hypercholesterolemia, unspecified; R30.0 Dysuria; R73.01 Impaired fasting glucose; D64.9 Anemia, unspecified; E55.9 Vitamin D deficiency, unspecified
CPT/HCPCS: 36415; 80053; 80061; 81003; 82306; 83036; 84443; 85025

== ENCOUNTER → 2024-09-11 15:08 | Outpatient (BNVA) | payer OTHER, SELFPAY | PROVIDERS: PCP Internal Medicine; Visit Provider Physician Assistant Medical | DX: M50.123 Cervical disc disorder at C6-C7 level with radiculopathy (principal); M24.811 Other specific joint derangements of right shoulder, not elsewhere classified | CPT/HCPCS: 99213 ==

== ENCOUNTER 2024-09-19 08:51 | Outpatient (AMB) | payer OTHER, SELFPAY ==
--- NOTE | 2024-09-19 08:54 | A.OFFVIS_ITS ---
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 The injury occurred on July 04 while performing physically demanding tasks at work, including lifting heavy weapons and using power tools, which led to numbness and weakness in the right arm. The patient reports significant right anterior shoulder and neck pain, which has been persistent despite physical therapy and medication trials. The patient has undergone physical therapy and has been prescribed medications such as gabapentin, cyclobenzaprine and prednisone, but reports history of adverse reactions to Tylenol with oxycodone or codeine, including nausea and stomach pain. He has also tried ibuprofen, which provides some relief, particularly at night when the pain is most severe. An MRI conducted on August 10 revealed multilevel cervical spondylosis with foraminal narrowing due to bulging discs and degeneration, particularly at C6- C7, correlating with the patient's symptoms of right arm numbness and weakness. The patient has not returned to work due to the severity of symptoms, which include throbbing, stabbing, tingling, pinching and aching pain radiating from the neck to the right arm. - Onset: Began on July 04 during work-related activities - Quality: Throbbing, stabbing, aching, sharp, tingling, radiating, pinching, stiffness - Location: Right side of the neck radiating to the right arm - Radiation: To the right arm with numbness and weakness in fingers (2nd-4th) - Exacerbating factors: Physical activity, particularly lifting and using tools, sleeping on the right side - Relieving factors: Ibuprofen, particularly at night - Interference: Affects sleep, daily activities, and personal functioning - Affect: Pain impacts sleep and daily activities, causing increased depression - Analgesia: Current medications include gabapentin, prednisone, and ibuprofen; goal is to reduce pain severity - Adverse Effects: Nausea and stomach pain from Tylenol and oxycodone - Activities of Daily Living: Pain prevents lifting heavy weights and affects work capability - Aberrant Drug Related Behaviors: None reported Oswestry Neck Pain Disability Score=28 [facility] Medical History Obesity (BMI 30-39.9) Mixed hyperlipidemia Asthma Obesity History of COVID-19 Surgical History History of left inguinal hernia repair History of ventral hernia repair S/P excision of lipoma History of appendectomy Family History Father No problems noted. Mother No problems noted. Social History Housing: Apartment Alcohol intake: current Alcohol intake frequency: a few times a month Patient Tobacco Use Status: Never used Tobacco Tobacco use type: Cigarette e-Cigarette/Vaping Use: Never Used Second Hand Smoke Exposure: No service: No Current occupational status: unemployed Cognitive needs: No Hearing needs: No Vision needs: No Review of Systems Const Details: - Neurological: Reports numbness and weakness in the right arm and fingers. Denies dizziness. - Musculoskeletal: Reports neck and shoulder pain. Denies chest pain, dyspnea or shortness of breaths. - Gastrointestinal: Reports nausea and stomach pain with certain medications. - Psychiatric: Reports depression related to pain. All systems reviewed & are unremarkable except as noted in HPI and below Physical Exam Vital Signs: Last Vital Signs Pulse 92 09/19/24 08:59 BP 154/101 H 09/19/24 08:59 Pulse Ox 97 09/19/24 08:59 Oxygen Delivery Method Room Air 09/19/24 08:59 BMI result Body Mass Index 30.4 General: Appears afebrile. Alert and oriented. Mood and affect appropriate. Follows and participates in conversation appropriately. Respiratory effort is unlabored. No cough. Able to transition from sit to stand unassisted. Ambulates with bilaterally normal heel strike and toe off. Neck Other: Patient with decreased cervical ROM in all planes/especially with lateral rotation. Reports increased pain with cervical extension and flexion. Spurling compression test positive. Elvey's tension test positive on the right, with radiation of pain from neck to wrist and fingers (2-4th). Lhermitte's test was negative. DTR intact, +2 and symmetrical. Patient demonstrated 5/5 left and 4/5 right motor strength of bilateral upper extremities. 2 + radial pulses. Significant tightness throughout right upper trapezius as well as TTP throughout bilateral upper and lower trapezius muscles. No paravertebral tenderness over facet joints bilaterally. Right shoulder full ROM, pain in the anterior shoulder with overhead reach and behind the back movements. Neck: Yes normal visual inspection, Yes no lymphadenopathy, Yes supple, No anterior neck swelling, Yes no JVD, No prominent supraclavicular fat pad and Yes prominent dorsocervical fat pad Back/Spine/Pelvis Cervical Spine: No collar present, cervical muscular tenderness, pain with cervical ROM, No Cervical spine scars present, cervical spasm, No Cervical spine tenderness and No step off deformity Thoracic/Lumbar Spine: thoracic and lumbar spine normal to inspection, No Thoracic/lumbar spine scar(s), pain with thoraco-lumbar ROM, No thoracic spinal tenderness and No lumbar spinal tenderness Results Reviewed Results Reviewed: MRI cervical spine without contrast 08/10/24 TECHNIQUE: Multiplanar multisequence imaging through the cervical spine was performed from the base of the skull through at least T1. INDICATION: Cervical radiculopathy, right PRIOR: X-ray July 07, [address] April 05, 2018 FINDINGS: Skull Base: There is no tonsillar ectopia. Cranialcervical junction is intact. Cord: There is no abnormal cord signal or hydrosyringomyelia. Marrow and end-plates: There are no marrow replacing lesions. Alignment: Subtle retrolisthesis is present at C3-4, C4-5, C5-6. Soft tissues: Paraspinal soft tissues and major vascular structures are unremarkable. C2-3: There is no disc bulge and no spinal stenosis. There is mild facet arthropathy on the right and moderate on the left with mild right and mild to moderate left foraminal narrowing. C3-4: Mild broad-based disc bulge results in mild spinal stenosis. Facet and uncovertebral osteophytes contribute to mild right and hkvu-px-vsjjdrmu left foraminal narrowing. C4-5: Broad-based disc bulge results in mild spinal stenosis. Focal left foraminal extrusion is present. Uncovertebral and facet osteophytes and disc contribute to moderate right and severe left foraminal narrowing. C5-6: Mild broad-based disc bulge results in mild spinal stenosis. Uncovertebral and facet osteophytes results in dhdq-bs-znmljbyu foraminal narrowing bilaterally. C6-7: Broad-based disc bulge results in mild spinal stenosis. Right foraminal extrusion is present. Disc with facet and uncovertebral osteophytes results in severe right and mild left foraminal narrowing. C7-T1: There is no disc bulge, herniation, spinal stenosis, or foraminal narrowing. IMPRESSION: Multilevel degenerative disc disease results in spinal stenosis and foraminal narrowing. C2-3: There mild right and mild to moderate left foraminal narrowing. C3-4: There is mild spinal stenosis with mild right and ocvk-ui-zhzcflcz left foraminal narrowing. C4-5: There is mild spinal stenosis and focal left foraminal herniation with moderate right and severe left foraminal narrowing. C5-6: There is mild spinal stenosis with stet-ex-bwjufrnf foraminal narrowing bilaterally. C6-7: There is mild spinal stenosis with right foraminal herniation and severe right and mild left foraminal narrowing. MR shoulder RT wo con 07/25/24 CLINICAL HISTORY: IMPINGEMENT W RADICUOPATHY MR right shoulder without gadolinium Comparison: CR - XR SHOULDER RT MIN 2V - 07/04/24 17:30 EDT Findings: No acute fractures. No pathologic bone lesions. No significant arthritic changes. Type II acromion without downsloping. No joint effusion. No rotator cuff tears. The long head of biceps is intact. No tears of the glenoid labrum. IMPRESSION: Unremarkable right shoulder MRI. XR shoulder RT min 2V 07/04/24 CLINICAL HISTORY: R shoulder pain 4 view right shoulder Comparison: None Findings: Bones intact. No dislocations. No significant arthritic change. No erosions. No radiopaque foreign body. IMPRESSION: 1. No acute findings Assessment & Plan Assessment & Plan (1) Degenerative disc disease, cervical: Comment: (multilevel DDD and C6-C7 right foraminal herniation on 07/2024 MRI - seeing [facility] for WC injury - pending [facility] Pain Management apt) Code(s): M50.30 - Other cervical disc degeneration, unspecified cervical region Category: Medical (2) Cervical radiculopathy: Code(s): M54.12 - Radiculopathy, cervical region Category: Medical (3) Cervical spondylosis: Code(s): M47.812 - Spondylosis without myelopathy or radiculopathy, cervical region Category: Medical (4) Muscle spasms of neck: Code(s): M62.838 - Other muscle spasm Category: Medical (5) Work related injury: Code(s): Y99.0 - Civilian activity done for income or pay Category: Medical Plan The plan includes administering a C6-C7 interlaminar right parasagittal epidural steroid injection under fluoroscopy with local and oral Ativan to manage the cervical radiculopathy. Expectations, risks and benefits were reviewed. Patient is aware he will be contacted to schedule this procedure. The patient will be monitored for response to the injection, and if effective, a repeat injection may be considered in 3 months. If the pain persists or worsens, a referral to a Neurosurgeon will be considered. The patient is advised to continue home exercises and use ibuprofen, gabapentin, lidocaine patches, and muscle relaxant as needed for pain relief. Adry will continue to follow up with the [employer] team for work restrictions to determine when the patient can safely return to duty. At this time, patient has not reached his maximum medical improvement due to ongoing pain and radicular symptoms associated with weakness. All questions and concerns have been answered and patient agreed with the plan. Follow up after injection and sooner as needed. Patient was informed and verbally consented to the use of an ambient scribe for clinic note documentation during this visit. Patient Instructions: I discussed with the patient the diagnosis of cervical radiculopathy with degenerative changes and spondylosis and the proposed treatment plan, including the C6-C7 interlaminar epidural steroid injection as initial steps. We also will consider to address axial cervical spine pain with potential diagnostic medial branch blocks for RFA or Sprint PNS trial. I explained the potential benefits and limitations of the therapeutic CHARLES injection, noting that it may provide temporary relief and that repeat injection might be necessary. We also discussed the possibility of surgical intervention if conservative measures fail, and the importance of monitoring for any red flags indicating neurological and motor deficits. The patient was informed about the follow-up process with pain management and the role of the [employer] team in assessing his ability to return to work. Coding Level of Care Code New Pt Level 4 (88614) Diagnoses Degenerative disc disease, cervical M50.30 Cervical radiculopathy M54.12 Cervical spondylosis M47.812 Muscle spasms of neck M62.838 Work related injury Y99.0
[2024-09-19 08:59] VITALS: BP 154/101; PULSE 92; O2SAT 97; BMI 30.4
== END 2024-09-19 09:32 | disposition home or self-care (01) ==
LOC: HO.PMC 08:52
PROVIDERS: PCP Internal Medicine; Visit Provider Nurse Practitioner Family
DX: M50.30 Other cervical disc degeneration, unspecified cervical region (principal); M54.12 Radiculopathy, cervical region; M47.812 Spondylosis without myelopathy or radiculopathy, cervical region; M62.838 Other muscle spasm; Y99.0 Civilian activity done for income or pay
CPT/HCPCS: 99204

== ENCOUNTER → 2024-09-19 08:51 | Outpatient (BNVA) | payer OTHER, SELFPAY | PROVIDERS: PCP Internal Medicine; Visit Provider Nurse Practitioner Family | DX: M54.12 Radiculopathy, cervical region (principal); M62.838 Other muscle spasm; M47.812 Spondylosis without myelopathy or radiculopathy, cervical region; M50.30 Other cervical disc degeneration, unspecified cervical region | CPT/HCPCS: 99202 ==

== ENCOUNTER → 2024-10-02 14:49 | Outpatient (BNVA) | payer OTHER, SELFPAY | PROVIDERS: PCP Internal Medicine; Visit Provider Physician Assistant Medical | DX: M50.123 Cervical disc disorder at C6-C7 level with radiculopathy (principal); M24.811 Other specific joint derangements of right shoulder, not elsewhere classified | CPT/HCPCS: 99213 ==

== ENCOUNTER 2024-10-03 14:00 | Outpatient (RCR) | payer OTHER, SELFPAY ==
--- NOTE | 2024-07-22 16:04 | MHC.PT.EP ---
[facility] [place] Office [place] Office [place] Office [address] Yanely Lauren [address] [phone] F: [phone] F: [phone] F: [phone] F: [phone] Physical Therapy Plan of Care Date of Evaluation: 07/22/24 Date of Surgery: Diagnosis: RIGHT shoulder impingement, cervical radiculopathy (MD Dx) RS Assessment: Anurag is a pleasant, motivated 44 y.o. male who is referred to PT by Sherin Agarwal PA-C of [employer] with worker's compensation injury with Dx of RIGHT shoulder impingement, cervical radiculopathy. He presents with radicular symptoms effecting C6-T1 on R .Patient impairments include poor posture, protected postures R UE, limited R shoulder AROM, weakness and pain R shoulder, radicular sxs R UE to hand, all digits. Patient current functional limitations are lifting overhead, reaching, difficulty putting on shirts, open jars, turning door knob. Patient will benefit from skilled PT to address aforementioned impairments and functional limitations to meet established goals. Frequency and Duration: The patient will be seen 2-3x/week for 6 weeks Short Term Goals: 3 weeks Patient demonstrates consistency and independence with HEP to self manage symptoms. Patient is able to understand and experience centralization of R UE peripheral symptoms. Shelter Goals: 6 weeks Patient presents with increased R shoulder flexion 160 degrees to reach overhead for dressing.. Patient presents with increased R shoulder ER 90 degrees to restore mobility for reaching behind back for bathing. Patient presents with increased R shoulder flexion strength 4+/5 to be able to lift 10# 4 pallet to waist for work tasks. Treatment Plan: Modalities to reduce pain, spasms and effusion. Manual therapy to restore motion and function. Therapeutic exercise to improve strength and flexibility. Neuromuscular re-education for posture and balance. Therapeutic activities to return to functional activities of daily living. Electronically signed by: Yadiel Gamble, PT, DPT Please sign and return to therapist. Thank you for your referral.
--- NOTE | 2024-11-07 10:34 | MHC.PT.DC ---
[facility] [place] Office [place] Office [place] Office [address] Yanely Lauren [address] [phone] F: [phone] F: [phone] F: [phone] F: [phone] Physical Therapy Discharge Report Diagnosis: RIGHT shoulder impingement, cervical radiculopathy ( Dx) RS Date of Surgery: Date of Evaluation: 07/22/24 Date of Discharge: 11/07/24 Treatments to Date: 20 Cancellations to Date: 4 No Shows to Date: 0 Discharge Status: Improved Function Independent with HEP Recommend MD Follow-up Discharge Summary: Anurag was last seen on 10/03/24 and the assessment reads, Anurag is able to complete full program with resisted machines for shoulder and scapular strengthening and endurance. He completed authorized PT sessions today. He shows progress with R shoulder and cervical ROM, increased R shoulder strength but still c/o R sided neck pain and radicular numbness/tingling to R hand. He is scheduled to have EMG study and is awaiting insurance to approve injection as he was already seen by pain management. We discuss putting PT on hold until these interventions are performed before asking for more sessions and continuing PT. 11/07/2024 I reviewed Anurag's chart and he received injections from pain management yesterday. Therefore will discharged from PT at this time as he is under their care. MD can re-refer for PT if needed. Electronically signed by: Yadiel Gamble, PT, DPT Please sign and return to therapist. Thank you for your referral.
== END 2024-11-07 10:34 | disposition home or self-care (01) ==
LOC: HO.PT 14:00
PROVIDERS: Visit Provider Physician Assistant Medical
DX: M25.811 Other specified joint disorders, right shoulder (principal); M54.12 Radiculopathy, cervical region
CPT/HCPCS: 97012; 97014; 97110; 97140; 97161; 97530; 97535

== ENCOUNTER 2024-10-28 08:16 | Outpatient (REF) | payer OTHER, SELFPAY ==
--- NOTE | 2024-10-28 08:20 | EMG_ITS ---
Chief complaint: Right hand and arm pain Reason for referral: NCV/ EMG Referred by: ROSE Man Procedure done: Nerve Conduction study and EMG was performed on right upper extremity Right median and ulnar motor and sensory studies were performed right radial sensory and medial and lateral antecubital brachial sensory studies were performed an EMG needle examination was performed. Impression: 1. Mild right ulnar neuropathy across cubital tunnel 2. No evidence of median neuropathy MTDD
== END 2024-10-28 08:17 | disposition home or self-care (01) ==
LOC: HO.NEURO 08:16
PROVIDERS: PCP Internal Medicine; Visit Provider Physician Assistant Medical
DX: M54.12 Radiculopathy, cervical region (principal); R20.0 Anesthesia of skin; M79.601 Pain in right arm; M50.223 Other cervical disc displacement at C6-C7 level; M24.811 Other specific joint derangements of right shoulder, not elsewhere classified
CPT/HCPCS: 95886; 95910

== ENCOUNTER → 2024-10-28 08:20 | Outpatient (BNV) | payer OTHER, SELFPAY | PROVIDERS: PCP Internal Medicine; Visit Provider Psychiatry & Neurology Neurology | DX: M54.12 Radiculopathy, cervical region (principal); R20.2 Paresthesia of skin | CPT/HCPCS: 95886; 95909 ==

== ENCOUNTER 2024-11-06 06:21 | Outpatient (REF) | payer OTHER, SELFPAY ==
--- NOTE | ~2024-11-06 | FL_ITS ---
EXAMINATION: FL GUIDANCE ONLY HISTORY: M54.12 - Radiculopathy, cervical region COMPARISON: None available. TECHNIQUE: Fluoroscopy time: 0.3 minutes. Cumulative Dose: 3.20 mGy. DAP: 0.288 mGym2 Images: 3. FINDINGS: Fluoroscopic spot films of the cervical spine demonstrate a needle and contrast material in place on the right. FL/FL guidance in treatment room IMPRESSION: Fluoroscopy during procedure. Please see procedure report for additional information. Electronically signed by: Ruben Ayala MD 11/06/2024 03:19 PM EDT
== END 2024-11-06 06:22 | disposition home or self-care (01) ==
LOC: CF 06:21
PROVIDERS: Visit Provider Internal Medicine
DX: M54.12 Radiculopathy, cervical region (principal)
CPT/HCPCS: 62321; J1100; J2003; Q9967

== ENCOUNTER 2024-11-06 11:53 | Outpatient (AMB) | payer OTHER, SELFPAY ==
[2024-11-06 12:00] VITALS: BP 154/96; PULSE 83; RESP 16; O2SAT 97; BMI 30.4
--- NOTE | 2024-11-06 12:00 | MHC.OFFVIS ---
Vital Signs 11/06/24 12:00 11/06/24 12:38 Height 6 ft Weight 224 lb BMI 30.4 BP 154/96 H 156/91 H Blood Pressure Location Lt brachial Lt brachial Position Sitting Sitting Respiration 16 16 Pulse 83 71 Pulse Source Pulse Oximeter Pulse Oximeter Pulse Oximetry (%) 97 97 Oxygen Delivery Method Room Air Room Air Intake Visit Reasons: Right parasagittal interlaminar C6-C7 CHARLES Allergies codeine (From TYLENOL-CODEINE #3) Allergy (Severe, Verified 09/19/24 08:59) RASH oxycodone Allergy (Unknown, Verified 09/19/24 08:59) Nausea HPI HPI Right parasagittal interlaminar C6-C7 CHARLES: Details: Patient presents for scheduled procedure. Denies any recent cough, cold, infection, fever or other significant changes in medical history since last office visit. [facility] Medical History Obesity (BMI 30-39.9) Mixed hyperlipidemia Asthma Obesity History of COVID-19 Surgical History History of left inguinal hernia repair History of ventral hernia repair S/P excision of lipoma History of appendectomy Family History Father No problems noted. Mother No problems noted. Social History Housing: Apartment Alcohol intake: current Alcohol intake frequency: a few times a month Patient Tobacco Use Status: Never used Tobacco Tobacco use type: Cigarette e-Cigarette/Vaping Use: Never Used Second Hand Smoke Exposure: No service: No Current occupational status: unemployed Cognitive needs: No Hearing needs: No Vision needs: No Physical Exam Vital Signs: Last Vital Signs Pulse 71 11/06/24 12:38 Resp 16 11/06/24 12:38 BP 156/91 H 11/06/24 12:38 Pulse Ox 97 11/06/24 12:38 Oxygen Delivery Method Room Air 11/06/24 12:38 BMI result Body Mass Index 30.4 Office Procedures AMB Joint Injection/Aspiration Joint Injection/Aspiration Details: Interlaminar epidural steroid injection, C6/7, Right parasaggital After obtaining written consent, pre-procedure blood pressure and heart rate were stable and recorded in the nursing record. The patient was placed in the prone position. The cervicothoracic area was widely prepped with chloraprep and draped in sterile fashion. Fluoroscopic guidance was used to identify the desired interlaminar space and for needle placement. Subcutaneous 0.5% lidocaine was used to anesthetize the skin overlying the target. A 20-gauge Mccormick needle was advanced to the epidural space using loss of resistance to contrast technique under fluoroscopic AP and contralateral oblique views. There was no evidence of heme or CSF and no paresthesias were elicited with needle placement. Confirmation of epidural needle placement was performed with 1cc of omnipaque 180. Next 3 ml 0.5% lidocaine mixed with 10 mg dexamethasone was administered epidurally with no pain elicited on injection. The needle tract tubing was then cleared with 1 ml of 0.5% lidocaine. The needle was removed, skin cleansed and a sterile bandage was applied. The patient tolerated the procedure well and no complications were encountered. Following the procedure the patient's vital signs were stable. The patient was discharged home in good condition with post-procedural instructions. Time Out: Immediately prior to the procedure, the following was verbally confirmed that there is a signed consent form and that the correct patient, planned procedure, site and side are consistent with documentation and that necessary equipment and/or blood products are available prior to the start of the case. Complications: none EBL: <2 cc Coding 83341 - Cervical Epidural/Interlaminar with fluoroscopy Procedure code (CPT) selection complete Assessment & Plan Assessment & Plan (1) Cervical radiculopathy: Code(s): M54.12 - Radiculopathy, cervical region Category: Medical Plan Patient is status post right parasagittal interlaminar C6-7 CHARLES. Patient tolerated procedure well and was discharged home in stable condition with discharge instructions. All questions were answered. We will follow-up via telephone or in clinic to assess response to therapy. A follow-up appointment was made during today's visit. Orders: Orders FL guidance in treatment room 11/06/24 M54.12 - Radiculopathy, cervical region Coding Level of Care Code Procedure Only Diagnoses Cervical radiculopathy M54.12 CPT Codes Coding - Joint 10: 88880 - Cervical Epidural/Interlaminar with fluoroscopy ([id number])
[2024-11-06 12:38] VITALS: BP 156/91; PULSE 71; RESP 16; O2SAT 97
== END 2024-11-06 12:40 | disposition home or self-care (01) ==
LOC: HO.PMCPRC 11:53
PROVIDERS: PCP Internal Medicine; Visit Provider Internal Medicine
DX: M54.12 Radiculopathy, cervical region (principal)
CPT/HCPCS: 62321

== ENCOUNTER → 2024-11-14 15:23 | Outpatient (BNVA) | payer OTHER, SELFPAY | PROVIDERS: Visit Provider Physician Assistant Medical | DX: M54.12 Radiculopathy, cervical region (principal); M50.223 Other cervical disc displacement at C6-C7 level; M24.811 Other specific joint derangements of right shoulder, not elsewhere classified | CPT/HCPCS: 99213 ==

== ENCOUNTER 2024-12-04 10:01 | Outpatient (AMB) | payer OTHER, SELFPAY ==
--- NOTE | 2024-12-04 10:08 | MHC.OFFVIS ---
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 The injection was performed on November 06, 2024, by Dr. Guerrero. The patient reported that the injection provided approximately 70% relief of neck pain, but the numbness and tingling in the fingers persisted, particularly affecting the fourth, third, and second fingers on the right hand. 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 The patient also reported neuropathic symptoms at the elbow, which contributes to the pain and numbness experienced in the right arm. He is scheduled for evaluation by [facility] on 01/13/25. - Affect: The pain impacts the patient's ability to use the right hand effectively, which is significant as the patient is right-handed. - Analgesia: The epidural steroid injection provided approximately 70% relief of neck pain. - Activities of Daily Living: The numbness and pain interfere with the patient's ability to perform tasks requiring the use of the right hand. Past Procedures: 11/06/24: Right C6-C7 interlaminar parasagittal CHARLES-70% ongoing pain relief PRIOR: The patient is a 44-year-old male presenting with cervical radiculopathy due to a work-related injury. The injury occurred on July 04 while performing physically demanding tasks at work, including lifting heavy weapons and using power tools, which led to numbness and weakness in the right arm. The patient reports significant right anterior shoulder and neck pain, which has been persistent despite physical therapy and medication trials. The patient has undergone physical therapy and has been prescribed medications such as gabapentin, cyclobenzaprine and prednisone, but reports history of adverse reactions to Tylenol with oxycodone or codeine, including nausea and stomach pain. He has also tried ibuprofen, which provides some relief, particularly at night when the pain is most severe. An MRI conducted on August 10 revealed multilevel cervical spondylosis with foraminal narrowing due to bulging discs and degeneration, particularly at C6-C7, correlating with the patient's symptoms of right arm numbness and weakness. The patient has not returned to work due to the severity of symptoms, which include throbbing, stabbing, tingling, pinching and aching pain radiating from the neck to the right arm. - Onset: Began on July 04 during work-related activities - Quality: Throbbing, stabbing, aching, sharp, tingling, radiating, pinching, stiffness - Location: Right side of the neck radiating to the right arm - Radiation: To the right arm with numbness and weakness in fingers (2nd-4th) - Exacerbating factors: Physical activity, particularly lifting and using tools, sleeping on the right side - Relieving factors: Ibuprofen, particularly at night - Interference: Affects sleep, daily activities, and personal functioning - Affect: Pain impacts sleep and daily activities, causing increased depression - Analgesia: Current medications include gabapentin, prednisone, and ibuprofen; goal is to reduce pain severity - Adverse Effects: Nausea and stomach pain from Tylenol and oxycodone - Activities of Daily Living: Pain prevents lifting heavy weights and affects work capability - Aberrant Drug Related Behaviors: None reported Oswestry Neck Pain Disability Score=28 [facility] Medical History Obesity (BMI 30-39.9) Mixed hyperlipidemia Asthma Obesity History of COVID-19 Surgical History History of left inguinal hernia repair History of ventral hernia repair S/P excision of lipoma History of appendectomy Family History Father No problems noted. Mother No problems noted. Social History Housing: Apartment Alcohol intake: current Alcohol intake frequency: a few times a month Patient Tobacco Use Status: Never used Tobacco Tobacco use type: Cigarette e-Cigarette/Vaping Use: Never Used Second Hand Smoke Exposure: No service: No Current occupational status: unemployed Cognitive needs: No Hearing needs: No Vision needs: No Review of Systems Const All systems reviewed & are unremarkable except as noted in HPI and below Physical Exam Vital Signs: Last Vital Signs Pulse 88 12/04/24 10:18 BP 148/101 H 12/04/24 10:18 Pulse Ox 100 12/04/24 10:18 Oxygen Delivery Method Room Air 12/04/24 10:18 BMI result Body Mass Index 31.5 General: Appears afebrile. Alert and oriented. Mood and affect appropriate. Follows and participates in conversation appropriately. Respiratory effort is unlabored. No cough. Able to transition from sit to stand unassisted. Ambulates with bilaterally normal heel strike and toe off. Neck Neck: Yes normal visual inspection, Yes no lymphadenopathy, Yes supple, No anterior neck swelling, Yes no JVD, No prominent supraclavicular fat pad and Yes prominent dorsocervical fat pad Back/Spine/Pelvis Cervical Spine: pain with cervical ROM (mild), No Cervical spine scars present and No Cervical spine tenderness Thoracic/Lumbar Spine: thoracic and lumbar spine normal to inspection, No Thoracic/lumbar spine scar(s), No thoracic spinal tenderness and No lumbar spinal tenderness Results Reviewed Results Reviewed: MRI cervical spine without contrast 08/10/24 TECHNIQUE: Multiplanar multisequence imaging through the cervical spine was performed from the base of the skull through at least T1. INDICATION: Cervical radiculopathy, right PRIOR: X-ray July 07, [address] April 05, 2018 FINDINGS: Skull Base: There is no tonsillar ectopia. Cranialcervical junction is intact. Cord: There is no abnormal cord signal or hydrosyringomyelia. Marrow and end-plates: There are no marrow replacing lesions. Alignment: Subtle retrolisthesis is present at C3-4, C4-5, C5-6. Soft tissues: Paraspinal soft tissues and major vascular structures are unremarkable. C2-3: There is no disc bulge and no spinal stenosis. There is mild facet arthropathy on the right and moderate on the left with mild right and mild to moderate left foraminal narrowing. C3-4: Mild broad-based disc bulge results in mild spinal stenosis. Facet and uncovertebral osteophytes contribute to mild right and zquj-ww-raabjrhz left foraminal narrowing. C4-5: Broad-based disc bulge results in mild spinal stenosis. Focal left foraminal extrusion is present. Uncovertebral and facet osteophytes and disc contribute to moderate right and severe left foraminal narrowing. C5-6: Mild broad-based disc bulge results in mild spinal stenosis. Uncovertebral and facet osteophytes results in jeoa-fe-nnojbxxz foraminal narrowing bilaterally. C6-7: Broad-based disc bulge results in mild spinal stenosis. Right foraminal extrusion is present. Disc with facet and uncovertebral osteophytes results in severe right and mild left foraminal narrowing. C7-T1: There is no disc bulge, herniation, spinal stenosis, or foraminal narrowing. IMPRESSION: Multilevel degenerative disc disease results in spinal stenosis and foraminal narrowing. C2-3: There mild right and mild to moderate left foraminal narrowing. C3-4: There is mild spinal stenosis with mild right and tywa-lb-awgvqdus left foraminal narrowing. C4-5: There is mild spinal stenosis and focal left foraminal herniation with moderate right and severe left foraminal narrowing. C5-6: There is mild spinal stenosis with fcwf-yj-uaouqnxz foraminal narrowing bilaterally. C6-7: There is mild spinal stenosis with right foraminal herniation and severe right and mild left foraminal narrowing. MR shoulder RT wo con 07/25/24 CLINICAL HISTORY: IMPINGEMENT W RADICUOPATHY MR right shoulder without gadolinium Comparison: CR - XR SHOULDER RT MIN 2V - 07/04/24 17:30 EDT Findings: No acute fractures. No pathologic bone lesions. No significant arthritic changes. Type II acromion without downsloping. No joint effusion. No rotator cuff tears. The long head of biceps is intact. No tears of the glenoid labrum. IMPRESSION: Unremarkable right shoulder MRI. XR shoulder RT min 2V 07/04/24 CLINICAL HISTORY: R shoulder pain 4 view right shoulder Comparison: None Findings: Bones intact. No dislocations. No significant arthritic change. No erosions. No radiopaque foreign body. IMPRESSION: 1. No acute findings NE electromyogram (EMG); NE nerve conduction velocity 10/28/24 Chief complaint: Right hand and arm pain Reason for referral: NCV/ EMG Referred by: Askley May, PA Procedure done: Nerve Conduction study and EMG was performed on right upper extremity Right median and ulnar motor and sensory studies were performed right radial sensory and medial and lateral antecubital brachial sensory studies were performed an EMG needle examination was performed. Impression: 1. Mild right ulnar neuropathy across cubital tunnel 2. No evidence of median neuropathy Assessment & Plan Assessment & Plan (1) Ulnar neuropathy of right upper extremity: Code(s): G56.21 - Lesion of ulnar nerve, right upper limb Category: Medical (2) Degenerative disc disease, cervical: Comment: (multilevel DDD and C6-C7 right foraminal herniation on 07/2024 MRI - [facility] - pending [facility] apt) Code(s): M50.30 - Other cervical disc degeneration, unspecified cervical region Category: Medical (3) Cervical radiculopathy: Code(s): M54.12 - Radiculopathy, cervical region Category: Medical (4) Cervical spondylosis: Code(s): M47.812 - Spondylosis without myelopathy or radiculopathy, cervical region Category: Medical Plan The plan includes upcoming Hand specialist visit as scheduled for further evaluation of the right ulnar neuropathy. Occupational therapy is recommended to preserve the function of the arm and address the numbness and pain in the right hand. The patient will be contacted by the therapy center to schedule sessions, with options available at the [place] location per patient's request. Patient is aware cervical CHARLES injection may be repeated after 3 months if neck symptoms return to baseline. All questions and concerns have been answered and patient agreed with the treatment plan. Follow up as needed. Patient was informed and verbally consented to the use of an ambient scribe for clinic note documentation during this visit. Orders: Orders OT Evaluation and Treatment 12/04/24 G56.21 - Lesion of ulnar nerve, right upper limb Coding Level of Care Code Est Pt Level 3 (74795) Complex EM visit Add On G2211 Diagnoses Ulnar neuropathy of right upper extremity G56.21 Degenerative disc disease, cervical M50.30 Cervical radiculopathy M54.12 Cervical spondylosis M47.812
[2024-12-04 10:18] VITALS: BP 148/101; PULSE 88; O2SAT 100; BMI 31.5
== END 2024-12-04 10:26 | disposition home or self-care (01) ==
LOC: HO.PMC 10:01
PROVIDERS: PCP Internal Medicine; Visit Provider Nurse Practitioner Family
DX: G56.21 Lesion of ulnar nerve, right upper limb (principal); M50.30 Other cervical disc degeneration, unspecified cervical region; M54.12 Radiculopathy, cervical region; M47.812 Spondylosis without myelopathy or radiculopathy, cervical region
CPT/HCPCS: 99213; G2211

== ENCOUNTER → 2024-12-04 10:01 | Outpatient (BNVA) | payer OTHER, SELFPAY | PROVIDERS: PCP Internal Medicine; Visit Provider Nurse Practitioner Family | DX: G56.21 Lesion of ulnar nerve, right upper limb (principal); M50.20 Other cervical disc displacement, unspecified cervical region; M47.812 Spondylosis without myelopathy or radiculopathy, cervical region | CPT/HCPCS: 99212 ==

== ENCOUNTER → 2024-12-12 12:47 | Outpatient (BNVA) | payer OTHER, SELFPAY | PROVIDERS: PCP Internal Medicine; Visit Provider Physician Assistant Medical | DX: M50.123 Cervical disc disorder at C6-C7 level with radiculopathy (principal); M24.811 Other specific joint derangements of right shoulder, not elsewhere classified; G56.21 Lesion of ulnar nerve, right upper limb | CPT/HCPCS: 99213 ==

== ENCOUNTER 2025-01-13 13:57 | Outpatient (AMB) | payer OTHER, SELFPAY ==
--- NOTE | 2025-01-13 13:59 | MHC.OFFVIS ---
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 Patient reports this is status post a Worker's Comp injury from 07/04/24. 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 Patient complains of right index, middle, and ring finger numbness and tingling with associated sleep disturbance. Patient reports symptoms are almost daily and intermittent, making it difficult to wound care rn, squeeze, and open and close lids. Denies finger locking. Has not tried braces, steroid injections, or OT. Denies any prior injuries or surgeries to the right hand.? Impression 10/28/24: 1. Mild right ulnar neuropathy across cubital tunnel 2. 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 Patient reports this is status post a Worker's Comp injury from 07/04/24. 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 Patient complains of right index, middle, and ring finger numbness and tingling with associated sleep disturbance. Patient reports symptoms are almost daily and intermittent, making it difficult to wound care rn, squeeze, and open and close lids. Denies finger locking. Has not tried braces, steroid injections, or OT. Denies any prior injuries or surgeries to the right hand.? Impression 10/28/24: 1. Mild right ulnar neuropathy across cubital tunnel 2. No evidence of median neuropathy [facility] Medical History Obesity (BMI 30-39.9) Mixed hyperlipidemia Asthma Obesity History of COVID-19 Surgical History History of left inguinal hernia repair History of ventral hernia repair S/P excision of lipoma History of appendectomy Family History Father No problems noted. Mother No problems noted. Social History Housing: Apartment Alcohol intake: current Alcohol intake frequency: a few times a month Patient Tobacco Use Status: Never used Tobacco Tobacco use type: Cigarette e-Cigarette/Vaping Use: Never Used Second Hand Smoke Exposure: No service: No Current occupational status: unemployed Cognitive needs: No Hearing needs: No Vision needs: No Review of Systems Const All systems reviewed & are unremarkable except as noted in HPI and below Physical Exam Vital Signs: BMI result Body Mass Index 31.7 Extrem Other: Patient is alert, oriented, and in no acute distress. Neuro: Diminished sensation of the tips of all digits of the left hand at this time Vascular: Cap refill brisk Pain: Some discomfort with range of motion of the left hand ROM: Patient is able to make a closed fist and extend all digits of the left hand fully Skin: No lacerations or abrasions. General: No ecchymosis, erythema, or evidence of infection. Psych: Appears grossly normal Affect normal Attitude cooperative Assessment & Plan Assessment & Plan (1) Cubital tunnel syndrome on left: Code(s): G56.22 - Lesion of ulnar nerve, left upper limb Category: Medical (2) Numbness and tingling of left hand: Code(s): R20.0 - Anesthesia of skin; R20.2 - Paresthesia of skin Category: Medical Plan 1. Numbness and tingling left hand Worst in median nerve distribution with no carpal tunnel on EMG 2. Cubital tunnel syndrome, left Patient is educated about this condition Patient is educated about the typical recovery course I feel it is best for the patient to follow-up with Dr. Tovar at this time, as there is no evidence of carpal tunnel on EMG but his symptoms are more consistent with carpal tunnel syndrome Patient is educated that the treatment for cubital tunnel syndrome is surgical, and he is open to proceeding with this, however he would like to be evaluated by Dr. Tovar because the symptoms in the median nerve distribution are much more bothersome and he would like to get these treated if possible Therefore, patient will follow-up in 3-[address] Tovar for reassessment, sooner with any acute concerns Coding Level of Care Code New Pt Level 3 (66530) Diagnoses Cubital tunnel syndrome on left G56.22 Numbness and tingling of left hand R20.0; R20.2
[2025-01-13 14:01] VITALS: BMI 31.7
== END 2025-01-13 14:35 | disposition home or self-care (01) ==
PROVIDERS: PCP Internal Medicine
DX: G56.22 Lesion of ulnar nerve, left upper limb (principal); R20.0 Anesthesia of skin; R20.2 Paresthesia of skin
CPT/HCPCS: 99203

== ENCOUNTER → 2025-01-13 13:57 | Outpatient (BNVA) | payer OTHER, SELFPAY | PROVIDERS: PCP Internal Medicine | DX: G56.21 Lesion of ulnar nerve, right upper limb (principal); R20.0 Anesthesia of skin; R20.2 Paresthesia of skin | CPT/HCPCS: 99202 ==

== ENCOUNTER → 2025-01-22 13:54 | Outpatient (BNVA) | payer OTHER, SELFPAY | PROVIDERS: PCP Internal Medicine; Visit Provider Physician Assistant Medical | DX: G56.21 Lesion of ulnar nerve, right upper limb (principal); M50.223 Other cervical disc displacement at C6-C7 level; M24.811 Other specific joint derangements of right shoulder, not elsewhere classified; X50.3XXD Overexertion from repetitive movements, subsequent encounter | CPT/HCPCS: 99213 ==

== ENCOUNTER 2025-01-28 15:00 | Outpatient (RCR) | payer OTHER, SELFPAY ==
--- NOTE | 2024-12-19 07:57 | MHC.PT.EP ---
[facility] [place] Office [place] Office [place] Office [address] Yanely Lauren [address] [phone] F: [phone] F: [phone] F: [phone] F: [phone] Physical Therapy Plan of Care Date of Evaluation: 12/17/24 Date of Surgery: Diagnosis: R cervical radiculopathy, DDD, R shoulder derangement. 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 He he has recently trialed PT with mild improvement and was recommended to f/u with MD and is returned to restart therapy for his R arm and neck function s/p right parasagittal interlaminar C6-C7 epidural steroid injection performed on 11/06/[address] Guerrero of pain management. Pt reports his current condition is resulting in decreased tolerance and ability for reaching high shelves, dressing pullovers, carrying objects of weight, turning his head to the R and looking up, driving a vehicle, performing heavy HH chores, as well as frequent MULTANI, and disturbed sleep secondary to decreased R shoulder ROM and strength, decreased cervical ROM, increased R > L cervical tissue tension, TTP of R cervical and superior/ posterior R shoulder, decreased scapular posture, he reports he persists with R hand n/t and has a script to follow up re. ulnar nerve entrapment, and pain. Pt is deemed an appropriate candidate to receive skilled PT services to address their physical impairments in order to improve their functional ability. Frequency and Duration: The patient will be seen 2 x/ wk x 6 wks. Short Term Goals: Initiate home program. Pt will improve pain with activity to < 7/10; initial: 11/28 Assisted Goals: I with home program. Pt will be able to reach high shelves with managed Sx. initial: Pt will improve his SPADI outcome measure by at least 13 points. Pt will improve NDI by at least 9 points. Pt will report at most moderate sleep loss 2-3 hours d/t pain; initial: reports complete loss 5-7 hours. Pt will be able to dress pullovers with managed Sx; initial 10/10 difficulty. Treatment Plan: Modalities to reduce pain, spasms and effusion. Manual therapy to restore motion and function. Therapeutic exercise to improve strength and flexibility. Neuromuscular re-education for posture and balance. Therapeutic activities to return to functional activities of daily living. Electronically signed by: Jaren Holder PT. Please sign and return to therapist. Thank you for your referral.
--- NOTE | 2025-01-28 16:56 | MHC.PT.DC ---
[facility] [place] Office [place] Office [place] Office [address] Yanely Lauren [address] [phone] F: [phone] F: [phone] F: [phone] F: [phone] Physical Therapy Discharge Report Diagnosis: R cervical radiculopathy, DDD, R shoulder derangement. Date of Surgery: Date of Evaluation: 12/17/24 Date of Discharge: 01/28/25 Treatments to Date: 12 Cancellations to Date: No Shows to Date: Discharge Status: Improved Function Independent with HEP Discharge Summary: Anurag has been an active participant in his therapy in and out of the clinic and though he persists with some pain and n/t of his R 4th and 5th fingers though overall improved; he has met most of his therapeutic goals; he's I with his home program; has improved his SPADI shoulder outcome by 30 points; his NDI outcome did not demonstrate improvement though he does report improved pain. He is DC'd to his home program. He has an ortho evaluation 02/04 for assessment of his R elbow. Electronically signed by: Jaren Holedr PT Please sign and return to therapist. Thank you for your referral.
== END 2025-01-28 16:56 | disposition home or self-care (01) ==
LOC: HO.PT 15:00
PROVIDERS: PCP Internal Medicine; Visit Provider Physician Assistant Medical
DX: M54.12 Radiculopathy, cervical region (principal); M24.9 Joint derangement, unspecified; M25.511 Pain in right shoulder
CPT/HCPCS: 97014; 97110; 97140; 97161; 97530; 97535

== ENCOUNTER 2025-02-04 11:04 | Outpatient (AMB) | payer OTHER, SELFPAY ==
--- NOTE | 2025-02-04 11:27 | A.OFFVIS_ITS ---
Intake Visit Reasons: OV-L hand numbness, tingling, pain, all digits, on Intake Note: Anurag 44 yr old - hand dominant male presents today for a follow up visit for further evaluation of his right hand? CTS. At his last visit with Cheryl Lua, he advise patient to follow-up with Dr. Tovar, as there is no evidence of carpal tunnel on EMG but his symptoms are more consistent with carpal tunnel syndrome. Patient was educated that the treatment for cubital tunnel syndrome is surgical, and he is open to proceeding with this, however he would like to be evaluated by Dr. Tovar because the symptoms in the median nerve distribution are much more bothersome and he would like to get these treated if possible. Administrative Medical Director Name: Janis HALEY/ELIZABETH Allergies codeine (From TYLENOL-CODEINE #3) Allergy (Severe, Verified 02/04/25 11:32) RASH oxycodone Allergy (Unknown, Verified 02/04/25 11:32) Nausea HPI HPI OV-L hand numbness, tingling, pain, all digits, on: Details: Anurag is a 44 year old right hand dominant man who presents for a NCS review of his right hand numbness. He complains primarily of numbness in all his digits. With dense numbness in the ulnar nerve distribution. Symptoms intermittent, but daily, worse at night in the median nerve distribution. 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 Per note from ROSE Lua on 01/13/25, he claims this is from a work comp injury on 07/04/24. He denies any prior treatment . He has known DDD of his right C6-C7 and is following with Pain Management for his neck pain. He has received a spine injection and been sent to PT. [facility] Medical History Obesity (BMI 30-39.9) Mixed hyperlipidemia Asthma Obesity History of COVID-19 Surgical History History of left inguinal hernia repair History of ventral hernia repair S/P excision of lipoma History of appendectomy Family History Father No problems noted. Mother No problems noted. Social History Housing: Apartment Alcohol intake: current Alcohol intake frequency: a few times a month Patient Tobacco Use Status: Never used Tobacco Tobacco use type: Cigarette e-Cigarette/Vaping Use: Never Used Second Hand Smoke Exposure: No service: No Current occupational status: unemployed Cognitive needs: No Hearing needs: No Vision needs: No Review of Systems Const All systems reviewed & are unremarkable except as noted in HPI and below Physical Exam Const General: cooperative, healthy appearing and no acute distress Orientation/consciousness: patient oriented x3 HEENT Head: Yes normocephalic and Yes atraumatic Eyes EOM: EOMs intact bilaterally Resp Effort & Inspection: normal respiratory effort and able to speak in complete sentences Cardio Jugular venous distension: no JVD Skin General skin exam: turgor normal Rashes: no rashes Neuro General: patient oriented x3 Extrem Other: Evaluation of Right Upper Extremity: The patient is alert, oriented, and in no acute distress Neuro: Dense numbness in the ulnar nerve distribution. Decreased subjective sensation in the index & middle fingers today in clinic. Normal sensation in the thumb today in clinic. No thenar or intrinsic wasting Good APB muscle belly firing and good finger cross Good ABduction & ADduction Vascular: Cap refill brisk ROM: He can make a fist and extend all his digits No locking or catching Skin: No lacerations or abrasions. General: No Ecchymosis. No Erythema or evidence of infection. Nerve Conduction Study: Right-side only Impression: 1. Mild right ulnar neuropathy across cubital tunnel 2. No evidence of median neuropathy Dictated By: Eduardo Kennedy MD 10/28/24 C-spine MRI from 08/10/2024: Multilevel degenerative disc disease results in spinal stenosis and foraminal narrowing. C2-3: There mild right and mild to moderate left foraminal narrowing. C3-4: There is mild spinal stenosis with mild right and [id number]-[id number] left foraminal narrowing. C4-5: There is mild spinal stenosis and focal left foraminal herniation with moderate right and severe left foraminal narrowing. C5-6: There is mild spinal stenosis with [id number] foraminal narrowing bilaterally. C6-7: There is mild spinal stenosis with right foraminal herniation and severe right and mild left foraminal narrowing. Electronically signed by: Kulwinder Barcenas MD 08/11/2024 11:18 AM EDT Signed By: <Electronically signed by Kulwinder Barcenas MD in OV> 08/11/24 1118 Psych Appearance: grossly normal Affect: normal affect Attitude: cooperative Assessment & Plan Assessment & Plan (1) Cubital tunnel syndrome on right: Code(s): G56.21 - Lesion of ulnar nerve, right upper limb Category: Medical (2) Numbness and tingling in right hand: Code(s): R20.0 - Anesthesia of skin; R20.2 - Paresthesia of skin Category: Medical (3) Degenerative disc disease, cervical: Comment: (multilevel DDD and C6-C7 right foraminal herniation on 07/2024 MRI - seeing [facility] for WC injury - pending [facility] Pain Management apt) Code(s): M50.30 - Other cervical disc degeneration, unspecified cervical region Category: Medical (4) Asthma: Comment: (PFT Done 03/08/23 - FEV1: 75 %, FVC: 72 %, FEV1/FVC: 82 %) Code(s): J45.909 - Unspecified asthma, uncomplicated Category: Medical Qualifiers: Asthma complication type: uncomplicated Asthma persistence: persistent Asthma severity: moderate Qualified Code(s): J45.40 - Moderate persistent asthma, uncomplicated Plan Assessment & Plan: 1. Right cubital tunnel syndrome, mild Dense numbness 2. Right hand numbness Decreased subjective sensation in the index & middle fingers today in clinic. Normal sensation in the thumb today in clinic. Symptoms intermittent, but daily, worse at night NCS from 10/28/24 negative for carpal tunnel syndrome 3. Right cervical radiculopathy C6-C7 seen on MRI He is being seen by pain management for this I educated him about these conditions I discussed operative and non-operative treatment options. His median nerve numbness may be related to his C-spine and I recommend he continue to be evaluated by our Interventional spine colleagues, or by our spine specialists. We can discuss conferring with them about this after his surgery, if his symptoms don't improve The patient would like to proceed with surgery The risks and benefits of operative treatment were discussed with the patient and the patient wishes to proceed with surgery. These risks include, but are not limited to risk of damage to blood vessels, nerves, tendons, infection, recurrence, incomplete relief of preoperative symptoms, persistent pain, possible need for further surgery and the risks associated with regional blocks and anesthesia. The plan is to take the patient to the operating room sometime in the next few weeks for the following procedures: 1. Right cubital tunnel release, under general All of the preoperative paperwork including the consent was reviewed today. All the patient's questions were answered. The patient understands that they will be contacted by our special service officer soon to schedule this procedure He denies Diabetes, blood thinners, heart, lung, kidney issues He has asthma Scribed for Josiane Tovar MD by Dakota Ruth medical certification specialist, on 02/04/25 at 12:00 PM, EST. Coding Level of Care Code Est Pt Level 4 (13997) Diagnoses Cubital tunnel syndrome on right G56.21 Numbness and tingling in right hand R20.0; R20.2 Degenerative disc disease, cervical M50.30 Moderate persistent asthma without complication J45.40 Asthma complication type: uncomplicated Asthma persistence: persistent Asthma severity: moderate
== END 2025-02-04 12:33 | disposition home or self-care (01) ==
LOC: HO.HOS 11:05
PROVIDERS: PCP Internal Medicine; Visit Provider Orthopaedic Surgery
DX: G56.21 Lesion of ulnar nerve, right upper limb (principal); R20.0 Anesthesia of skin; R20.2 Paresthesia of skin; M50.30 Other cervical disc degeneration, unspecified cervical region; J45.40 Moderate persistent asthma, uncomplicated
CPT/HCPCS: 99214

== ENCOUNTER → 2025-02-04 11:04 | Outpatient (BNVA) | payer OTHER, SELFPAY | PROVIDERS: PCP Internal Medicine; Visit Provider Orthopaedic Surgery | DX: Z01.818 Encounter for other preprocedural examination (principal); G56.21 Lesion of ulnar nerve, right upper limb; R20.0 Anesthesia of skin; R20.2 Paresthesia of skin; M50.30 Other cervical disc degeneration, unspecified cervical region; J45.40 Moderate persistent asthma, uncomplicated | CPT/HCPCS: 99212 ==

== ENCOUNTER 2025-02-16 09:52 | Outpatient (AMB) | payer OTHER, SELFPAY ==
--- NOTE | 2025-02-16 10:08 | A.OFFPC_ITS ---
Vital Signs 02/16/25 10:10 02/16/25 11:01 Height 6 ft Weight 243 lb BMI 33.0 BP 150/82 H 142/84 H Blood Pressure Location Lt brachial Lt brachial Position Sitting Sitting Pulse 90 Pulse Source Pulse Oximeter Temp 97.1 F Temp Source Temporal Artery Scan Pulse Oximetry (%) 98 Oxygen Delivery Method Room Air Intake Visit Reasons: Rt Cubital Tunnel Release 03/05/25 DR Tovar Intake Note: Patient is here for a Pre-op for Right Cubital Tunnel Release scheduled with Dr Tovar ([facility]) on 03/05/25. Radiation Control Specialist Required: No Supervisor Assembly Room: Not Required per policy Accompanied by: Self / Same As Patient Allergies codeine (From TYLENOL-CODEINE #3) Allergy (Severe, Verified 02/16/25 13:59) RASH oxycodone Allergy (Intermediate, Verified 02/16/25 13:59) Nausea Medication List - Last Reconciled 02/16/25 by LEE ANN Das albuterol sulfate 90 mcg/actuation (Ventolin HFA) 2 puffs PO Q6H PRN 30 days cyclobenzaprine 10 mg PO BEDTIME PRN fluticasone furoate-vilanterol 100-25 mcg/dose (Breo Ellipta) 1 inh inhalation DAILY ibuprofen 800 mg PO TID Tobacco use date assessed: 02/16/25 Dental Screening Dental Screen Date: 09/04/24 HPI Rt Cubital Tunnel Release 03/05/25 DR Tovar HPI Details The patient is a 44 year old male presenting for pre-operative medical clearance for a right hand surgery scheduled for March 05. He reports symptoms in his right hand, specifically a sensation he describes as his fingers falling asleep, which has been ongoing since approximately 0742-1000. He had prior injections in his back which did not alleviate the symptoms, and subsequent diagnostic tests determined the problem originated in his hand, leading to the planned surgery. Surgery: Right cubital tunnel release Date: 03/05/2025 Surgeon/location: Dr. Tovar at [facility] orthopedics (hand specialist), [place], [place] His past surgical history includes a hernia surgery, a procedure on his abdomen by his belly button, and the removal of a small tumor from posterior head. He has tolerated anesthesia in the past without issues. He denies any history of shortness of breath, chest pain, stomach pain, or changes in bowel habits. Upon arrival, his blood pressure was slightly elevated, which he attributed to rushing and consuming a large coffee. Rechecked blood pressure shows that the blood pressure was trending down. Health Maintenance - Pre-operative evaluation for right mantilla d surgery. - Pre-operative EKG ordered due to [facility] ed general anesthesia. - [facility], blood count, and coagulation status. [facility] Medical History (Updated 02/16/25 @ 12:37 by Francheska Lee RN) DDD (degenerative disc disease), cervical Depression Obesity (BMI 30-39.9) Mixed hyperlipidemia Asthma History of COVID-19 Surgical History History of left inguinal hernia repair History of ventral hernia repair S/P excision of lipoma History of appendectomy Family History Father No problems noted. Mother No problems noted. Social History Housing: Apartment Alcohol intake: current Alcohol intake frequency: a few times a month Patient Tobacco Use Status: Never used Tobacco Tobacco use type: Cigarette e-Cigarette/Vaping Use: Never Used Second Hand Smoke Exposure: No service: No Current occupational status: unemployed Cognitive needs: No Hearing needs: No Vision needs: Yes (Glasses) Questionnaire Thrive Questionnaire Date Thrive assessed: 09/03/24 I am a: Patient What is your living situation today?: I have a steady place to live Within the past 12 months, did the food you bought not last and you didn't have the money to get more?: Never true Within the past 12 months, did you worry whether your food would run out before you got money to buy more?: Never true Do you have trouble paying for medicines?: No Do you have trouble getting transportation to medical appointments?: No Do you have trouble paying your heating and electricity bill?: No Do you have trouble taking care of your child, family member or friend?: No Do you have trouble with day-to-day activities such as bathing, preparing meals, shopping, managing finances, etc.?: Yes Are you currently unemployed and looking for a job?: No Are you interested in more education?: No Currently or been in a relationship where the following occur: No concerns reported THRIVE Score: 0 ALEENA-7 AMB Questionnaire ALEENA-7 Date ALEENA - 7 assessed: 09/04/24 Source: Developed by Drs. Ruben Odonnell, Shirley Song, Bobby Lopez and colleagues, with an educational david from [employer]. Review of Systems Narrative Review of Systems - Neurological: Reports paresthesia in his right hand fingers, described as them sleeping. - Cardiovascular: Denies chest pain. - Respiratory: Denies shortness of breath. - Gastrointestinal: Denies stomach pain or change in bowel habits. Const Denies headache(s) Eyes Denies loss of vision ENT Denies vertigo, Denies dizziness, Denies headache(s) and Denies sore throat Card Denies chest pain, Denies leg edema and Denies lightheadedness Resp Denies cough, Denies hemoptysis and Denies wheezing GI Denies abdominal pain, Denies melena, Denies constipation, Denies diarrhea and Denies vomiting Denies dysuria, Denies urinary frequency and Denies urinary urgency Musc Denies arthralgias, Denies joint swelling, Reports numbness (last three fingers on right hand) and Denies tingling Neuro Denies Abnormal speech present, Denies behavioral changes, Denies vertigo, Denies dizziness, Denies headache(s), Denies loss of vision, Denies memory loss, Reports numbness (last three fingers on right hand) and Denies tingling Psych Denies anxiety, Denies behavioral changes, Denies depression, Denies memory loss and Denies panic attacks Nam/Lymph Denies easy bleeding and Denies easy bruising Aller/Immun Denies wheezing Physical exam (Primary Care) Vital Signs: Last Vital Signs Temp 97.1 F 02/16/25 10:10 Pulse 90 02/16/25 10:10 BP 142/84 H 02/16/25 11:01 Pulse Ox 98 02/16/25 10:10 Oxygen Delivery Method Room Air 02/16/25 10:10 BMI result Body Mass Index 33.0 Tobacco/Smoking Status: Tobacco use Status Tobacco use date assessed 02/16/25 02/16/25 10:16 Patient Tobacco Use Status Never used Tobacco 02/16/25 10:16 Tobacco use type Cigarette 02/16/25 10:16 e-Cigarette/Vaping Use Never Used 02/16/25 10:16 Thrive Assessment: Date of Thrive Assessment Date Thrive assessed 09/03/24 02/16/25 10:16 Currently or been in a relationship where the following occur: No concerns reported Narrative Physical Exam - General: Patient is alert and oriented. - Vitals: Initial blood pressure was slightly elevated; it improved on recheck. - Cardiovascular: Heart auscultation clear. - Respiratory: Lungs are clear to auscultation. Const General: healthy appearing, no acute distress, alert and awake Nutritional Appearance: well nourished Orientation/consciousness: oriented to person, oriented to place and oriented to time HENMT Ears: TM's normal bilaterally General nose exam: Normal nasal mucous membranes and turbinates present Eyes Conjunctivae: conjunctivae normal Sclerae: sclerae normal Pupils: Equal, round and reactive pupils present Neck Neck: Yes no lymphadenopathy and Yes no JVD Thyroid: Thyroid normal Carotids: no bruits Resp Effort & Inspection: normal respiratory effort and not tachypneic Auscultation: no crackles, no rales, no rhonchi and no wheezes Cardio Rate: regular rate Rhythm: regular rhythm Heart sounds: no murmurs and normal S1 and S2 GI Palpation (GI): Soft to palpation, nontender, no hepatomegaly and no splenomegaly Auscultation: normal bowel sounds Skin General skin exam: no rashes or lesions noted and dry skin Neuro General: oriented to person, oriented to place and oriented to time Cranial nerves: Yes Equal, round and reactive pupils present Speech: No Abnormal speech present Gait exam (Neuro): Normal gait present Motor exam (neuro): no tremor noted Extrem Right upper extremity: full ROM Left upper extremity: full ROM Right lower extremity: full ROM; no edema Left lower extremity: full ROM; no edema Psych Mental Status: mental status grossly normal Speech and movement: Normal speech and movement present Affect: normal affect Attitude: cooperative Thought process: Normal thought process present Results Reviewed Results Reviewed: Laboratory Tests 02/16/25 02/16/25 11:04 11:09 WBC 7.7 RBC 5.76 Hgb 15.4 Hct 46.4 MCV 80.6 MCH 26.7 L MCHC 33.2 RDW 13.9 Plt Count 222 PT 12.6 INR 1.0 Sodium 142 Potassium 3.9 Chloride 111 H Carbon Dioxide 25 Anion Gap 10 L BUN 14 Creatinine 0.87 Estimated GFR > 60 Random Glucose 110 Estimat Average Glucose 117 Hemoglobin A1c % 5.7 Calcium 9.2 TSH 2.62 Urine Color Yellow Urine Appearance Clear Urine pH 6.0 Ur Specific [place] 1.025 Urine Protein Trace Urine Glucose (UA) Negative Urine Ketones Trace Urine Blood Negative Urine Nitrite Negative Ur Leukocyte Esterase Trace H Urine RBC 0-2 Urine WBC 0-5 Ur Squamous Epith Cells 0-2 Urine Bacteria None Seen Hyaline Casts 0-2 Coding Level of Care Code Est Pt Level 4 (01097) Diagnoses Preoperative clearance Z01.818 Moderate persistent asthma without complication J45.40 Asthma complication type: uncomplicated Asthma persistence: persistent Asthma severity: moderate Mixed hyperlipidemia E78.2 Impaired fasting glucose R73.01 Degenerative disc disease, cervical M50.30 Obesity (BMI 30-39.9) E66.9 Cubital tunnel syndrome on right G56.21 Time Spent (min) 37 Assessment & Plan Assessment & Plan (1) Preoperative clearance: Code(s): Z01.818 - Encounter for other preprocedural examination Category: Medical Plan: The patient is cleared for surgery from a medical standpoint. He will proceed with pre-operative blood work today, which includes evaluation of kidney function, blood count, and coagulation status; fasting is not required. An EKG is also ordered for today due to the planned use of general anesthesia. Labs and EKG reviewed. EKG showed nonspecific ST abnormality and possible left atrial enlargement. Echo ordered to further evaluate. (2) Asthma: Comment: (PFT Done 03/08/23 - FEV1: 75 %, FVC: 72 %, FEV1/FVC: 82 %) Code(s): J45.909 - Unspecified asthma, uncomplicated Category: Medical Qualifiers: Asthma complication type: uncomplicated Asthma persistence: persistent Asthma severity: moderate Qualified Code(s): J45.40 - Moderate persistent asthma, uncomplicated Plan: Controlled Continue Breo Ellipta 100-25 mcg 1 inhalation QD and Albuterol HFA 1 to 2 inhalations Q 6 hours PRN (3) Mixed hyperlipidemia: Code(s): E78.2 - Mixed hyperlipidemia Category: Medical Plan: Triglycerides 147, total cholesterol 219, LDL 151, HDL 39, 08/2024 Reinforced low cholesterol diet We will continue to monitor (4) Impaired fasting glucose: Comment: (111 on 03/31/19; 110 on 04/04/21; 104 on 04/12/23) Code(s): R73.01 - Impaired fasting glucose Category: Medical Plan: A1c 5.7% Reinforced low calorie/low carb diet We will continue to monitor fasting glucose and A1c (5) Degenerative disc disease, cervical: Comment: (multilevel DDD and C6-C7 right foraminal herniation on 07/2024 MRI - seeing [facility] for WC injury - pending [facility] Pain Management apt) Code(s): M50.30 - Other cervical disc degeneration, unspecified cervical region Category: Medical Plan: Cervical spine MRI done last month (July 2024) revealed (+) multilevel degenerative disc disease results in spinal stenosis and foraminal narrowing, worse at C4-C5 and C6-C7 Continue physical therapy as scheduled He is being followed for this at [facility] as this is likely a worker's comp issues, with the patient likely aggravating his issue while at work Continue Cyclobenzaprine 10 mg Q HS PRN and Lidocaine 5% patch QD PRN Continue physical therapy as scheduled for now (6) Obesity (BMI 30-39.9): Code(s): E66.9 - Obesity, unspecified Category: Medical Plan: Reinforced doet/exercise as tolerated/lose weight (7) Cubital tunnel syndrome on right: Code(s): G56.21 - Lesion of ulnar nerve, right upper limb Category: Medical Plan: The patient reports chronic numbness and tingling in his right hand last three fingers, which is the indication for his surgery on March 05. The surgery is intended to restore normal function and sensation. He is scheduled for a follow- up appointment on March 09 at 1 p.m. Orders: Orders Complete Blood Count Auto Diff 02/16/25 Z01.818 - Encounter for other prepr ocedural examination Basic Metabolic Panel 02/16/25 Z01.818 - Encounter for other preprocedural examination UA CC w/rflx Micro + Cult 02/16/25 Z01.818 - Encounter for other preprocedural examination Hemoglobin A1c 02/16/25 Z01.818 - Encounter for other preprocedural examination TSH reflex Free T4 02/16/25 Z01.818 - Encounter for other preprocedural examination Prothrombin Time INR 02/16/25 Z01.818 - Encounter for other preprocedural examination ECG 12 lead EKG 02/16/25 Z01.818 - Encounter for other preprocedural examination
[2025-02-16 10:10] VITALS: BP 150/82; PULSE 90; TEMP 36.2; O2SAT 98; BMI 33.0
[2025-02-16 11:01] VITALS: BP 142/84
== END 2025-02-16 10:57 | disposition home or self-care (01) ==
LOC: HO.HMCH 09:53
PROVIDERS: PCP Internal Medicine
DX: Z01.818 Encounter for other preprocedural examination (principal); J45.40 Moderate persistent asthma, uncomplicated; E78.2 Mixed hyperlipidemia; R73.01 Impaired fasting glucose; M50.30 Other cervical disc degeneration, unspecified cervical region; E66.9 Obesity, unspecified; G56.21 Lesion of ulnar nerve, right upper limb

== ENCOUNTER → 2025-02-16 09:52 | Outpatient (REF) | payer OTHER, SELFPAY ==
--- NOTE | 2025-02-16 11:05 | ECG_ITS ---
Test Reason : preop Blood Pressure : */* mmHG Vent. Rate : 89 BPM Atrial Rate : 89 BPM P-R Int : 158 ms QRS Dur : 76 ms QT Int : 360 ms P-R-T Axes : 51 52 45 degrees QTcB Int : 438 ms Normal sinus rhythm Possible Left atrial enlargement Nonspecific ST abnormality Borderline ECG When compared with ECG of 04-Jul-2024 17:29, No significant change was found Referred By: Hans Sauceda Electronically Signed By: RAMESH PIERCE
[2025-02-16 11:10] LABS: MANUAL DIFF FLAG NO
[2025-02-16 11:34] LABS: Hematocrit 46.4 % (42.0-52.0); Hemoglobin 15.4 g/dl (14.0-18.0); Imm Gran Abs Auto 0.03 X10*3/uL (0.00-0.03); Imm Gran Pct Auto 0.4 % (0.0-0.4); Lymphocytes Absolute Auto 2.5 X10*3/uL (1.2-4.9); Mean Corpuscular HGB Conc 33.2 g/dl (31.0-36.0); Mean Corpuscular Hemoglobin 26.7 pg (27.0-33.0); Mean Corpuscular Volume 80.6 fL (80.0-98.0); NRBC Abs Auto 0.000 X10*3/uL (0.0-0.012); NRBC Pct Auto 0.0 /100WBC (0.0-0.2); Platelet Count 222 X10*3/uL (160-400); Red Blood Count 5.76 X10*6/uL (4.60-5.80); White Blood Count 7.7 X10*3/uL (4.8-10.8)
[2025-02-16 11:45] LABS: INTERNATIONAL NORM RATIO 1.0 (0.9-1.1); Prothrombin Time 12.6 SEC (11.2-13.5)
[2025-02-16 11:45] LABS: Appearance Urine Clear; Glucose Urine UA Negative (Negative); PH 6.0 (5.0-9.0); Specific Gravity - Urine 1.025 (1.005-1.025); UMIC TRIGGER UACC YES
[2025-02-16 12:29] LABS: Anion Gap 10 (12-20); Blood Urea Nitrogen 14 mg/dL (9-16); Calcium 9.2 mg/dL (8.4-10.2); Carbon Dioxide 25 mmol/L (22-29); Chloride 111 mmol/L (96-108); Estimated Glomerular Filt Rate > 60; Potassium 3.9 mmol/L (3.3-5.1); Sodium 142 mmol/L (135-145)
== END ==
LOC: HO.CARD 09:52
PROVIDERS: PCP Internal Medicine
DX: Z01.818 Encounter for other preprocedural examination (principal); J45.40 Moderate persistent asthma, uncomplicated; E78.2 Mixed hyperlipidemia; R73.01 Impaired fasting glucose; M50.30 Other cervical disc degeneration, unspecified cervical region; E66.9 Obesity, unspecified; G56.21 Lesion of ulnar nerve, right upper limb; Z68.33 Body mass index [BMI] 33.0-33.9, adult
CPT/HCPCS: 36415; 80048; 81001; 83036; 84443; 85025; 85610; 93005; 99212

== ENCOUNTER → 2025-02-16 11:05 | Outpatient (BNV) | payer OTHER, SELFPAY | PROVIDERS: PCP Internal Medicine; Visit Provider Internal Medicine | DX: Z01.818 Encounter for other preprocedural examination (principal) | CPT/HCPCS: 93010 ==